=== PATIENT | male | born 1935 | race Caucasian/White ===

== ENCOUNTER → 2017-12-09 10:00 | Outpatient (CLI) | payer MEDICARE, OTHER, SELFPAY ==
[2017-12-09 12:32] LABS: Anion Gap 7 (5-15); BUN 21 mg/dL (7-18); BUN/Creat Ratio 17.6 RATIO (10-20); Calcium,Total 8.5 mg/dL (8.5-10.1); Chloride 108 mmol/L (98-107); Creatinine, Serum 1.19 mg/dL (0.70-1.30); EST Glomerular Filtration Rate 63 mL/min (>60); Est Glom Filt Rate - Afr Amer 76 mL/min (>60); Glucose 122 mg/dL (74-106); Sodium Level 142 mmol/L (136-145)
== END ==
PROVIDERS: Family Provider Family Medicine; PCP Family Medicine; Visit Provider Family Medicine
DX: I10 Essential (primary) hypertension (principal)
CPT/HCPCS: 36415; 80048

== ENCOUNTER → 2018-06-09 08:47 | Outpatient (CLI) | payer MEDICARE, OTHER, SELFPAY ==
[2018-06-09 10:32] LABS: AST(SGOT) 16 U/L (15-37); Alanine Aminotransfer ALT/SGPT 23 U/L (16-61); Albumin, Serum 3.4 g/dL (3.2-5.0); Alkaline Phosphatase 62 U/L (45-117); Anion Gap 10 (5-15); BUN 22 mg/dL (7-18); BUN/Creat Ratio 15.7 RATIO (10-20); Bilirubin, Direct 0.14 mg/dL (0.00-0.30); Calcium,Total 8.3 mg/dL (8.5-10.1); Chloride 107 mmol/L (98-107); Cholesterol 104 mg/dL (200); EST Glomerular Filtration Rate 52 mL/min (>60); Est Glom Filt Rate - Afr Amer 63 mL/min (>60); Globulin 3.9 g/dL (2.2-4.2); Glucose 130 mg/dL (74-106); High Density Lipoprotein 52 mg/dL; Protein, Total 7.3 g/dL (6.4-8.2); Sodium Level 144 mmol/L (136-145); Triglycerides 90 mg/dL; Very Low Density Lipoprotein 18 mg/dL (5-40)
[2018-06-09 10:59] LABS: Microalbumin:Creatinine Ratio 2095.5 mg/g CRE (<30 mg/g CRE)
--- OUTSIDE RECORDS SUMMARY | 2018-09-10 20:02 | XMS RPT_ITS ---
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 criteria. Please note revised GLUCOSE reference range effective 2017. LAB L501.1000 7-18 mg/dL High BUN 22 LAB L501.1100 0.70-1.30 mg/dL High CREAT,SERUM 1.40 Result Comment: The validity of the calculated GFR AND GFRAA in patients over 70 years has not been determined. Clinical correlation is essential. LAB L501.1110 >60 mL/min Low EST GFR 52 Result Comment: Non- GFR Calc LAB L501.1115 >60 mL/min Normal EST GFR - AA 63 Result Comment: GFR Calc LAB L501.1300 10-20 RATIO Normal BUN/CRE 15.7 LAB L501.2200 8.5-10.1 mg/dL Low CA 8.3 LAB L501.5300 136-145 mmol/L NA Normal 144 LAB L501.5600 3.5-5.1 mmol/L K Normal 4.0 LAB L501.5900 98-107 mmol/L CL Normal 107 LAB L501.6100 21.0-32.0 mmol/L Normal CO2 27.0 LAB L501.6200 5-15 Normal GAP 10 Performed By: #### L500.2500, L500.3400, L500.4100 #### [facility] [address] [place], [address] LIVER PROFILE Collected: 06/09/2018 Status: F Source: [place] 8:49 AM [facility] REPOSITORY TYPE CODE TESTS RESULT OUT OF RANGE REFERENCE UNITS LAB L501.1500 6.4-8.2 g/dL Normal T PROT 7.3 LAB L501.1800 3.2-5.0 g/dL Normal ALB 3.4 LAB L501.1950 2.2-4.2 g/dL Normal GLOB 3.9 LAB L501.4100 15-37 U/L Normal AST 16 LAB L501.4305 45-117 U/L Normal ALK P 62 LAB L501.4405 16-61 U/L Normal ALT 23 LAB L501.4600 0.20-1.00 mg/dL Normal T BILI 0.60 LAB L501.4700 0.00-0.30 mg/dL Normal D BILI 0.14 Performed By: #### L500.2500, L500.3400, L500.4100 #### [facility] [address] [place], [place], [id number] LIPID PROFILE Collected: 06/09/2018 Status: F Source: [place] 8:49 AM [facility] REPOSITORY TYPE CODE TESTS RESULT OUT OF RANGE REFERENCE UNITS LAB L501.4900 200 mg/dL Normal CHOL 104 Result Comment: <200 mg/dL Desirable 200-240 mg/dL Borderline >240 mg/dL High Risk LAB L501.5000 mg/dL Normal TRIG 90 Result Comment: The drugs N-Acetylcysteine and Metamizole may falsely depress this assay. Serum Triglycerides Reference Interval Normal <150 mg/dL Borderline high 150 - 199 mg/dL High 200 - 499 mg/dL Very High > or = 500 mg/dL LAB L501.6400 mg/dL Normal HDL 52 Result Comment: The drugs N-Acetylcysteine and Metamizole may falsely depress this assay. Reference Range HDL <40 mg/dL Low HDL Cholesterol HDL >or= 60 mg/dL High HDL Cholesterol LAB L501.6500 0-130 mg/dL Normal LDL 34 LAB L501.6600 5-40 mg/dL Normal VLDL 18 Performed By: #### L500.2500, L500.3400, L500.4100 #### [facility] [address] [place], [address] MICROALB:CREAT Collected: 06/09/2018 Status: F Source: [place] [facility] UR 8:49 AM [facility] REPOSITORY TYPE CODE TESTS RESULT OUT OF RANGE REFERENCE UNITS LAB L501.1200 NO RANGE EST. mg/dL Normal UR CREAT 17.80 LAB L502.0500 NO RANGE EST. mg/L Normal 373.0 MICROALBUMIN ,UR LAB L502.0600 <30 mg/g CRE mg/g CRE High 2095.5 MALB:CREAT Performed By: #### L502.0250 #### [facility] [address] [place], [address] BASIC METABOLIC Collected: 12/09/2017 Status: F Source: [place] PROFILE (BMP) 10:02 AM [facility] REPOSITORY TYPE CODE TESTS RESULT OUT OF RANGE REFERENCE UNITS LAB L501.0100 74-106 mg/dL High GLU 122 Result Comment: Fasting Glucose result from 100 to 125 mg/dL suggests IMPAIRED HOMEOSTASIS per A.D.A. criteria. Please note revised GLUCOSE reference range effective 2017. LAB L501.1000 7-18 mg/dL High BUN 21 LAB L501.1100 0.70-1.30 mg/dL Normal CREAT,SERUM 1.19 Result Comment: The validity of the calculated GFR AND GFRAA in patients over 70 years has not been determined. Clinical correlation is essential. LAB L501.1110 >60 mL/min Normal EST GFR 63 Result Comment: Non- GFR Calc LAB L501.1115 >60 mL/min Normal EST GFR - AA 76 Result Comment: GFR Calc LAB L501.1300 10-20 RATIO Normal BUN/CRE 17.6 LAB L501.2200 8.5-10.1 mg/dL CA Normal 8.5 LAB L501.5300 136-145 mmol/L NA Normal 142 LAB L501.5600 3.5-5.1 mmol/L K Normal 4.0 LAB L501.5900 98-107 mmol/L High CL 108 LAB L501.6100 21.0-32.0 mmol/L Normal CO2 27.0 LAB L501.6200 5-15 Normal GAP 7 Performed By: #### L500.2500 #### [facility] [address] [place], [address] ALLERGIES ALLERGIES No Allergies Records FoundENCOUNTERS ENCOUNTERS ADMIT/DISCHARGE ACCOUNT ADMITTING ENCOUNTER LOCATION SOURCE NUMBER CLASS 06/09/2018 [id number] [facility] 8 [facility] ing:MFPLAB Repository 12/09/[id number] ing:MFPLAB Repository PAYERS PAYERS ENCOUNTER GUARANTOR PAYER SUBSCRIBER SOURCE 06/09/2018 Kaya Singh Primary Kaya Nagel [id number] CR Insurance:MEDICARE NickleDOB: [address] [place] BPolicy Number: [id number] [address]Ktn: [id number] Repository Date:2018-06-09 () 06/09/2018 Secondary Kaya Nagel Insurance:HUMANA NickleDOB[id number] Hospital Number: Repository [id number] Date:[id number] [id number]: 06/09/2018 Tertiary NOT GIVENUNK Yolande Insurance:SELF PAY [facility] Hospital Number: Effective Repository Date:2018-06-09 12/09/2017 Kaya Singh Primary Kaya Nagel [id number] CR Insurance:MEDICARE NickleDOB: [address] [place], [place] BPolicy Number: [id number] [address]Zue: [id number] Repository Date:2017-12-09 (HP) 12/09/2017 Secondary Kaya Singh [place] Insurance:HUMANA NickleDOB: [facility] [id number] Hospital Number: Repository [id number] Date:[id number] [address] [place] [id number]: 12/09/2017 Tertiary NOT GIVENUNK Y[place]ande Insurance:SELF PAY [facility] Number: Effective Repository Date:2017-12-09
== END ==
PROVIDERS: Family Provider Family Medicine; PCP Family Medicine; Visit Provider Family Medicine
DX: E11.9 Type 2 diabetes mellitus without complications (principal)
CPT/HCPCS: 36415; 80048; 80061; 80076; 82043; 82570

== ENCOUNTER 2018-09-01 11:38 | Emergency (ER) | payer MEDICARE, OTHER, SELFPAY ==
[2018-09-01 11:39] VITALS: PULSE 67; RESP 19; TEMP 36.8; O2SAT 98; BMI 26.2
--- NOTE | 2018-09-01 11:58 | EKG12_ITS ---
Test Reason : CP Blood Pressure : / mmHG Vent. Rate : 067 BPM Atrial Rate : 067 BPM P-R Int : 186 ms QRS Dur : 100 ms QT Int : 422 ms P-R-T Axes : 095 033 080 degrees QTc Int : 445 ms Sinus rhythm with occasional and consecutive Premature ventricular complexes Nonspecific ST abnormality Abnormal ECG Confirmed by MARGARITA KUMAR, SARA ([id number]), web content editor SHEBA BATEMAN ([id number]) on 09/04/2018 10:46:26 AM Referred By: IBIS Confirmed By:SARA AVILA MD
--- NOTE | 2018-09-01 11:59 | CT_ITS ---
STUDY: CT FACIAL BONES WITHOUT CONTRAST REASON FOR EXAM: Male, 83 years old. Chronic congestion. RADIATION DOSAGE (If Supplied By Facility): CTDIvol = ( 33.45 ) mGy, DLP = ( 712.78 ) mGycm TECHNIQUE: The patient was scanned in a multi detector CT scanner. Sagittal and coronal images were reconstructed. Individualized dose optimization techniques were used for this CT. COMPARISON: None. FINDINGS: Normal soft tissue structures. Normal orbital olivarez and orbital contents. Normal nasal bones and anterior nasal spine. Normal facial bones. There is no demonstrated fracture. Dilatation of the nasal septum towards the right side of the midline. Mild degree mucosal thickening along the posterior aspect of the left ethmoid sinus. CT/Sinus/Facial Bone IMPRESSION: Nasal septal deviation towards the right side of the midline. Mild degree mucosal thickening along the posterolateral aspect of the left ethmoid sinus. Electronically Signed: Arnulfo Buckley, at 13:19 EDT , Service support ,
[2018-09-01 12:12] LABS: Absolute Lymphocyte Count 1.33 X10^3/ul (0.83-4.51); Absolute Neutrophil Count 4.8 X10^3/uL (2.0-7.7); Basophil# 0.02 X10^3/uL; Basophil% 0.3 % (0-1); Eosinophil# 0.04 X10^3/uL; Eosinophils% 0.6 % (0-5); Hematocrit 38.4 % (40-54); Hemoglobin 12.4 g/dl (13.0-16.5); Lymphocyte # 1.33 X10^3/ul (4.0); Lymphocyte % 18.8 % (19-41); Mean Corp Hgb Conc 32.3 g/gl (32-36); Mean Corpuscular Hgb 31.8 pg (27.0-32.0); Mean Corpuscular Volume 98.5 fL (80-94); Mean Platelet Vol. 10.9 fl (6.2-12.0); Monocyte# 0.88 X10^3/uL; Monocyte% 12.4 % (0-10); Neutrophil % 67.8 % (47-70); POSITIVE COUNT NO; POSITIVE DIFFERENTIAL NO; POSITIVE MORPHOLOGY NO; Platelet Count 249 K/mm3 (150-450); RBC Distribution Width CV 13.6 % (11.6-14.6); RBC Distribution Width SD 48.7 fl (35.1-43.9); White Blood Count 7.1 K/mm3 (4.4-11.0)
[2018-09-01 12:17] VITALS: BP 156/55; PULSE 64; RESP 26; O2SAT 95
[2018-09-01 12:23] LABS: Anion Gap 10 (5-15); BUN 24 mg/dL (7-18); BUN/Creat Ratio 17.3 RATIO (10-20); Calcium,Total 8.6 mg/dL (8.5-10.1); Chloride 107 mmol/L (98-107); Creatinine, Serum 1.39 mg/dL (0.70-1.30); EST Glomerular Filtration Rate 52 mL/min (>60); Est Glom Filt Rate - Afr Amer 63 mL/min (>60); Estimated Creatinine Clearance 41.68 ml/min; Glucose 124 mg/dL (74-106); Potassium 3.9 mmol/L (3.5-5.1); Sodium Level 143 mmol/L (136-145)
--- NOTE | 2018-09-01 12:46 | RAD_ITS ---
STUDY: X-RAY CHEST REASON FOR EXAM: Male, 83 years old. Chest pain. TECHNIQUE: PA and lateral views of the chest. COMPARISON: None. FINDINGS: EKG electrodes are seen. Hyperinflation. Evidence of fibrocalcific scarring in both lung apices. There is no demonstrated pleural abnormality. Normal size heart. A left-sided dual-chamber pacemaker is seen. Normal mediastinum and minerva. Normal visualized pulmonary arteries. There is atherosclerotic calcification of the aortic arch with tortuosity. There are diffuse degenerative changes of the visualized thoracic spine. Normal visualized ribs, clavicles, and shoulders. There is no demonstrated abnormality of the visualized soft tissue structures of the upper abdomen. RAD/Chest PA and Lateral IMPRESSION: Hyperinflation. No acute abnormality is seen. Electronically Signed: Arnulfo Buckley, at 13:21 EDT , Service support ,
[2018-09-01 14:03] VITALS: RESP 18
[2018-09-01 15:16] VITALS: BP 163/62; PULSE 60; RESP 16; O2SAT 94
--- NOTE | 2018-09-01 15:50 | ED.VISSUMM ---
- ER Visit Summary Date of Service: 09/01/18 Chief Complaint: Nasal congestion History of Present Illness: The patient is a 83 M who states for the past month he has had nasal congestion. It has become so that is affecting his sleep and last night he could not sleep at all. He states he was getting rather upset with this. He read that it could be related to his losartan so he spoke with his mechanical integrity engineer and a half his dose. This did not change his symptoms. He brought some Afrin but not take it due to the potential side effect of hypertension. He states that today he had 2 episodes lasting about 30 minutes each of chest tightness while he was frustrated. States he feels pretty good now. He notes a stress test 2 weeks ago that was negative. Denies any fevers. He is on Xarelto for underlying A. fib and is in a paced rhythm Physical Examination: Afebrile vital signs are stable Gen: Well-nourished well-developed Head: Normocephalic atraumatic Eyes: Perrl EOMI ENT: TMs clear turbinate edema moist mucous membranes Neck: Supple no lymphadenopathy no JVD nontender CVS: Regular rate rhythm no murmurs normal S1-S2 Respiratory: No distress clear to auscultation bilaterally chest nontender Abdomen: Soft nontender nondistended normal bowel sounds no masses Back: Nontender Extremity: Nontender no edema Skin: Normal color no rash Neuro: alert orientated ?3 CN II-XII intact normal strength sensation reflexes gait cerebellar Psych: Normal affect normal mood Test Results: EKG showed a sinus rhythm at a rate of 67. 2 sets of cardiac enzymes are negative. Chest x-ray showed no acute findings. CT of sinuses showed no evidence of sinusitis. Emergency Department Course and Treatment: Patient will be started on Flonase. He is to follow-up with ENT as well as his mechanical integrity engineer. Impression: 1. Nasal congestion 2. Chest pain This note was generated with [employer] dictation software. It may contain incorrect words, spelling, and punctuation that were not noted in review of the chart prior to signing ED Disposition - Plan for ED Patient: Disposition: Home or Assisted Living Prescriptions: Fluticasone 0.05% [Flonase Nasal [place]] 2 spray NASAL DAILY #1 bottle Referrals: Bert Nix MD [Primary Care Provider] - 1 Week if not improving Nahum Dooley MD [STAFF PHYSICIAN] - (call if you wish to follow up with ENT)
[2018-09-01 16:04] VITALS: BP 166/69; PULSE 60; RESP 14
== END 2018-09-01 16:05 | disposition home or self-care (01) ==
PROVIDERS: Emergency Provider Emergency Medicine; Family Provider Family Medicine; PCP Family Medicine
DX: R07.9 Chest pain, unspecified (principal); R09.81 Nasal congestion; I48.91 Unspecified atrial fibrillation; E11.9 Type 2 diabetes mellitus without complications; I10 Essential (primary) hypertension; Z79.01 Long term (current) use of anticoagulants; Z95.0 Presence of cardiac pacemaker; Z95.5 Presence of coronary angioplasty implant and graft
CPT/HCPCS: 70486; 71046; 80048; 84484; 85025; 93005; 99284; A4216

== ENCOUNTER → 2018-12-08 09:02 | Outpatient (CLI) | payer MEDICARE, OTHER, SELFPAY ==
[2018-12-08 10:53] LABS: Anion Gap 12 (5-15); BUN 21 mg/dL (7-18); BUN/Creat Ratio 17.6 RATIO (10-20); Chloride 107 mmol/L (98-107); Creatinine, Serum 1.19 mg/dL (0.70-1.30); EST Glomerular Filtration Rate 62 mL/min (>60); Est Glom Filt Rate - Afr Amer 75 mL/min (>60); Glucose 110 mg/dL (74-106); Potassium 4.3 mmol/L (3.5-5.1); Sodium Level 143 mmol/L (136-145)
== END ==
PROVIDERS: Family Provider Family Medicine; PCP Family Medicine; Referring Provider Family Medicine; Visit Provider Family Medicine
DX: E11.9 Type 2 diabetes mellitus without complications (principal)
CPT/HCPCS: 36415; 80048

== ENCOUNTER → 2018-12-24 09:31 | Outpatient (CLI) | payer MEDICARE, OTHER, SELFPAY ==
--- NOTE | 2018-12-24 09:35 | ART_ITS ---
Reason For Study: claudication Left Segmental Pressures Left brachial= 149mmHg. Left posterior tibial artery = 115mmHg. Left dorsalis pedis artery = 111mmHg. Left digit = 81 mmHg. The left dorsalis pedis waveforms are biphasic. The left posterior tibial artery waveforms are biphasic. Right Segmental Pressures Right brachial= 148mmHg. Right dorsalis pedis artery = 186mmHg. Right digit = 83 mmHg. UTILITY ARBORIST is noncompressible. The right dorsalis pedis waveforms are biphasic. The right posterior tibial artery waveforms are biphasic. Indices The right ankle brachial index by the dorsalis pedis is 1.25. The right digital-brachial index is .56. UTILITY ARBORIST is noncompressible. The right ankle brachial index by the dorsalis pedis post exercise is .6. The left ankle brachial index by the posterior tibial artery is .77. The left ankle brachial index by the dorsalis pedis is .74. The left digital-brachial index is .54. The left posterior tibial artery index post exercise is .72. Interpretation Summary Biphasic Doppler waveforms are noted at ankle level bilaterally. Pulse-volume recording waveform amplitudes appear satisfactory at ankle and digital levels bilaterally. The resting right ankle- brachial index is normal. The resting left ankle-brachial index is moderately diminished. Digital- brachial indices are mildly diminished bilaterally. Following a period of exercise, the right ankle pressure diminishes, as does the right ankle-brachial index, which is an abnormal physiological response. 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 There is evidence of mild/moderate arterial occlusive disease in the left lower extremity. Ordering Physician: Bert Nix Performed By: JAVI LUNA T
== END ==
PROVIDERS: Family Provider Family Medicine; PCP Family Medicine; Referring Provider Family Medicine; Visit Provider Family Medicine
DX: I73.9 Peripheral vascular disease, unspecified (principal)
CPT/HCPCS: 93922

== ENCOUNTER → 2019-03-27 09:28 | Outpatient (CLI) | payer MEDICARE, OTHER, SELFPAY ==
[2019-03-19 08:18] VITALS: BMI 26.2
--- NOTE | 2019-03-27 09:31 | CDU_ITS ---
Reason For Study: Carotid stenosis Rt. Velocities/BP Lt. Velocities/BP Prox CCA 82.6/8.2 cm/sec. Prox CCA 137.5/17 cm/sec. Mid CCA 152.1/13.3 cm/sec. Mid CCA 178.4/20.4 cm/sec. Dist CCA 135.7/13.3 cm/sec. Dist CCA 187.2/20.4 cm/sec. Prox ICA 156.2/29.3 cm/sec. Prox ICA 249.8/33.3 cm/sec. Mid ICA 189.9/34.5 cm/sec. Mid ICA 149.6/43 cm/sec. Dist ICA 114.7/21.5 cm/sec. Dist ICA 82.7/18.8 cm/sec. Rt. ICA/CCA = 1.4. Lt. ICA/CCA = 1.4. Prox ECA 358 cm/sec. Prox ECA 278.9 cm/sec. Rt. Vert. 49.5/12.6 cm/sec. Lt. Vert. 57/21.1 cm/sec. Right Extracranial There is heterogeneous, irregular atherosclerotic plaque noted in the right common carotid artery. There is heterogeneous, irregular atherosclerotic plaque noted in the right internal carotid artery. The atherosclerotic plaque causes acoustic shadowing. There is heterogeneous, irregular atherosclerotic plaque noted in the right external carotid artery. Antegrade flow is noted in the right vertebral artery. Left Extracranial There is heterogeneous, irregular atherosclerotic plaque noted in the left common carotid artery. There is heterogeneous, irregular atherosclerotic plaque noted in the left internal carotid artery. The atherosclerotic plaque causes acoustic shadowing. There is heterogeneous, irregular atherosclerotic plaque noted in the left external carotid artery. Antegrade flow is noted in the left vertebral artery. Procedure Carotid Duplex [id number]. Exam performed in department. Interpretation Summary Irregular calcific plague right common carotid, proximal internal carotid and proximal external carotid 50-69% stenosis right internal carotid >50% stenosis right external carotid Irregular calcific plague left common carotid, proximal internal and proximal external carotid >70% stenosis left internal carotid >50% stenosis left external carotid Patent and antegrade vertebrals bilaterally with <50% stenosis Progression of disease since 08/09/16 Ordering Physician: Raymond Amanda Referring Physician: Bert Nix Performed By: Yoanna Gonsalez RVT
== END ==
PROVIDERS: Family Provider Family Medicine; PCP Family Medicine; Referring Provider Surgery; Visit Provider Surgery
DX: I65.23 Occlusion and stenosis of bilateral carotid arteries (principal)
CPT/HCPCS: 93880

== ENCOUNTER → 2019-05-04 08:00 | Outpatient (CLI) | payer MEDICARE, OTHER, SELFPAY ==
[2019-03-19 08:18] VITALS: BMI 26.2
--- NOTE | 2019-05-04 08:34 | EKG12_ITS ---
Test Reason : PRE OP Blood Pressure : / mmHG Vent. Rate : 060 BPM Atrial Rate : 060 BPM P-R Int : 210 ms QRS Dur : 108 ms QT Int : 432 ms P-R-T Axes : 000 -04 083 degrees QTc Int : 432 ms Electronic atrial pacemaker ST abnormality, possible digitalis effect Abnormal ECG Confirmed by MARGARITA KUMAR, SARA ([id number]), image editor JESSI DUQUE ([id number]) on 05/05/2019 1:56:45 PM Referred By: Raymond Amanda Confirmed By:SARA AVILA MD
== END ==
PROVIDERS: Family Provider Family Medicine; PCP Family Medicine; Referring Provider Surgery; Visit Provider Surgery
DX: Z01.818 Encounter for other preprocedural examination (principal); Z95.0 Presence of cardiac pacemaker
CPT/HCPCS: 93005

== ENCOUNTER 2019-05-06 09:44 | Day surgery (SDC) | payer MEDICARE, OTHER, SELFPAY ==
[2019-03-19 08:18] VITALS: BMI 26.2
[2019-05-04 08:50] LABS: Hematocrit 37.4 % (40-54); Hemoglobin 11.9 g/dL (13.0-16.5); Mean Corp Hgb Conc 31.8 g/dL (32-36); Mean Corpuscular Hgb 30.8 pg (27.0-32.0); Mean Corpuscular Volume 96.9 fL (80-94); Mean Platelet Vol. 10.9 fl (6.2-12.0); Platelet Count 219 K/mm3 (150-450); RBC Distribution Width CV 12.9 % (11.6-14.6); RBC Distribution Width SD 45.7 fl (35.1-43.9); Red Blood Count 3.86 M/mm3 (4.6-6.2); White Blood Count 7.2 K/mm3 (4.4-11.0)
[2019-05-04 09:06] LABS: Anion Gap 6 (5-15); BUN 25 mg/dL (7-18); BUN/Creat Ratio 16.7 RATIO (10-20); Calcium,Total 8.3 mg/dL (8.5-10.1); Chloride 111 mmol/L (98-107); EST Glomerular Filtration Rate 48 mL/min (>60); Est Glom Filt Rate - Afr Amer 58 mL/min (>60); Glucose 117 mg/dL (74-106); Potassium 4.4 mmol/L (3.5-5.1); Sodium Level 142 mmol/L (136-145)
[2019-05-05 08:47] VITALS: BMI 27.2
--- NOTE | 2019-05-06 10:50 | PCM.HP.BLA ---
Problem List (1) Peripheral arterial occlusive disease Status: Acute History and Physical Date of Admission: 05/06/19 [facility] [address] [place] [address] OFFICE VISIT Date of Service: 05/06/2019 1033 MR#:[id number]:[id number] Name: KAYA HARRIS #:[id number] : 1935 Provider:Raymond Amanda MD Age/Sex: 83/M Location:[facility] Status:Signed Intake Vital Signs 05/06/19 Body Mass Index (BMI) 27.3 05/06/19 Height 5 ft 7 in 05/06/19 Weight: 174 lb 05/06/19 Body Mass Index (BMI) 27.2 05/06/19 Blood Pressure 120/53 L 05/06/19 Blood Pressure Location Rt brachial 05/06/19 Respiratory Rate 18 Intake Visit Reasons: PAD Director Ship Required: No Is patient in pain?: No Allergies ofloxacin [From Floxin] Allergy (Verified 05/06/19 1033) Nausea Medications Fluticasone 0.05% [Flonase Nasal [place]] 2 spray NASAL DAILY #1 bottle 09/01/18 [Rx] amlodipine 10 mg tablet 10 mg PO DAILY 03/19/19 [History Confirmed 03/19/19] atorvastatin 20 mg tablet 20 mg PO DAILY 03/19/19 [History Confirmed 03/19/19] clonidine HCl 0.3 mg tablet 0.3 mg PO BID 03/19/19 [History Confirmed 03/19/19] dofetilide 500 mcg capsule 500 mcg PO Q12H 03/19/19 [History Confirmed 03/19/19] hydralazine 50 mg tablet 50 mg PO TID 03/19/19 [History Confirmed 03/19/19] isosorbide mononitrate ER 60 mg tablet,extended release 24 hr 60 mg PO DAILY 03/19/19 [History Confirmed 03/19/19] losartan 50 mg tablet 50 mg PO DAILY 03/19/19 [History Confirmed 03/19/19] metformin 500 mg tablet 500 mg PO DAILY tab 03/19/19 [History Confirmed 03/19/19] multivitamin tablet 1 tab PO DAILY 03/19/19 [History Confirmed 03/19/19] nitroglycerin 0.4 mg sublingual tablet 0.4 mg SUBLINGUAL Q5-15M 03/19/19 [History Confirmed 03/19/19] rivaroxaban 20 mg tablet 20 mg PO DAILY 03/19/19 [History Confirmed 03/19/19] vit C 250 mg-E 200 unit-zinc 40 mg-copper 1 [id number] capsule 1 tab PO BID 03/19/19 [History Confirmed 03/19/19] [facility] Medical History A-fib (Acute) CAD (coronary artery disease) (Acute) Diabetes (Acute) PAD (peripheral artery disease) (Acute) HTN (hypertension) (Chronic) Surgical History S/P prostatectomy (Acute) Status cardiac pacemaker (Acute) Social History (Updated 03/19/19 @ 08:45 by Raymond Amanda MD) Smoking Status: Never smoker alcohol intake: current alcohol intake frequency: a few times a month HPI: Patient is an 83 y/o M I am following for an update history and physical for his procedure today. Patient denies recent hospitalizations or illnesses since his last office visit in February. He denies previous complications with anesthesia. He is on Xarelto. Patient has a pacemaker and previous stent placed. Patient has had a previous myocardial infarction. Patient is also on Metformin. Patient's previous history per Dr. Amanda: KAYA HARRIS, is a 83 M who presents to the office today for surgical consultation for bilateral lower extremity vascular claudication. The patient is kindly referred by Dr. Bert Nix and a written copy of my surgical consult and recommendations will return to him. For several years the patient has had increasing difficulties with walking. He states that bilateral cast will weaken and cramp. If he walks very slowly he can go a reasonable distance but if he tries to go any pace or up an incline of both calves will fatigue and cramp. He is a long-term type II diabetic. Is not on insulin. He does take metformin. He was a remote cigarette smoker but he quit in 1979. He has had a previous myocardial infarction approximately 2001 and he had a coronary stent placed. He also has had a pacemaker placed. He is on anticoagulation in the form of Xarelto. At the [facility] on December 24, 2018 he had PVRs with exercise. That demonstrated findings within the range of vascular claudication. The right LEIF went from resting 1.252 immediately after exercise it 0.6. Left LEIF went from resting 0.772 immediately after exercise at 0.72. Fortunately the patient does not note any symptoms that would suggest rest pain. He has not had any sores or ulcerations that were nonhealing. [facility] [address] [place] [address] Ankle Brachial Index 12/24/18 0939 MR#: [id number] Name:KAYA HARRIS CRep #:[id number] : 1935 83From:Mich Herrmann MD Attending Dr: Boyd KUMAR,Daphne: JESSICA CLI Ordering Dr: Bert Nix MDDate: 12/24/18 [facility]: Reason For Study: claudication Left Segmental Pressures Left brachial= 149mmHg. Left posterior tibial artery = 115mmHg. Left dorsalis pedis artery = 111mmHg. Left digit = 81 mmHg. The left dorsalis pedis waveforms are biphasic. The left posterior tibial artery waveforms are biphasic. Right Segmental Pressures Right brachial= 148mmHg. Right dorsalis pedis artery = 186mmHg. Right digit = 83 mmHg. SYSTEMS DEVELOPMENT CONSULTANT is noncompressible. The right dorsalis pedis waveforms are biphasic. The right posterior tibial artery waveforms are biphasic. Indices The right ankle brachial index by the dorsalis pedis is 1.25. The right digital-brachial index is .56. SYSTEMS DEVELOPMENT CONSULTANT is noncompressible. The right ankle brachial index by the dorsalis pedis post exercise is .6. The left ankle brachial index by the posterior tibial artery is .77. The left ankle brachial index by the dorsalis pedis is .74. The left digital-brachial index is .54. The left posterior tibial artery index post exercise is .72. Interpretation Summary Biphasic Doppler waveforms are noted at ankle level bilaterally. Pulse-volume recording waveform amplitudes appear satisfactory at ankle and digital levels bilaterally. The resting right ankle- brachial index is normal. The resting left ankle-brachial index is moderately diminished. Digital- brachial indices are mildly diminished bilaterally. Following a period of exercise, the right ankle pressure diminishes, as does the right ankle-brachial index, which is an abnormal physiological response. 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 There is evidence of mild/moderate arterial occlusive disease in the left lower extremity. Ordering Physician: Bert Nix Performed By: JAVI LUNA Bautista 12/25/18 1143 Date Mich Herrmann MD ROS General General: Yes weight change; no appetite, fatigue, colon cancer, breast cancer or weakness HEENT HEENT: Yes eye injury and eye surgery; no difficulty swallowing, swollen glands or hoarseness Endo Endocrine: Yes diabetes mellitus; no thyroid disease, thyroid cancer, Hair loss, heat intolerance or cold intolerance Skin Skin: No rash or changing moles Breast Breast: No left breast lump, right breast lump, nipple discharge, breast pain, abnormal mammogram, abnormal US or breast enlargement Musc Musculoskeletal: No back problems, arthritis, rheumatoid arthritis, gout or joint pain Cardio Cardiovascular: Yes murmur, pacemaker, atrial fibrillation, high blood pressure, heart attack and heart stent; no heart disease, palpitations, shortness of breat with exertion or chest pain Psych Psychiatric: No depression, anxiety or hearing voices Resp Respiratory: No shortness of breath, No sleep apnea, No cough, No COPD, No asthma, No emphysema, No wheezing Gastro Gastrointestinal: No abdominal pain, No nausea or vomiting, No diarrhea, No constipation, No blood in stool, No acid reflux, No hemorrhoids, No ulcers, No gallbladder problem, No black,tarry stools Moody Hematologic: Yes blood thinners, No blood disorders, No bleeding, No anemia, No blood clots Neuro Neurologic: No system reviewed and no additional complaints, except as docu, No as per HPI, No abnormal walking, No abnormal hearing, No abnormal movements, No abnormal speech, No behavioral changes, No burning sensations, No confusion, No seizure-like activity, No unsteadiness, No dizziness, No localized weakness, No frequent falls, No headache(s), No lack of coordination, No loss of vision, No memory loss, No numbness, No other visual disturbances, No radiating pain, No restless legs, No sensory deficit, No fainting, No tingling, No tremor(s), No weakness, No other Exam Const General: cooperative, healthy appearing, comfortable, no acute distress Nutritional Appearance: average body habitus Orientation: alert, awake HENTN Head: normal to inspection Chest Breast Palpation: No nipple discharge Resp Effort & Inspection: normal respiratory effort Auscultation: clear to auscultation bilaterally Cardio Rate: regular rate Heart Sounds: murmur Other: Pacemaker left anterior chest Bilateral carotids 3+. Bilateral femoral 3+. Right popliteal 3+. Left popliteal 2+. Right DP 0. Right PT 2+. Left DP 2+. Left PT 0 GI Palpation: soft, no hepatosplenomegaly Auscultation: normal bowel sounds Musc Cervical Spine: normal cervical lordosis Neuro Cognition: normal cognition Extrem Other: Loss of hair bilateral lower extremity venous filling is identified slightly diminished capillary refill bilateral feet. Mild elevation pallor. Skin is intact Psych Affect: normal affect Assessment & Plan Problems 1. Peripheral arterial occlusive disease I77.[address] Amanda will doan to perform an abdominal pelvic lower extremity arteriogram with left lower extremity intervention. Procedure details, risks and benefits have been reviewed. Patient has held his Xarelto for 24 hours. Patient is to hold his Metformin the day of the procedure and 2 days after the procedure. Patient and his have had the opportunity to ask and have questions answered. Patient verbally understands and agrees with the plan. Code Visit Inpatient E&M: 63185 [facility] L[facility] - No charge
--- NOTE | 2019-05-06 13:29 | OP.PCM_ITS ---
Problem List (1) Peripheral arterial occlusive disease Status: Acute Report of Operation Date of Procedure: 05/06/19 Pre-Operative Diagnosis: Bilateral lower extremity quality of life limiting calf claudication Post-Operative Diagnosis: Bilateral lower extremity quality of life limiting calf claudication. High-grade left popliteal at sclerotic stenosis, ectasia, and ulceration Surgery/Procedure Performed:: Abdominal pelvic left lower extremity arteriogram with left popliteal 3 x 40 mm Powerflex angioplasty and left popliteal 4 x 40 mm Powerflex angioplasty and left popliteal 6 x 50 mm Viabahn stent grafting and left popliteal 6 x 40 mm Powerflex angioplasty Description of Surgical Findings:: Timeout informed consent was obtained. 83-year-old gent was taken to special procedures lab placed on the table. Bilateral groins were sterilely prepped and draped. 50 mcg of fentanyl 1 mg Versed were given as intravenous sedation. Ultrasound was used to identify the right common femoral artery and distinguish it from the superficial femoral and profundofemoral. Under ultrasound guidance 2% lidocaine was instilled as a local anesthetic. Under ultrasound guidance a micropuncture needle was inserted into the right common femoral artery followed by Seldinger wire. Micropuncture sheath inserted. 035 J-wire was inserted. A 5 Maldivian short sheath guide was inserted. Using an 035 angled Glidewire 5 Maldivian universal flush catheter placed into the distal abdominal aorta. Using 15 cc of carbon dioxide a aortic pelvic arteriogram was obtained. I then used an angled Glidewire to advance a 5 Maldivian universal flush catheter into the proximal left superficial femoral artery. Static views of the left superficial femoral and popliteal were obtained with carbon dioxide at 10 cc/inj. This identified clinically significant as of the left popliteal. Diluted TPA contrast was utilized. Throughout the entire procedure only 25 cc was used. Image was obtained in the left popliteal but this demonstrated an area of high- grade stenosis with ulceration and suspected ectasia. After inspection I felt that this area had a very high propensity for complete thrombosis as there was already proximal collateralization. Further discussed options with the patient. Elected to treat this area. I exchanged out the 5 Maldivian sheath for 7 Maldivian destination sheath over a 035 Magic wire. Then utilizing an 035 quick cross catheter and a 035 angled Glidewire and smart masking I was able to get the Glidewire to go past the area of high-grade stenosis. I then placed a 3 x 40 mm Powerflex balloon and performed balloon angioplasty and upstage that to a 4 x 40 mm Powerflex balloon when I could not get the stent graft ago. Finally I was able to get the stent graft to advance to position. This was a 6 x 50 mm Viabahn stent graft. It is of note that as soon as the 7 Maldivian destination sheath was inserted the patient received 8000 units of heparin and then the based upon ACT measurements he received another 1000 units of heparin. I was able to position the Viabahn in the popliteal artery at the area of ectasia and stenosis just proximal to the joint. I deployed it and then seated in place with a 6 x 40-minute were Powerflex. Final imaging demonstrated good positioning. There was additional disease proximally and distally but I felt that the high-grade critical disease had been covered. He tolerated the procedure well. The sheath dilator was removed over the wire. A Perclose device was inserted in the right groin and secured. Hemostasis was intact with pressure. Blood loss minimal no apparent complication he was taken to the recovery area in satisfactory condition. Images demonstrate what appear to be a generally patent distal aorta, iliac and external iliacs. On carbon dioxide imaging there was no evidence of high-grade stenosis. There is diffuse irregular disease throughout the left superficial femoral artery. There was high-grade dumbbell-like stenosis of the left superior popliteal with findings suggesting of plaque ulceration and possible ectasia. There was additional irregular disease of the distal left popliteal. There is occlusion of the left posterior tibial. The left anterior tibial and peroneal did make it to the ankle. Subsequent to the angioplasty and stenting the area of high-grade stenosis appears resolved with good positioning of the stent graft. There remains calcific plaque more proximally in the remains irregular stenosis in the infrageniculate popliteal however I did not feel that this was flow-limiting. Impression Successfully treated high-grade area of stenosis and ulceration and ectasia of the left proximal popliteal. Residual irregular disease throughout the left superficial femoral and distal popliteal with occlusion of the left posterior tibial. Raymond Amanda M.D., F.A.C.S. Type of Anesthesia:: IV Sedation, Local
[2019-05-06 13:45] LABS: ACT Activated Clotting Time 202 sec (74-137)
[2019-05-06 13:45] LABS: ACT Activated Clotting Time 125 sec (74-137)
[2019-05-06 15:45] VITALS: BP 151/69; PULSE 72; RESP 16; TEMP 37; O2SAT 96
[2019-05-06 16:45] VITALS: BP 150/57; PULSE 62; RESP 16; O2SAT 94
[2019-05-06] MEDS: 0.9% Normal Saline 1,000 ML 100 ML IV (16:45)
[2019-05-06] MEDS: Aspirin 81 MG TAB.CHEW PO (16:47)
[2019-05-06 17:45] VITALS: BP 155/64; PULSE 62; RESP 16; TEMP 36.7; O2SAT 98
--- NOTE | 2019-05-06 17:54 | NURSING ---
Patient bedrest complete 1744. Ambulated in hallway without issue. Denies pain other than slight tenderness when pressure applied to puncture site. VSS. Dressing to R groin c/d/i.
== END 2019-05-06 18:00 | disposition home or self-care (01) ==
LOC: CLSP 09:46 → PCU 05-07 09:23
PROVIDERS: Family Provider Family Medicine; PCP Family Medicine; Referring Provider Surgery; Visit Provider Surgery
DX: I70.212 Atherosclerosis of native arteries of extremities with intermittent claudication, left leg (principal); E11.51 Type 2 diabetes mellitus with diabetic peripheral angiopathy without gangrene; I25.10 Atherosclerotic heart disease of native coronary artery without angina pectoris; I48.91 Unspecified atrial fibrillation; I10 Essential (primary) hypertension; Z79.84 Long term (current) use of oral hypoglycemic drugs; Z79.01 Long term (current) use of anticoagulants; Z79.899 Other long term (current) drug therapy; I25.2 Old myocardial infarction; Z88.1 Allergy status to other antibiotic agents; Z87.891 Personal history of nicotine dependence; Z95.0 Presence of cardiac pacemaker; Z95.5 Presence of coronary angioplasty implant and graft
CPT/HCPCS: 36200; 36245; 36415; 37226; 75625; 75710; 76937; 80048; 85027; 85347; 99152; 99153; J7030; Q9967; C1725; C1760; C1769; C1874; C1887; C1894

== ENCOUNTER → 2019-06-02 08:24 | Outpatient (CLI) | payer MEDICARE, OTHER, SELFPAY ==
[2019-05-07 09:06] VITALS: BMI 26.2
--- NOTE | 2019-06-02 08:26 | ART_ITS ---
Reason For Study: PAD Procedure A bilateral lower extremity continuous wave Doppler with analog waveform analysis,segmental pressures,and ankle brachial indexes with exercise. Left Segmental Pressures Left brachial= 115mmHg. Left posterior tibial artery = 121mmHg. Left dorsalis pedis artery = 101mmHg. Left digit = 67 mmHg. The left dorsalis pedis waveforms are biphasic. The left posterior tibial artery waveforms are biphasic. Right Segmental Pressures Right brachial= 120mmHg. Right calf = >254mmHg. Right posterior tibial artery = 99mmHg. Right dorsalis pedis artery = 94mmHg. Right digit = 59 mmHg. The right dorsalis pedis waveforms are biphasic. The right posterior tibial artery waveforms are biphasic. Indices The right ankle brachial index by the dorsalis pedis is 0.78. The right ankle brachial index by the posterior tibial artery is 0.83. The right digital-brachial index is 0.49. The right post exercise ankle brachial index is 0.14. The left ankle brachial index by the dorsalis pedis is 0.84. The left ankle brachial index by the posterior tibial artery is 1.01. The left digital-brachial index is 0.56. The left post exercise ankle brachial index is 0.83. Interpretation Summary Moderately severe occlusive disease right lower extremity with dramatic indice decline with exercise. Moderately severe occlusive disease left lower extremity with abnormal but less dramatic decline with exercise. Ordering Physician: Raymond Amanda Referring Physician: Bert Nix Performed By: Yoanna Gonsalez RVT
--- NOTE | 2019-06-02 08:26 | ADUL_ITS ---
Reason For Study: PAD Left Velocities Ext Iliac Artery, dist = 195.7 cm./sec. Common Femoral Artery, mid = 213.8 cm./sec. Supf. Femoral Artery, prox = 159.6 cm./sec. Supf. Femoral Artery, mid = 269 cm./sec. Mobile plaque noted at mid SFA. Supf. Femoral Artery, dist = 40.7 cm./sec. Profunda Femoral Artery = 218.5 cm./sec. Popliteal artery, proximal to stent, 105.1 cm/sec. Popliteal artery, proximal stent, 90.4 cm/sec. Popliteal artery, mid stent, 81.8 cm/sec. Popliteal artery, distal stent, 94.1 cm/sec. Popliteal artery, distal to stent, 92.8 cm/sec. Post. Tibial Artery, prox = 68.3 cm./sec. Post Tibial Artery, mid = 31.1 cm./sec. Post Tibial Artery, dist. = 25.8 cm./sec. Peroneal Artery, prox = 59.8 cm./sec. Peroneal Artery, mid = 112.5 cm./sec. Peroneal Artery,dist. = 62.2 cm./sec. Ant.Tibial Artery, prox = 65.5 cm./sec. Ant Tibial Artery, mid = 65.5 cm./sec. Ant. Tibial Artery, distal = 81.8 cm./sec. Procedure Exam performed in department. Interpretation Summary Irregular plaque with turbulence left distal external iliac artery Irregular plaque left left profundofemoral and superficial femoral arteries Extensive irregular plaque with mobile plaque left mid superficial femoral artery Although there is not a velocity flow doubling to suggest greater than 50% stenosis at this location there is significant velocity declined distal to this area suggesting that the stenosis represents a hemodynamically significant finding. Patent stent left popliteal artery Patent left posterior tibial and peroneal and anterior tibial arteries. There is near doubling of velocities from the proximal to mid left peroneal artery suggesting less than 50% stenosis but likely close to this range. Ordering Physician: Raymond Amanda Referring Physician: Bert Nix Performed By: Yoanna Gonsalez RVT
== END ==
PROVIDERS: Family Provider Family Medicine; PCP Family Medicine; Referring Provider Family Medicine; Visit Provider Surgery
DX: I73.9 Peripheral vascular disease, unspecified (principal); I77.9 Disorder of arteries and arterioles, unspecified
CPT/HCPCS: 93924; 93926

== ENCOUNTER → 2019-07-23 10:07 | Outpatient (CLI) | payer MEDICARE, OTHER, SELFPAY ==
[2019-05-07 09:06] VITALS: BMI 26.2
[2019-07-23 12:37] LABS: Cholesterol 113 mg/dL (200); High Density Lipoprotein 41 mg/dL; Triglycerides 139 mg/dL; Very Low Density Lipoprotein 28 mg/dL (5-40)
== END ==
PROVIDERS: PCP Family Medicine; Referring Provider Internal Medicine Cardiovascular Disease; Visit Provider Internal Medicine Cardiovascular Disease
DX: E78.00 Pure hypercholesterolemia, unspecified (principal)
CPT/HCPCS: 36415; 80061

== ENCOUNTER → 2019-09-10 12:36 | Outpatient (CLI) | payer MEDICARE, OTHER, SELFPAY ==
[2019-05-07 09:06] VITALS: BMI 26.2
--- NOTE | 2019-09-10 12:37 | ADUL_ITS ---
Reason For Study: PVD Left Velocities Ext Iliac Artery, dist = 237.2 cm./sec. Common Femoral Artery, mid = 249.4 cm./sec. Supf. Femoral Artery, prox = 202.3 cm./sec. Supf. Femoral Artery, mid = 316.0 cm./sec. Supf. Femoral Artery, dist = 130.8 cm./sec. Mobile plaque noted mid SFA. Profunda Femoral Artery = 233.7 cm./sec. Popliteal Artery, proximal, = 70.5 cm./sec. POP A prox stent 118.0 cm/s. POP A mid stent 108.7 cm/s. POP A dist stent 105.1 cm/s. Popliteal Artery, distal = 134.3 cm./sec. Post. Tibial Artery, prox = 29.8 cm./sec. Post Tibial Artery, mid = 30.8 cm./sec. Post Tibial Artery, dist. = 21.3 cm./sec. Peroneal Artery, prox = 78.0 cm./sec. Peroneal Artery, mid = 121.7 cm./sec. Peroneal Artery,dist. = 103.3 cm./sec. Ant.Tibial Artery, prox = 84.3 cm./sec. Ant Tibial Artery, mid = 80.6 cm./sec. Ant. Tibial Artery, distal = 95.3 cm./sec. Procedure The exam was diagnostic. Exam performed in department. Interpretation Summary Calcific irregular plague left external iliac and common femoral arteries with moderate disease on imaging 21-49% stenosis left mid superficial femoral artery--possibly higher degree of stenosis as the more proximal segment is also diseased. Small mobile plague left mid superficial femoral artery Irregular plague left mid popliteal artery with patent stent. Blunted flow left posterior tibial artery Patent with diffuse plague left peroneal and anterior tibial arteries Ordering Physician: Raymond Amanda Performed By: Sam Almeida RVT
--- NOTE | 2019-09-10 12:37 | ART_ITS ---
Reason For Study: claudication Procedure A bilateral lower extremity continuous wave Doppler with analog waveform analysis,segmental pressures,and ankle brachial indexes without exercise. Left Segmental Pressures Left brachial= 132mmHg. Left posterior tibial artery = 144mmHg. Left dorsalis pedis artery = 136mmHg. Left digit = 100 mmHg. The left dorsalis pedis waveforms are biphasic. The left posterior tibial artery waveforms are biphasic. Right Segmental Pressures Right brachial= 133mmHg. Right dorsalis pedis artery = 219mmHg. Right digit = 77 mmHg. The right dorsalis pedis waveforms are biphasic. The right posterior tibial artery waveforms are triphasic. FLUID PUMP OPERATOR is noncompressible. Indices The right ankle brachial index by the dorsalis pedis is 1.65. The right digital-brachial index is .58. FLUID PUMP OPERATOR is noncompressible. The left ankle brachial index by the dorsalis pedis is 1.02. The left ankle brachial index by the posterior tibial artery is 1.08. The left digital-brachial index is .75. Interpretation Summary Right DP LEIF 1.65 with noncompressible PT making non invasive interpretation inaccurate. Biphasic waveforms right lower extremity consistent with mild-moderate stenosis. Left DP LEIF 1.02 and PT LEIF 1.08 with biphasic waveforms consistent with mild to moderate stenosis. Abnormal right digital brachial index; normal on the left Ordering Physician: Raymond Amanda Performed By: JAVI LUNA Bautista
== END ==
PROVIDERS: PCP Family Medicine; Referring Provider Surgery; Visit Provider Surgery
DX: I73.9 Peripheral vascular disease, unspecified (principal); I77.9 Disorder of arteries and arterioles, unspecified
CPT/HCPCS: 93923; 93926

== ENCOUNTER → 2019-11-30 08:34 | Outpatient (CLI) | payer MEDICARE, OTHER, SELFPAY ==
[2019-05-07 09:06] VITALS: BMI 26.2
--- NOTE | 2019-11-30 08:39 | CDU_ITS ---
Reason For Study: STENOSIS Rt. Velocities/BP Lt. Velocities/BP Prox CCA 52/8 cm/sec. Prox CCA 141/20 cm/sec. Mid CCA 128/17 cm/sec. Mid CCA 150/15 cm/sec. Dist CCA 147/19 cm/sec. Dist CCA 196/27 cm/sec. Prox ICA 131/28 cm/sec. Prox ICA 293/21 cm/sec. Mid ICA 215/34 cm/sec. Mid ICA 148/36 cm/sec. Dist ICA 76/21 cm/sec. Dist ICA 106/27 cm/sec. Rt. ICA/CCA = 1.7. Lt. ICA/CCA = 2.0. Prox ECA 343/7 cm/sec. Prox ECA 271/13 cm/sec. Rt. Vert. 58/11 cm/sec. Lt. Vert. 46/16 cm/sec. Right Extracranial There is heterogeneous, irregular atherosclerotic plaque noted in the right common carotid artery. There is heterogeneous, irregular atherosclerotic plaque noted in the right internal carotid artery. There is heterogeneous, irregular atherosclerotic plaque noted in the right external carotid artery. Antegrade flow is noted in the right vertebral artery. There is heterogeneous, irregular atherosclerotic plaque noted in the right bulb. Left Extracranial There is heterogeneous, irregular atherosclerotic plaque noted in the left common carotid artery. There is heterogeneous, irregular atherosclerotic plaque noted in the left internal carotid artery. There is heterogeneous, irregular atherosclerotic plaque noted in the left external carotid artery. Antegrade flow is noted in the left vertebral artery. There is heterogeneous, irregular atherosclerotic plaque noted in the left bulb. Procedure Carotid Duplex [id number]. Exam performed in department. Interpretation Summary Irregular calcific plaque right common carotid and proximal internal and external carotid arteries 50-69% stenosis right internal carotid, closer to the upper limits of this range >50% stenosis right external carotid Irregular calcific plaque left common carotid and left proximal internal and external carotid arteries >70% stenosis left internal carotid >50% stenosis left external carotid Patent, antegrade vertebrals bilaterally Findings suggest possible slight progression left internal carotid stenosis from 03/27/19 Ordering Physician: Raymond Amanda Referring Physician: DAVI MCCANN Performed By: Mckayla Aranda, SERENA, RVT
== END ==
PROVIDERS: PCP Family Medicine; Referring Provider Surgery; Visit Provider Surgery
DX: I65.23 Occlusion and stenosis of bilateral carotid arteries (principal)
CPT/HCPCS: 93880

== ENCOUNTER → 2020-03-09 09:45 | Outpatient (CLI) | payer MEDICARE, OTHER, SELFPAY ==
[2019-12-07 14:45] VITALS: BMI 25.8
[2020-03-09 13:45] LABS: Anion Gap 7 (5-15); BUN 23 mg/dL (7-18); BUN/Creat Ratio 14.1 RATIO (10-20); Calcium,Total 8.8 mg/dL (8.5-10.1); Chloride 106 mmol/L (98-107); Creatinine, Serum 1.63 mg/dL (0.70-1.30); EST Glomerular Filtration Rate 43 mL/min (>60); Est Glom Filt Rate - Afr Amer 52 mL/min (>60); Glucose 145 mg/dL (74-106); High Density Lipoprotein 39 mg/dL; Sodium Level 138 mmol/L (136-145); Triglycerides 103 mg/dL; Very Low Density Lipoprotein 21 mg/dL (5-40)
== END ==
PROVIDERS: PCP Family Medicine; Referring Provider Family Medicine; Visit Provider Family Medicine
DX: E11.9 Type 2 diabetes mellitus without complications (principal)
CPT/HCPCS: 36415; 80048; 80061

== ENCOUNTER → 2020-09-07 11:05 | Outpatient (CLI) | payer MEDICARE, OTHER, SELFPAY ==
[2019-12-07 14:45] VITALS: BMI 25.8
[2020-09-07 15:52] LABS: Anion Gap 5 (5-15); BUN 28 mg/dL (7-18); BUN/Creat Ratio 20.3 RATIO (10-20); Calcium,Total 8.3 mg/dL (8.5-10.1); Chloride 111 mmol/L (98-107); Cholesterol 101 mg/dL (200); Creatinine, Serum 1.38 mg/dL (0.70-1.30); EST Glomerular Filtration Rate 52 mL/min (>60); Est Glom Filt Rate - Afr Amer 63 mL/min (>60); Glucose 144 mg/dL (74-106); High Density Lipoprotein 41 mg/dL; Potassium 4.4 mmol/L (3.5-5.1); Sodium Level 140 mmol/L (136-145); Triglycerides 60 mg/dL; Very Low Density Lipoprotein 12 mg/dL (5-40)
== END ==
PROVIDERS: PCP Family Medicine; Referring Provider Family Medicine; Visit Provider Family Medicine
DX: E11.9 Type 2 diabetes mellitus without complications (principal)
CPT/HCPCS: 36415; 80048; 80061

== ENCOUNTER → 2021-01-10 12:34 | Outpatient (CLI) | payer MEDICARE, OTHER, SELFPAY ==
[2019-12-07 14:45] VITALS: BMI 25.8
--- NOTE | 2021-01-10 12:37 | CDU_ITS ---
Reason For Study: Carotid stenosis Rt. Velocities/BP Lt. Velocities/BP Prox CCA 93/5.6 cm/sec. Prox CCA 113.8/9.7 cm/sec. Mid CCA 195/11.1 cm/sec. Mid CCA 202.5/16 cm/sec. Dist CCA 198.1/13.9 cm/sec. Dist CCA 180.6/16 cm/sec. Prox ICA 156.2/16.3 cm/sec. Prox ICA 307.1/24.7 cm/sec. Mid ICA 224/26.8 cm/sec. Mid ICA 151/26.7 cm/sec. Dist ICA 158.7/22.6 cm/sec. Dist ICA 143.2/21.5 cm/sec. Rt. ICA/CCA = 1.15. Lt. ICA/CCA = 1.70. Prox ECA 330.7 cm/sec. Prox ECA 295.4 cm/sec. Rt. Vert. 61.9/9.1 cm/sec. Lt. Vert. 43.7/10.7 cm/sec. Right Extracranial There is heterogeneous, irregular atherosclerotic plaque noted in the right common carotid artery. There is heterogeneous, irregular atherosclerotic plaque noted in the right internal carotid artery. The atherosclerotic plaque causes acoustic shadowing. There is heterogeneous, irregular atherosclerotic plaque noted in the right external carotid artery. Antegrade flow is noted in the right vertebral artery. Left Extracranial There is heterogeneous, irregular atherosclerotic plaque noted in the left common carotid artery. There is heterogeneous, irregular atherosclerotic plaque noted in the left internal carotid artery. The atherosclerotic plaque causes acoustic shadowing. There is heterogeneous, irregular atherosclerotic plaque noted in the left external carotid artery. Antegrade flow is noted in the left vertebral artery. Procedure Carotid Duplex 55511. This is a Carotid Duplex examination using B-mode, color flow and specral Doppler. Exam performed in department. VL/Carotid Duplex Ultrasound Interpretation Summary Irregular calcific plaque involving the right common carotid and proximal inter nal and external carotid arteries 50 to 69% stenosis right mid internal carotid artery likely closer to the upper limits of that range. Greater than 50% stenosis right external carotid artery Irregular calcific plaque involving the left common carotid and proximal network intern al and external carotid arteries Greater than 70% stenosis left internal carotid artery Greater than 50% stenosis left external carotid artery Patent and antegrade vertebral arteries bilaterally Findings appears similar to the previous examination of November 30, 2019 Ordering Physician: Raymond Amanda Referring Physician: Bert Nix Performed By: Yoanna Gonsalez RVT
--- NOTE | 2021-01-10 12:37 | ADUL_ITS ---
Reason For Study: PAOD Left Velocities Ext Iliac Artery, dist = 219 cm./sec. Common Femoral Artery, mid = 229.8 cm./sec. Supf. Femoral Artery, prox = 169.9 cm./sec. Supf. Femoral Artery, mid = 313 cm./sec. Supf. Femoral Artery, dist = 81.8 cm./sec. Small mobile plaque noted mid SFA. Profunda Femoral Artery = 331.7 cm./sec. Popliteal Artery, proximal, = 139.9 cm./sec. POP A prox stent 68.7 cm/s. POP A mid stent 72.3 cm/s. POP A dist stent 70.5 cm/s. Popliteal Artery, distal = 118 cm./sec. Post. Tibial Artery, prox = 47.8 cm./sec. Post Tibial Artery, mid = 38.1 cm./sec. Post Tibial Artery, dist. = 49.7 cm./sec. Peroneal Artery, prox = 78 cm./sec. Peroneal Artery, mid = 62.9 cm./sec. Peroneal Artery,dist. = 96.5 cm./sec. Ant.Tibial Artery, prox = 77.6 cm./sec. Ant Tibial Artery, mid = 112.5 cm./sec. Ant. Tibial Artery, distal = 97.9 cm./sec. /US Art Duplex Unilat Lower Ext Interpretation Summary Irregular calcific plaque left external iliac and common femoral arteries with 0 to 19% stenosis 20 to 49% stenosis left profundofemoral artery 20 to 49% stenosis left superficial femoral artery Persistent small mobile plaque noted in the left mid superficial femoral artery 20 to 49% stenosis left popliteal artery with patent stent 20 to 49% stenosis left posterior tibial artery 0 to 19% stenosis left peroneal and anterior tibial arteries Ordering Physician: Raymond Amanda Referring Physician: Bert Nix Performed By: Yoanna Gonsalez RVT and Student
--- NOTE | 2021-01-10 12:37 | ART_ITS ---
Reason For Study: PVD Procedure A bilateral lower extremity continuous wave Doppler with analog waveform analysis,segmental pressures,and ankle brachial indexes with exercise. Left Segmental Pressures Left brachial= 191mmHg. Left posterior tibial artery = 200mmHg. Left dorsalis pedis artery = 187mmHg. Left digit = 115 mmHg. The left dorsalis pedis waveforms are triphasic. The left posterior tibial artery waveforms are triphasic. Right Segmental Pressures Right brachial= 193mmHg. Right posterior tibial artery = >254mmHg. Right dorsalis pedis artery = >254mmHg. Right digit = 107 mmHg. The right dorsalis pedis waveforms are triphasic. The right posterior tibial artery waveforms are triphasic. Indices The right ankle brachial index by the dorsalis pedis is NC. The right ankle brachial index by the posterior tibial artery is NC. The right digital-brachial index is 107. The left ankle brachial index by the dorsalis pedis is 0.97. The left ankle brachial index by the posterior tibial artery is 1.04. The left digital-brachial index is 115. The left post exercise ankle brachial index is 0.93. VL/Lower Ext Art Exam w/ Exercise Interpretation Summary Right lower extremity ankle-brachial indices cannot be calculated due to artifi cially elevated systolic pressures. Right posterior tibial and dorsalis pedis Doppler waveforms are triphasic which would be normal. Right digital brachial indices of 0.55 is abnormal Left lower extremity ankle-brachial index of 1.04 and 0.97 respectively are nor mal. The left posterior tibial and dorsalis pedis Doppler waveforms are both triphas ic which is normal The left digital brachial index is abnormal at 0.6 The left ankle-brachial index at rest is 1.04 and immediately after exercise at 0.93 which is abnormal however there is recovery by 3 minutes. Ordering Physician: Raymond Amanda Referring Physician: Bert Nix Performed By: Yoanna Gonsalez RVT and Student
== END ==
PROVIDERS: PCP Family Medicine; Referring Provider Surgery; Visit Provider Surgery
DX: I65.23 Occlusion and stenosis of bilateral carotid arteries (principal); I73.9 Peripheral vascular disease, unspecified
CPT/HCPCS: 93880; 93924; 93926

== ENCOUNTER → 2021-01-17 12:09 | Outpatient (CLI) | payer MEDICARE, OTHER, SELFPAY ==
[2019-12-07 14:45] VITALS: BMI 25.8
--- NOTE | 2021-01-17 12:13 | RAD_ITS ---
HISTORY: CONSTIPATION EXAMINATION/TECHNIQUE: XR Abdomen W/ Decub and/or Erect Views: 4 image upright and supine abdominal radiograph COMPARISON: None FINDINGS: LINES AND TUBES: 2 lead cardiac pacer partially seen. Multiple pelvic surgical clips. BOWEL GAS PATTERN: No gross small bowel distention. Moderate descending and rectosigmoid colonic stool with prominent air-filled proximal colon. Small proximal colonic air-fluid levels are present. FREE AIR: None visualized. ORGANOMEGALY: Not seen. CALCIFICATIONS: No abnormal calcifications observed. LOWER CHEST: No acute pathology. BONES AND SOFT TISSUES: No acute pathology. Moderate lumbar spondylosis. RAD/Abd Inc Decub and/or Erect IMPRESSION: 1. Moderate distal colonic stool burden with prominent proximal colonic gas. at 0943 Reported and signed by: Paolo Reilly MD Electronically Signed: Paolo Reilly MD at 9:41 EDT Tel , Service support ,
== END ==
PROVIDERS: PCP Family Medicine; Referring Provider Family Medicine; Visit Provider Family Medicine
DX: K59.00 Constipation, unspecified (principal)
CPT/HCPCS: 74019

== ENCOUNTER → 2021-01-23 16:23 | Outpatient (CLI) | payer MEDICARE, OTHER, SELFPAY ==
[2019-12-07 14:45] VITALS: BMI 25.8
[2021-01-23 18:09] LABS: Anion Gap 6 (5-15); BUN 22 mg/dL (7-18); BUN/Creat Ratio 14.8 RATIO (10-20); Chloride 109 mmol/L (98-107); Creatinine, Serum 1.49 mg/dL (0.70-1.30); EST Glomerular Filtration Rate 48 mL/min (>60); Est Glom Filt Rate - Afr Amer 58 mL/min (>60); Glucose 100 mg/dL (74-106); Potassium 4.3 mmol/L (3.5-5.1); Sodium Level 139 mmol/L (136-145)
== END ==
PROVIDERS: PCP Family Medicine; Referring Provider Family Medicine; Visit Provider Family Medicine
DX: E11.9 Type 2 diabetes mellitus without complications (principal)
CPT/HCPCS: 36415; 80048

== ENCOUNTER 2021-04-13 06:48 | Emergency (ER) | payer MEDICARE, OTHER, SELFPAY ==
[2021-04-13 06:48] VITALS: BP 169/49; PULSE 76; RESP 16; TEMP 36.4; O2SAT 96; BMI 25.7
--- NOTE | 2021-04-13 07:43 | RAD_ITS ---
STUDY: X-RAY - ABDOMEN/PELVIS REASON FOR EXAM: Male, 85 years old. constipation TECHNIQUE: Single AP view of the abdomen / pelvis. COMPARISON: None. FINDINGS: Normal visualized lung bases. There is an unremarkable bowel gas pattern. The visualized liver, spleen and kidneys are grossly normal in size and morphology. Normal soft tissue structures. Normal visualized osseous structures. RAD/Abdomen Single View IMPRESSION: Normal x-ray examination of the abdomen and pelvis. Electronically Signed: Javed Hobbs MD at 8:24 EDT Tel , Service support ,
--- NOTE | 2021-04-13 07:44 | EDS_ITS ---
HPI History of Present Illness Chief Complaint: Constipation Informant: patient Narrative Narrative: 85-year-old male presenting to the emergency room with recurrent constipation. Patient states his last bowel movement was 3 days ago. He states he is having little flatus but that he is hearing noises from his abdomen. No vomiting and he has been able to eat and drink. He states that he had a colonoscopy in 2018 that showed a large polyp but did not have repeat colonoscopy. He reports he has tried various medications in the past including magnesium citrate MiraLAX etc. In the past 3 days he has taken Dulcolax. He states that he does not take a daily medication for stool softener. [facility] Medical History A-fib CAD (coronary artery disease) Carotid stenosis, bilateral Diabetes HTN (hypertension) PAD (peripheral artery disease) Peripheral arterial occlusive disease Home Medications fluticasone propionate 2 spray NASAL DAILY #1 bottle 09/01/18 [Rx Last Taken Unknown] amlodipine 10 mg tablet 10 mg PO DAILY 03/19/19 [History Last Taken 05/06/19] atorvastatin 20 mg tablet 20 mg PO DAILY 03/19/19 [History Last Taken Unknown] clonidine HCl 0.3 mg tablet 0.2 mg PO BID 03/19/19 [History Last Taken 05/06/19] dofetilide 500 mcg capsule 500 mcg PO Q12H 03/19/19 [History Last Taken Unknown] hydralazine 50 mg tablet 50 mg PO TID 03/19/19 [History Last Taken 05/06/19] isosorbide mononitrate 60 mg tablet,extended release 24 hr 90 mg PO DAILY 03/19/19 [History Last Taken Unknown] losartan 50 mg tablet 100 mg PO DAILY 03/19/19 [History Last Taken 05/06/19] metformin 500 mg tablet 500 mg PO DAILY tab 03/19/19 [History Last Taken 05/05/19] multivitamin 1 tab PO DAILY 03/19/19 [History Last Taken Unknown] nitroglycerin 0.4 mg sublingual tablet 0.4 mg SUBLINGUAL Q5-15M 03/19/19 [History Last Taken Unknown] rivaroxaban 20 mg tablet 15 mg PO DAILY 03/19/19 [History Last Taken 05/05/19] vit C 250 mg-vit E 90 mg-zinc 40 mg-copper 1 [id number] capsule 1 tab PO BID 03/19/19 [History Last Taken Unknown] Allergy/AdvReac Type Severity Reaction Status Date / Time ofloxacin [From Floxin] AdvReac Nausea Verified 04/13/21 06:50 Surgical History History of coronary artery stent placement S/P prostatectomy Status cardiac pacemaker Social History Smoking Status: Never smoker alcohol intake: current alcohol intake frequency: a few times a month ROS ROS ED Constitutional Constitutional ED: Denies chills or weight loss Eyes Eyes: Denies change in vision or diplopia ENT ENT ED: Denies ear pain, rhinorrhea or sore throat Cardiovascular Cardiovascular: Denies chest pain, orthopnea, palpitations or racing heartbeat Respiratory/Chest Respiratory/Chest: Denies cough, dyspnea or orthopnea Gastrointestinal Gastrointestinal: Reports constipation; Denies abdominal pain, diarrhea, nausea or vomiting Genitourinary Genitourinary ED: Denies dysuria, hematuria or urinary frequency Musculoskeletal Musculoskeletal: Denies arthralgias or myalgias Integumentary Denies abscess or rash Neurologic Neurologic: Denies headache(s) or weakness Psychiatric Psychiatric: Denies anxiety, depression, suicidal ideation or suicidal thoughts Endocrine Endocrinology: Denies polydipsia, polyphagia or polyuria Allergic/Immunologic Allergic/Immunologic ED: Denies mouth swelling, tongue swelling or urticaria EXAM Physical Exam Const Vital Signs: 04/13/21 06:48 Temperature 97.6 F L Temperature Source Temporal Pulse Rate 76 Respiratory Rate 16 Blood Pressure 169/49 H Blood Pressure Mean 89 Pulse Ox 96 Oxygen Delivery Method Room Air Positive well nourished and well developed General Appearance ED: well developed HEENT Reports normocephalic, head/scalp atraumatic, TM's clear and moist mucous membranes Negative for trauma Tympanic Membrane ED: Yes TM's clear Eyes PERRL and EOMs intact bilaterally Neck no lymphadenopathy, supple and no JVD Resp normal respiratory effort and clear to auscultation bilaterally Cardio regular rate, regular rhythm and no murmurs GI normal to inspection, nondistended, normoactive bowel sounds and non-tender Palpation: soft Back/Spine no CVA tenderness and normal ROM Extremity normal to inspection General Extremety ED: Negative for edema General Extremity: Negative for edema Neuro oriented x3 and CN's II-XII intact bilaterally Sensorium / Orientation: alert Motor Exam: strength 5/5 throughout Psych mental status grossly normal Mood & Affect: Negative for depressed or tearful Skin no rashes or lesions noted and no wounds MDM MDM MDM Narrative Medical decision making narrative: My interpretation of the plain films of the abdomen is no acute process. Patient does not appear to have a significant stool burden. Patient will use some magnesium citrate and daily Colace. He has a follow-up appointment next week with gastroenterology. Radiography Diagnostic Testing: Clinical Impression(s) from Imaging Studies KUB X-Ray 04/13/21 07:43 IMPRESSION: Normal x-ray examination of the abdomen and pelvis. Electronically Signed: Javed Hobbs MD at 8:24 EDT Tel , Service support , Discharge Plan Triage Chief Complaint: Constipation ED Provider: Cedric Lewis Dx/Rx/DC Orders Clinical Impression: Constipation Instructions: ED Constipation (Adult) Prescriptions: No Action metformin 500 mg tablet 500 mg PO DAILY RF: 0 clonidine HCl 0.3 mg tablet 0.2 mg PO BID RF: 0 losartan [Cozaar] 50 mg tablet 100 mg PO DAILY RF: 0 PreserVision AREDS-2 [id number] xd-[id number]-tx-mg capsule 1 tab PO BID RF: 0 dofetilide 500 mcg capsule 500 mcg PO Q12H RF: 0 atorvastatin [Lipitor] 20 mg tablet 20 mg PO DAILY RF: 0 amlodipine 10 mg tablet 10 mg PO DAILY RF: 0 isosorbide mononitrate 60 mg tablet extended release 24 hr 90 mg PO DAILY RF: 0 Xarelto 20 mg tablet 15 mg PO DAILY RF: 0 multivitamin Tablet 1 tab PO DAILY RF: 0 hydralazine 50 mg tablet 50 mg PO TID RF: 0 nitroglycerin [Nitrostat] 0.4 mg tablet, sublingual 0.4 mg SUBLINGUAL Q5-15M RF: 0 fluticasone propionate 1 SPRAY spray,suspension 2 spray NASAL DAILY Qty: 1 RF: 0 Primary Care Provider: Bert Nix Referrals: Bert Nix MD [Primary Care Provider] -
[2021-04-13 09:22] VITALS: BP 150/57; PULSE 60; RESP 18; O2SAT 95
== END 2021-04-13 09:22 | disposition home or self-care (01) ==
PROVIDERS: Emergency Provider Emergency Medicine; PCP Family Medicine
DX: K59.00 Constipation, unspecified (principal); I25.10 Atherosclerotic heart disease of native coronary artery without angina pectoris; I48.91 Unspecified atrial fibrillation; I65.23 Occlusion and stenosis of bilateral carotid arteries; I10 Essential (primary) hypertension; E11.51 Type 2 diabetes mellitus with diabetic peripheral angiopathy without gangrene; Z79.01 Long term (current) use of anticoagulants; Z79.84 Long term (current) use of oral hypoglycemic drugs; Z79.899 Other long term (current) drug therapy
CPT/HCPCS: 74018; 99282

== ENCOUNTER → 2021-04-18 09:29 | Outpatient (CLI) | payer MEDICARE, OTHER, SELFPAY ==
[2021-04-18 12:39] LABS: BUN 26 mg/dL (7-18); Creatinine, Serum 1.45 mg/dL (0.70-1.30); EST Glomerular Filtration Rate 49 mL/min (>60); Est Glom Filt Rate - Afr Amer 60 mL/min (>60)
== END ==
PROVIDERS: PCP Family Medicine
DX: I70.213 Atherosclerosis of native arteries of extremities with intermittent claudication, bilateral legs (principal); I10 Essential (primary) hypertension; E78.00 Pure hypercholesterolemia, unspecified; Z87.891 Personal history of nicotine dependence
CPT/HCPCS: 36415; 82565; 84520

== ENCOUNTER 2021-08-10 15:31 | Outpatient (CLI) | payer MEDICARE, OTHER, SELFPAY ==
[2021-08-10 18:41] LABS: ALB/GLOB Ratio 0.8 RATIO (0.9-2.4); AST(SGOT) 20 U/L (15-37); Alanine Aminotransfer ALT/SGPT 29 U/L (16-61); Albumin, Serum 3.3 g/dL (3.2-5.0); Alkaline Phosphatase 82 U/L (45-117); Anion Gap 6 (5-15); BUN 25 mg/dL (7-18); BUN/Creat Ratio 19.8 RATIO (10-20); Chloride 113 mmol/L (98-107); Cholesterol 111 mg/dL (200); Creatinine, Serum 1.26 mg/dL (0.70-1.30); EST Glomerular Filtration Rate 58 mL/min (>60); Est Glom Filt Rate - Afr Amer 70 mL/min (>60); Globulin 4.3 g/dL (2.2-4.2); Glucose 109 mg/dL (74-106); High Density Lipoprotein 53 mg/dL; Potassium 4.4 mmol/L (3.5-5.1); Protein, Total 7.6 g/dL (6.4-8.2); Sodium Level 139 mmol/L (136-145); Triglycerides 142 mg/dL; Very Low Density Lipoprotein 28 mg/dL (5-40)
== END 2021-08-10 23:59 | disposition home or self-care (01) ==
LOC: MFPLAB 15:34
PROVIDERS: PCP Family Medicine; Referring Provider Family Medicine; Visit Provider Family Medicine
DX: E11.9 Type 2 diabetes mellitus without complications (principal)
CPT/HCPCS: 36415; 80053; 80061

== ENCOUNTER → 2021-11-22 | Outpatient (CLI) | payer MEDICARE, OTHER, SELFPAY ==
--- NOTE | 2021-11-22 12:51 | ECHOD_ITS ---
Reason For Study: SOB Procedure This was a 2D Doppler, Color Flow transthoracic echocardiogram. Exam performed in department. Left Ventricle Normal LV size. Left ventricular systolic function is normal. The estimated ejection fraction is 65 %. Stage 2 diastolic dysfunction. No regional wall motion abnormalities noted. Right Ventricle Normal RV size. ICD or pacer leads identified within the right ventricle. Normal systolic function. Atria The left atrium is moderately enlarged. ICD or pacer leads identified within the right atrium. Normal right atrium. Mitral Valve There is moderate mitral annular calcification. Trivial eccentric mitral valve insufficiency. Tricuspid Valve Normal tricuspid valve. Mild to moderate (1-2+) tricuspid valve insufficiency. Pulmonary artery systolic pressure is 48 mmHg. Aortic Valve Trisinus/trileaflet aortic valve. Mild focal aortic valve thickening. Mild (1+) eccentric aortic valve insufficiency. Pulmonic Valve Normal pulmonic valve. Great Vessels Normal aortic root. The pulmonary artery is normal size. Normal inferior vena cava. Pericardium/Pleural No pericardial effusion. MMode/2D Measurements & Calculations LVIDd: 5.3 cm IVSd: 1.4 cm Ao root diam: 2.5 cm LVIDs: 2.4 cm LVPWd: 1.1 cm FS: 55.9 % LAV(MOD-sp4): 97.2 ml LVAd ap4: 31.8 cm2 SV(MOD-sp4): 64.0 ml LVLd ap4: 9.2 cm EDV(MOD-sp4): 93.5 ml EDV(sp4-el): 93.4 ml LVAs ap4: 14.7 cm2 LVLs ap4: 7.4 cm ESV(MOD-sp4): 29.5 ml ESV(sp4-el): 24.5 ml EF(MOD-sp4): 68.4 % EF(sp4-el): 73.7 % SV(sp4-el): 68.9 ml LA A4 area: 28.8 cm2 RA A4 area: 21.5 cm2 Doppler Measurements & Calculations MV E max simon: 129.1 cm/sec Lat Peak E' Simon: 9.2 cm/sec Med Peak E' Simon: 7.4 cm/sec MV A max simon: 69.9 cm/sec E/E' lat: 14.0 E/E' med: 17.4 MV E/A: 1.8 Ao V2 max: 134.6 cm/sec AI max simon: 359.5 cm/sec LV V1 max: 133.7 cm/sec Ao max P.2 mmHg AI max P.1 mmHg LV V1 max P.2 mmHg AI dec slope: 231.3 cm/sec2 AI P1/2t: 455.3 msec PA V2 max: 124.6 cm/sec TR max simon: 334.4 cm/sec TR max P.7 mmHg ECHO/Echo Complete Interpretation Summary Normal LV size. Left ventricular systolic function is normal. The estimated ejection fraction is 65 %. The left atrium is moderately enlarged. Stage 2 diastolic dysfunction. Mild (1+) eccentric aortic valve insufficiency. Pulmonary artery systolic pressure is 48 mmHg. Ordering Physician: Sally Escobedo Referring Physician: Bert Nix Performed By: Gertrude Navarro RCS
== END | disposition home or self-care (01) ==
LOC: CVS 12:49
PROVIDERS: PCP Family Medicine; Visit Provider Nurse Practitioner Family
DX: R06.02 Shortness of breath (principal)
CPT/HCPCS: 93306

== ENCOUNTER → 2022-09-05 | Outpatient (CLI) | payer MEDICARE, OTHER, SELFPAY ==
--- NOTE | 2022-09-05 15:29 | RAD_ITS ---
STUDY: X-RAY - RIGHT KNEE REASON FOR EXAM: Male, 87 years old. Right knee pain. TECHNIQUE: 4 view(s) of the knee. COMPARISON: None. FINDINGS: Osteopenia. Moderate to marked medial compartmental arthrosis with osteophyte formation. Mild arthrosis of the lateral compartment. Mild arthrosis of the patellofemoral compartment. Joint effusion. Vascular calcification. RAD/Knee 4 or More Views IMPRESSION: Osteopenia with tricompartmental arthrosis, most marked medially. No acute abnormality, evidence of erosive changes/fusion. Electronically Signed: Luc Jacobson, at 11:15 EDT ,
[2022-09-05 18:59] LABS: Microalbumin,Random Urine 49.1 mg/L (NO RANGE EST.); Microalbumin:Creatinine Ratio 39.3 mg/g CRE (<30 mg/g CRE)
[2022-09-05 19:51] LABS: ALB/GLOB Ratio 0.8 RATIO (0.9-2.4); AST(SGOT) 21 U/L (15-37); Alanine Aminotransfer ALT/SGPT 30 U/L (16-61); Albumin, Serum 3.5 g/dL (3.2-5.0); Alkaline Phosphatase 79 U/L (45-117); Anion Gap 8 (5-15); BUN 35 mg/dL (7-18); BUN/Creat Ratio 23.5 RATIO (10-20); Calcium,Total 8.3 mg/dL (8.5-10.1); Chloride 110 mmol/L (98-107); Cholesterol 115 mg/dL (200); Creatinine, Serum 1.49 mg/dL (0.70-1.30); EST Glomerular Filtration Rate 48 mL/min (>60); Est Glom Filt Rate - Afr Amer 58 mL/min (>60); Globulin 4.3 g/dL (2.2-4.2); Glucose 112 mg/dL (74-106); High Density Lipoprotein 53 mg/dL; Potassium 3.9 mmol/L (3.5-5.1); Protein, Total 7.8 g/dL (6.4-8.2); Sodium Level 139 mmol/L (136-145); Triglycerides 65 mg/dL; Very Low Density Lipoprotein 13 mg/dL (5-40)
== END | disposition home or self-care (01) ==
LOC: MTLAB 15:27
PROVIDERS: PCP Family Medicine; Referring Provider Family Medicine; Visit Provider Family Medicine
DX: M25.561 Pain in right knee (principal); E11.9 Type 2 diabetes mellitus without complications
CPT/HCPCS: 36415; 73564; 80053; 80061; 82043; 82570

== ENCOUNTER → 2023-03-08 | Outpatient (CLI) | payer MEDICARE, OTHER, SELFPAY ==
[2023-03-08 16:36] LABS: Anion Gap 7 (5-15); BUN 29 mg/dL (7-18); BUN/Creat Ratio 20.7 RATIO (10-20); Chloride 109 mmol/L (98-107); Cholesterol 129 mg/dL (200); EST Glomerular Filtration Rate 51 mL/min (>60); Est Glom Filt Rate - Afr Amer 62 mL/min (>60); Glucose 126 mg/dL (74-106); High Density Lipoprotein 62 mg/dL; Potassium 3.6 mmol/L (3.5-5.1); Sodium Level 140 mmol/L (136-145); Triglycerides 122 mg/dL; Very Low Density Lipoprotein 24 mg/dL (5-40)
== END | disposition home or self-care (01) ==
LOC: MTLAB 13:53
PROVIDERS: PCP Family Medicine; Referring Provider Family Medicine; Visit Provider Family Medicine
DX: E11.9 Type 2 diabetes mellitus without complications (principal)
CPT/HCPCS: 36415; 80048; 80061

== ENCOUNTER → 2023-09-05 | Outpatient (CLI) | payer MEDICARE, OTHER, SELFPAY ==
[2023-09-05 14:31] LABS: Microalbumin:Creatinine Ratio 111.3 mg/g CRE (<30 mg/g CRE)
[2023-09-05 15:04] LABS: Anion Gap 7 (5-15); BUN 21 mg/dL (7-18); BUN/Creat Ratio 15.7 RATIO (10-20); Calcium,Total 8.4 mg/dL (8.5-10.1); Chloride 109 mmol/L (98-107); Cholesterol 124 mg/dL (200); Creatinine, Serum 1.34 mg/dL (0.70-1.30); EST Glomerular Filtration Rate 54 mL/min (>60); Est Glom Filt Rate - Afr Amer 65 mL/min (>60); Glucose 158 mg/dL (74-106); High Density Lipoprotein 57 mg/dL; Potassium 3.6 mmol/L (3.5-5.1); Sodium Level 140 mmol/L (136-145); Triglycerides 133 mg/dL; Very Low Density Lipoprotein 27 mg/dL (5-40)
--- OUTSIDE RECORDS SUMMARY | 2023-09-05 18:27 | XMS RPT_ITS | CCD ---
Author Name Unknown Address [address] [place] [address] Organization [facility] Care Team Providers Care Metal Lather Name Role Phone Bert Mccann MD Primary Care Provider MARIOLA CUADRA Referring Unavailable MCCANN, BERT Patterson Primary Care Unavailable GRACIELA ESCOBEDO Referring Unavailable MCCANN, BERT Patterson Primary Care Unavailable GRACIELA ESCOBEDO Attending Unavailable GRACILEA ESCOBEDO Referring Unavailable MCCANN, BERT Patterson Primary Care Unavailable Bert Mccann MD Primary Care Provider Ramy KUMAR, Bert Patterson Primary Care Provider RAMY, BERT Patterson Primary Care Unavailable SURMITOMER GALLAGHER Attending Unavail able MCCANN, BERT Patterson Primary Care Unavailable MCCANN, BERT Patterson Primary Care Unavailable GRACIELA ESCOBEDO Attending Unavailable RAMY, BERT Patterson Primary Care Unavailable DARCIMITOMER GALLAGHER Attending Unavail able MCCANN, BERT Patterson Primary Care Unavailable MCCANN, BERT Patterson Primary Care Unavailable GRACIELA ESCOBEDO Referring Unavailable MCCANN, BERT Patterson Primary Care Unavailable GRACIELA ESCOBEDO Attending Unavailable GRACIELA ESCOBEDO Referring Unavailable MCCANN, BERT Patterson Primary Care Unavailable GRACIELA ESCOBEDO Referring Unavailable MCCANN, BERT Patterson Primary Care Unavailable Allergies Allergy Classification Reported Allergen(s) Allergy Type Date of Onset Reaction(s) Facility (5 sources) Cephalosporins (Antibiotic); Translations: [CEPHALOSPORINS] Propensity to adverse reactions to drug 01-14-20 18 Unknown [facility] Work Phone: (20 sources) Ofloxacin; Translations: [OFLOXACIN] Drug Allergy 12-12-19 05 Rash, GI Upset [facility] Work Phone: (20 sources) SMZ/TMP DS [Other] Propensity to adverse reactions 12-12-19 05 Rash [facility] Work Phone: (20 sources) Cephalosporins (Antibiotic) Propensity to adverse reactions to drug 01-14-20 18 Unknown [facility] Work Phone: (2 sources) OTHER; Translations: [OTHER] Propensity to adverse reactions (disorder) 12-12-19 05 [facility] Repository Medications Current Medications Medication Drug Class(es) Dates Sig (Normalized) Sig (Original) perflutren lipid microspheres 1.3 mL in NaCl (PF) 0.9% 10 mL injection (DEFINITY) (18 sources) Start: 10-23-2021 End: 01-22-2023 perflutren lipid microspheres 1.3 mL in NaCl (PF) 0.9% 10 mL injection (DEFINITY) rivaroxaban 15 mg oral tablet (20 sources) Factor Xa Inhibitor Start: 02-21-2023 End: 05-22-2023 take 1 tablet by mouth once daily at dinner rivaroxaban (XARELTO) 15 mg tablet Take 1 tablet by mouth daily with dinner. 30 tablet 3 02/21/2023 05/22/2023 Active Completed/Discontinued Medications Medication Drug Class(es) Dates Sig (Normalized) Sig (Original) amLODIPine 10 mg oral tablet (20 sources) Dihydropyridine Calcium Channel Socrates Start: 05-30-2022 End: 05-24-2023 take 1 tablet by mouth once daily amLODIPine (NORVASC) 10 mg tablet Take 1 tablet by mouth once daily. 90 tablet 3 05/24/2023 Active Problems Active Problems Problem Classification Problem Date Documented Date Episodic/Chronic Acute myocardial infarction (20 sources) Acute myocardial infarction of anterior wall; Translations: [ST elevation (STEMI) myocardial infarction involving other coronary artery of anterior wall] Onset: 05-22-2010 10-05-2019 Chronic Aortic; peripheral; and visceral artery aneurysms (20 sources) Aneurysm of thoracic aorta; Translations: [Thoracic aortic aneurysm, without rupture] Onset: 01-13-2018 01-12-2022 Chronic Cancer of prostate (20 sources) Malignant tumor of prostate; Translations: [Malignant neoplasm of prostate] Onset: 12-24-2003 12-24-2003 Chronic Cancer of prostate (20 sources) History of malignant neoplasm of prostate; Translations: [Personal history of malignant neoplasm of prostate] 10-05-2019 Episodic Cardiac dysrhythmias (20 sources) Paroxysmal atrial flutter; Translations: [Unspecified atrial flutter] Onset: 01-16-2018 10-05-2019 Chronic Conduction disorders (20 sources) Atrioventricular conduction disorder; Translations: [Other specified conduction disorders] Onset: 04-16-2016 10-05-2019 Chronic Coronary atherosclerosis and other heart disease (20 sources) Coronary arteriosclerosis; Translations: [Atherosclerotic heart disease of tejon coronary artery without angina pectoris] Onset: 01-13-2018 10-06-2019 Chronic Diabetes mellitus with complications (20 sources) Disorder due to type 2 diabetes mellitus; Translations: [Type 2 diabetes mellitus with unspecified complications] Onset: 01-13-2018 01-12-2022 Chronic Diabetes mellitus without complication (20 sources) Type 2 diabetes mellitus; Translations: [Type 2 diabetes mellitus without complications] 10-05-2019 Chronic Disorders of lipid metabolism (20 sources) Mixed hyperlipidemia; Translations: [Mixed hyperlipidemia] Onset: 01-13-2018 10-05-2019 Chronic Diverticulosis and diverticulitis (20 sources) Diverticulosis of colon; Translations: [Diverticulosis of large intestine without perforation or abscess without bleeding] Onset: 11-28-2005 11-28-2005 Chronic Essential hypertension (20 sources) Benign hypertension; Translations: [Essential (primary) hypertension] Onset: 10-05-2019 10-05-2019 Chronic Heart valve disorders (20 sources) Aortic valve regurgitation; Translations: [Nonrheumatic aortic (valve) insufficiency] Onset: 01-13-2018 01-12-2022 Chronic Hypertension with complications and secondary hypertension (7 sources) Benign hypertensive heart disease without congestive heart failure; Translations: [Hypertensive heart disease without heart failure] Onset: 01-13-2018 01-12-2022 Chronic Other aftercare (20 sources) Long-term current use of anticoagulant; Translations: [termite helper (current) use of anticoagulants] 10-05-2019 Episodic Other and ill-defined heart disease (20 sources) Left ventricular hypertrophy; Translations: [Cardiomegaly] 10-05-2019 Chronic Other circulatory disease (11 sources) Peripheral arterial occlusive disease; Translations: [Disorder of arteries and arterioles, unspecified] Chronic Other circulatory disease (1 source) Disorder of arteries and arterioles, unspecified; Translations: [Peripheral arterial occlusive disease (HCC)] Onset: 08-01-2022 Chronic Peripheral and visceral atherosclerosis (17 sources) Peripheral vascular disease, unspecified; Translations: [Peripheral vascular disease, unspecified] Onset: 04-14-2023 10-05-2019 Chronic Screening and history of mental health and substance abuse codes (20 sources) Tobacco use and exposure - finding; Translations: [Personal history of nicotine dependence] 10-05-2019 Episodic Unclassified (1 source) Thoracic aortic aneurysm without rupture, unspecified part (HCC); Translations: [Thoracic aortic aneurysm without rupture, unspecified part (HCC)] Onset: 01-12-2022 Past or Other Problems Problem Classification Problem Date Documented Da te Episodic/Chronic Coronary atherosclerosis and other heart disease (1 source) Presence of coronary angioplasty implant and graft; Translations: [H/O heart artery stent] Onset: 04-24-2022 Episodic Other aftercare (2 sources) termite helper (current) use of anticoagulants; Translations: [Current use of termite technician anticoagulation] Onset: 10-05-2019 Episodic Other and unspecified benign neoplasm (20 sources) Benign neoplasm of colon; Translations: [Benign neoplasm of colon, unspecified] Onset: 11-28-2005 11-28-2005 Episodic Other and unspecified benign neoplasm (20 sources) History of polyp of colon; Translations: [Personal history of colonic polyps] Onset: 11-28-2005 11-28-2005 Episodic Other circulatory disease (19 sources) Carotid bruit; Translations: [Other specified symptoms and signs involving the circulatory and respiratory systems] Onset: 07-17-2018 01-12-2022 Episodic Residual codes; unclassified (20 sources) Past history of procedure; Translations: [Personal history of other medical treatment] Onset: 10-22-2021 11-23-2021 Episodic Results Test Name Value Interpretation Reference Range Facil ity Vital Signs Date Time Vital Sign Value Performing Clinician Christos alvarez 02-21-2023 09:56-0400 Body height 175.3 cm Omer Durham MD Work Phone: [facility] 02-21-2023 09:56-0400 Body weight 82.37 kg Omer Durham MD Work Phone: [facility] 02-21-2023 09:56-0400 Diastolic blood pressure 56 mm[Hg] Omer Durham MD Work Phone: [facility] 02-21-2023 09:56-0400 Heart rate 60 /min Omer Durham MD Work Phone: [facility] 02-21-2023 09:56-0400 SaO2% (BldA) [Mass fraction] 96 % Omer Durham MD Work Phone: [facility] 02-21-2023 09:56-0400 Systolic blood pressure 133 mm[Hg] Omer Durham MD Work Phone: [facility] 08-01-2022 13:09-0500 Body height 175.3 cm Omer Durham MD Work Phone: [facility] 08-01-2022 13:09-0500 Body weight 82.37 kg Omer Durham MD Work Phone: [facility] 08-01-2022 13:09-0500 Diastolic blood pressure 55 mm[Hg] Omer Durham MD Work Phone: [facility] 08-01-2022 13:09-0500 Heart rate 60 /min Omer Durham MD Work Phone: [facility] 08-01-2022 13:09-0500 SaO2% (BldA) [Mass fraction] 97 % Omer Durham MD Work Phone: [facility] 08-01-2022 13:09-0500 Systolic blood pressure 154 mm[Hg] Omer Durham MD Work Phone: [facility] 05-03-2022 10:51-0500 Body height 175.3 cm Graciela Escobedo ART CRITIC.ASSOCIATE DIRECTOR OF DEVELOPMENT Work Phone: [facility] 05-03-2022 10:51-0500 Body weight 78.47 kg Graciela Escobedo ART CRITIC.ASSOCIATE DIRECTOR OF DEVELOPMENT Work Phone: [facility] 05-03-2022 10:51-0500 Diastolic blood pressure 62 mm[Hg] Graciela Escobedo ART CRITIC.ASSOCIATE DIRECTOR OF DEVELOPMENT Work Phone: [facility] 05-03-2022 10:51-0500 Heart rate 60 /min Graciela Escobedo ART CRITIC.ASSOCIATE DIRECTOR OF DEVELOPMENT Work Phone: [facility] 05-03-2022 10:51-0500 Systolic blood pressure 130 mm[Hg] Graciela Escobedo APRN.CNP Work Phone: [facility] 01-17-2022 13:09-0400 Body height 175.3 cm Omer Durham MD Work Phone: [facility] 01-17-2022 13:09-0400 Body weight 76.84 kg Omer Durham MD Work Phone: [facility] 01-17-2022 13:09-0400 Diastolic blood pressure 83 mm[Hg] Omer Durham MD Work Phone: [facility] 01-17-2022 13:09-0400 Heart rate 103 /min Omer Durham MD Work Phone: [facility] 01-17-2022 13:09-0400 SaO2% (BldA) [Mass fraction] 96 % Omer Durham MD Work Phone: [facility] 01-17-2022 13:09-0400 Systolic blood pressure 152 mm[Hg] Omer Durham MD Work Phone: [facility] 07-12-2021 10:21-0500 Body height 180.3 cm Omer Durham MD Work Phone: [facility] 07-12-2021 10:21-0500 Body weight 78.47 kg Omer Durham MD Work Phone: [facility] 07-12-2021 10:21-0500 Diastolic blood pressure 48 mm[Hg] Omer Durham MD Work Phone: [facility] 07-12-2021 10:21-0500 Heart rate 60 /min Omer Durham MD Work Phone: [facility] 07-12-2021 10:21-0500 SaO2% (BldA) [Mass fraction] 97 % Omer Durham MD Work Phone: [facility] 07-12-2021 10:21-0500 Systolic blood pressure 113 mm[Hg] Omer Durham MD Work Phone: [facility] Encounters Encounter Date Encounter Type Care Provider Facility Start: 05-29-2023 End: 05-29-2023 ambulatory GRACIELA Radha ESCOBEDO Facility:[id number] Start: 05-29-2023 End: 05-29-2023 Patient encounter procedure Device [facility] Procedures Date Procedure Procedure Detail Performing Clinician Start: 05-22-2010 History of placement of stent for coronary artery disease H/O heart artery stent Graciela Escobedo ART CRITIC.ASSOCIATE DIRECTOR OF DEVELOPMENT Work Phone: History of placement of stent for coronary artery disease Status post coronary artery stent placement Omer Durham MD Work Phone: History of placement of stent for coronary artery disease H/O heart artery stent Omer Durham MD Work Phone: Plan of Treatment Date Care Activity Detail Author Start: 06-10-2027 Urine microalbumin profile DTaP,Tdap,Td Vaccine (2 - Td or Tdap) [facility] Start: 02-22-2023 Covid-19 Vaccine ( season) Covid-19 Vaccine ( season) [facility] Start: 02-22-2023 Influenza vaccination C [facility] Start: 02-07-2023 Pneumococcal Vaccine : 65+ (2 - PCV) Pneumococcal Vaccine: 65+ (2 - PCV) [facility] Start: 06-24-2022 ADVANCE DIRECTIVE DISCUSSION ADVANCE DIRECTIVE DISCUSSION [facility] Start: 06-24-2022 DEPRESSION ASSESSMENT DEPRESSION ASS ESSMENT [facility] Start: 02-22-2022 Influenza vaccination INFLUENZA (#1) [facility] Start: 06-24-2021 ADVANCE DIRECTIVE DISCUSSION ADVANCE DIRECTIVE DISCUSSION [facility] Start: 06-24-2021 DEPRESSION ASSESSMENT DEPRESSION ASS ESSMENT [facility] Start: 2002 PNEUMOVAX AGE 65 AND OVER WITH 5YR LOOKBACK (#1) PNEUMOVAX AGE 65 AND OVER WITH 5YR LOOKBACK (#1) [facility] Start: 1997 Hepatitis B Vaccine (1 of 3 - Risk 3-dose series) Hepatitis B Vaccine (1 of 3 - Risk 3-dose series) [facility] Start: 1997 RSV Vaccine (1 - 1-d ose 60+ series) RSV Vaccine (1 - 1-dose 60+ series) [facility] Start: 08-28-1987 SHINGRIX VACCINE (1 of 2) SHINGRIX V ACCINE (1 of 2) [facility] Start: 1956 Urine microalbumin profile DTAP,TDAP,TD (1 - Tdap) [facility] Start: 08-28-1955 Hepatitis B surface antibody level LDL CHOLESTEROL [facility] Start: 08-28-1947 3 comp foot exam completed DIABETIC FOOT EXAM [facility] Start: 08-28-1947 Hepatitis B screening URINE AL BUMIN:CREATININE RATIO [facility] Start: 08-28-1947 Hepatitis C antibody , confirmatory test DILATED RETINAL EXAM [facility] Start: 08-28-1943 PNEUMOCOCCAL: 65+ (1 - PCV) PNEUMOCOCCAL: 65+ (1 - PCV) [facility] Start: 1942 Hemoglobin A1c/Hemoglobin.total in Blood HBA1C [facility] Immunizations Immunization Date Immunization Notes Care Provider Fa cility 03-14-2022 influenza virus vacc ine, unspecified formulation Omer Durham MD Work Phone: [facility] Payers Date Payer Category Payer Medicare [id number] 2015 Private Health Insurance HUMANA HUMANA MEDICARE SUPPLEMENT [id number] 2015-Present [phone] [address] [address] [place] [address] Indemnity [id number] 2015 Private Health Insurance HUMANA HUMANA MEDICARE SUPPLEMENT [id number] 2015-Present [phone] [address] [address] [place] [address] Indemnity [id number] 2002 Medicare MEDICARE MEDICAR E A AND B [id number] 2002-Present [phone] [place] [address] Medicare [id number] 2002 Medicare MEDICARE MEDICAR E A AND B [id number] 2002-Present [phone] [place] [address] Medicare [id number] 2002 Medicare [id number] Social History Date Type Detail Facility Start: 10-06-2019 End: 11-12-2022 Tobacco smoking status NHIS Ex-smoker [facility] End: 06-24-1997 History of tobacco use Current smoker [facility] End: 06-24-1997 History of tobacco use Cigarette Smoker [facility] Start: 10-23-2021 End: 05-29-2023 Alcohol intake Current drinker of alcohol (finding) [facility] Start: 1935 Sex Assigned At Not on file [facility] Start: 10-13-2021 End: 05-03-2022 Exposure to SARS-CoV-2 (event) Not sure [facility] Start: 10-06-2019 End: 11-12-2022 Tobacco use and exposure Smokeless tobacco non-user [facility] Start: 01-19-2022 End: 01-29-2022 Exposure to SARS-CoV-2 (event) Unable to assess [facility] Start: 05-31-2020 End: 11-12-2022 History of Social function [facility] Start: 05-31-2020 End: 11-12-2022 Tobacco use panel [facility] National Score (1-10 0), lower number is lower risk Not on file [facility] Medical Equipment Procedure Code Equipment Code Equipment Origin al Text Equipment Identifier Dates Ra Lead Biotronik-04/16/2016 [id number] Start: 04-16-2016 Rv Lead Biotronik-04/16/2016 [id number] Start: 04-16-2016 Dual Pacer Biotronik-04/16/2016 [id number] Start: 04-16-2016 Clinical Notes 01-13-2018 to 05-29-2023 Mariola Cuadra MD - 05/29/2023 9:57 AM ESTPatient InstructionsSuOmer delarosa MD - 02/21/2023 10:10 AM EDMariola Ma MD - 02/15/2023 2:59 PM EDTPatient Instructions Note Date & Type Note Facility 05-29-2023 Note HNO ID: [id number] Author: Graciela Escobedo APRN.ASSOCIATE DIRECTOR OF DEVELOPMENT Service: ? Author Type: Nurse Practitioner Type: Progress Notes Filed: 05/29/2023 10:27 AM Note Text: [facility] Bert Mccann MD SUBJECTIVE: Edmundo Herrera is a 87 year old male who is here today for a follow up visit. The patient is doing reasonly well from the cardiovascular standpoint. He is chronically short of breath with exertion. This is no different or worse than in the past. He denies pain, palpitations, PND, orthopnea, syncope, near-syncope, or edema. PAST MEDICAL HISTORY Diagnosis Date Acute anterior wall UT (HCC) 05/22/2010 AV node dysfunction Benign hypertension Benign neoplasm of colon CAD (coronary artery disease) Current use of termite technician anticoagulation Xarelto 20 mg daily Diverticulosis DM II (diabetes mellitus, type II) ([facility]) H/O heart artery stent 05/22/2010 PCI/SHANTE to distal LAD History of prostate cancer History of tobacco abuse Hx of echocardiogram 11/22/2021 EF 65%, trivial MR, 1-2+ TR, PA pressure 48 mmHg, 1+ AR, diastolic dysfunction, stage II LVH (left ventricular hypertrophy) Malignant neoplasm of prostate (HCC) Mixed hyperlipidemia Pacemaker 04/16/2016 Dual chamber permanent pacemaker implant by Dr. Cuadra at [facility], Biotronik PAD (peripheral artery disease) ([facility]) with claudication, managed by Dr Lyle Paroxysmal atrial flutter ([facility]) Sinus node dysfunction (HCC) PAST SURGICAL HISTORY Procedure Laterality Date COLONOSCOPY FLX DX W/COLLJ SPEC WHEN PFRMD 10/09/2004 Colonoscopy COLSC FLX W/RMVL OF TUMOR POLYP LESION SNARE TQ 11/28/05 EYE SURGERY HX Left Laser eye surgery for scar tissue removal PACEMAKER Left 04/16/2016 PROSTATECTOMY PERINEAL RADICAL 2000 Prostatectomy, radical PRQ CARDIAC STENT W/ANGIO 1 VSL 05/22/2010 FAMILY HISTORY Problem Relation Age of Onset Breast Cancer Mother Cancer Father Cancer Brother esophageal, SOCIAL HISTORY: Social History Tobacco Use Smoking status: Former Types: Cigarettes Quit date: 06/24/1997 Years since quittin.9 Smokeless tobacco: Never Vaping Use Vaping Use: Never used Substance Use Topics Alcohol use: Yes Comment: occassionally Drug use: No ALLERGIES: Cephalosporins, Ofloxacin, and Smz/Tmp Ds [Other] CURRENT MEDICATIONS: Current Outpatient Medications Medication Sig rivaroxaban (XARELTO) 15 mg tablet Take 15 mg by mouth daily with dinner. atorvastatin (LIPITOR) 20 mg tablet Take 1 tablet by mouth once daily. amLODIPine (NORVASC) 10 mg tablet Take 1 tablet by mouth once daily. fluticasone (FLONASE) 50 mcg/actuation nasal spray Use in the nose. isosorbide mononitrate ER (IMDUR) 60 mg 24 hr tablet Take 1 tablet by mouth once daily. dofetilide (TIKOSYN) 500 mcg capsule Take 1 capsule by mouth twice daily. losartan (COZAAR) 100 mg tablet Take 1 tablet by mouth once daily. cloNIDine HCl (CATAPRES) 0.3 mg tablet Take 1 tablet by mouth twice daily. hydrALAZINE (APRESOLINE) 50 mg tablet 1 1/2 tablets 3 times daily Vit A,C,W-Qhry-Ntbhwp (PRESERVISION AREDS) [id number] nrwa-xn-yoyx cap Take 1 capsule by mouth twice daily. MULTIVITAMIN ORAL TAB Take one(1) tablet daily. No current facility-administered medications for this visit. Review of Systems Constitutional: Negative for activity change and fever. Respiratory: Positive for shortness of breath. Negative for apnea, cough, chest tightness, wheezing and stridor. Cardiovascular: Negative for chest pain, palpitations and leg swelling. Gastrointestinal: Negative for abdominal distention, diarrhea and vomiting. Musculoskeletal: Negative for joint swelling, neck pain and neck stiffness. Skin: Negative for color change, pallor and rash. Neurological: Negative for dizziness, syncope, weakness, light-headedness and numbness. Hematological: Does not bruise/bleed easily. Psychiatric/Behavioral: Negative for agitation, behavioral problems and confusion. The patient is not nervous/anxious. All other systems reviewed and are negative. PHYSICAL EXAMINATION: 05/29/23 1016 BP: 122/60 BP Position: Sitting Pulse: 60 Weight: 81.2 kg (179 lb) Height: 175.3 cm (5' 9 ) Last 3 Encounter BP Readings: Date: BP: 02/21/2023 133/56 11/12/2022 130/70 08/01/2022 154/55 Last 3 Encounter Pulse Readings: Date: Pulse: 02/21/2023 60 11/12/2022 60 08/01/2022 60 Last 3 Encounter Wt Readings: Date: Wt: 02/21/2023 82.4 kg (181 lb 9.6 oz) 11/12/2022 82.1 kg (181 lb) 08/01/2022 82.4 kg (181 lb 9.6 oz) Physical Exam Vitals and nursing note reviewed. Constitutional: General: He is not in acute distress. Appearance: Normal appearance. He is not toxic-appearing. HENT: Head: Normocephalic and atraumatic. Nose: Nose normal. Mouth/Throat: Mouth: Mucous membranes are moist. Neck: Vascular: No carotid bruit. Cardiovascular: Rate and Rhythm: Normal rate and regular rhythm. Pulses: Normal (more content not included)... [facility] 05-29-2023 Note HNO ID: [id number] Author: Mariola Cuadra MD Service: ? Author Type: Physician Type: Progress Notes Filed: 05/29/2023 10:06 PM Note Text: Dual Pacer Report In Office Check Date: May 29, 2023 Time: 9:58 AM Devices: Implants Lead Ra Lead Biotronik-04/16/2016 - Implanted Heart Model/Cat number: YONI Rico [id number] Serial number: [id number] Cnp: [employer] Lot number: LEFT CEPHALIC VEIN Size: Right Atrial Pacing Lead As of 05/01/2020 Status: Implanted Rv Lead Biotronik-04/16/2016 - Implanted Heart Model/Cat number: YONI Rico [id number] Serial number: [id number] Cnp: [employer] Lot number: LEFT CEPHALIC VEIN Size: Right Ventricular Pacing Lead As of 07/24/2020 Status: Implanted Pacemaker Dual Pacer Biotronik-04/16/2016 - Implanted (Left) Chest Wall Model/Cat number: LINA [id number] [id number] Serial number: [id number] Cnp: [employer] Lot number: INITIAL DUAL PACER IMPLANT Size: Persistent Atrial Flutter; AV Dilia dysfunction; Sinus adriane, LVEF 59% Stress test March,; As of 01/29/2022 Status: Implanted Symptoms: None Underlying Rhythm: Sinus Last Interrogation Date: 11-12-2022 Estimated Remaining Longevity: 7 yrs 6 months until JUNIOR Dependency: No Interrogation Performed by: Charisse Cheng LPN Programming Parameters Mode: DDD Lower Rate: 60 Upper Track: 130 Upper Sensor: 120 Paced AV Delay: 180 Sensed AV Delay: 140 Atrial Refractory: ind Mode Switch: 160 Additional Device Information -VS percent: 6% -ANCHOR OPERATOR percent: 54% AP-VS percent: 21% AP-ANCHOR OPERATOR percent: 18% Atrial: Threshold: 1.4 V @ 0.2 msec Programmed amp/PW: 1.6 V @ 0.4 msec P wave: 4.3 mV Sensitivity: 0.5 mV Impedance: 292 ohms Pacing percent: 37% Right Ventricle: Threshold: 0.6 V @ 0.2 msec Programmed amp/PW: 1.0 V @ 0.75 msec R wave: 8.1 mV Sensitivity: 2.5 mV Impedance: 429 ohms RV pacin% Episodes: Atrial Fib count: 64 Atrial burden: 3% Mode Switch episodes: 0 Ventricular Fibrillation count: 0 Fast Ventricular Tachycardia count: 0 Slow Ventricular Tachycardia: 0 NSVT: 0 High Ventricular Rates: 2 Summary: Sees Dr. Durham as well. Normal device function. Normal pacing and sensing threshold. Battery: 7 yrs 6 months until JUNIOR. Histogram: ok. Atrial episodes: 6 AFIB events, 3% of the time. Longest was 2 day and it was back in February. Ventricular episodes: 2 high ventricular rates, longest was 16 seconds. . Changes: none. Follow up: Q 3 month remotes, 12 months device check and provider appointment. [facility] [ID [id number]] [facility] 05-29-2023 History of Present illness Narrative Dual Pacer Report In Office Check Date: May 29, 2023 Time: 9:58 AM Devices: Implants Lead Ra Lead Biotronik-04/16/2016 - Implanted Heart Model/Cat number: YONI Rico [id number] Serial number: [id number] Cnp: [employer] Lot number: LEFT CEPHALIC VEIN Size: Right Atrial Pacing Lead As of 05/01/2020 Status: Implanted Rv Lead Orion medicalroniBusinessElite-04/16/2016 - Implanted Heart Model/Cat number: YONI Rico 60 [id number] Serial number: [id number] Cnp: [employer] Lot number: LEFT CEPHALIC VEIN Size: Right Ventricular Pacing Lead As of 07/24/2020 Status: Implanted Pacemaker Dual Pacer Information Gateway-04/16/2016 - Implanted (Left) Chest Wall Model/Cat number: LINA Laird LETTY JORGENSEN [id number] Serial number: [id number] Cnp: [employer] Lot number: INITIAL DUAL PACER IMPLANT Size: Persistent Atrial Flutter; AV Dilia dysfunction; Sinus adriane, LVEF 59% Stress test March,; As of 01/29/2022 Status: Implanted Symptoms: None Underlying Rhythm: Sinus Last Interrogation Date: 11-12-2022 Estimated Remaining Longevity: 7 yrs 6 months until JUNIOR Dependency: No Interrogation Performed by: Charisse Cheng LPN Programming Parameters Mode: DDD Lower Rate: 60 Upper Track: 130 Upper Sensor: 120 Paced AV Delay: 180 Sensed AV Delay: 140 Atrial Refractory: ind Mode Switch: 160 Additional Device Information -VS percent: 6% -ANCHOR OPERATOR percent: 54% AP-VS percent: 21% AP-ANCHOR OPERATOR percent: 18% Atrial: Threshold: 1.4 V @ 0.2 msec Programmed amp/PW: 1.6 V @ 0.4 msec P wave: 4.3 mV Sensitivity: 0.5 mV Impedance: 292 ohms Pacing percent: 37% Right Ventricle: Threshold: 0.6 V @ 0.2 msec Programmed amp/PW: 1.0 V @ 0.75 msec R wave: 8.1 mV Sensitivity: 2.5 mV Impedance: 429 ohms RV pacin% Episodes: Atrial Fib count: 64 Atrial burden: 3% Mode Switch episodes: 0 Ventricular Fibrillation count: 0 Fast Ventricular Tachycardia count: 0 Slow Ventricular Tachycardia: 0 NSVT: 0 High Ventricular Rates: 2 Summary: Sees Dr. Durham as well. Normal device function. Normal pacing and sensing threshold. Battery: 7 yrs 6 months until JUNIOR. Histogram: ok. Atrial episodes: 6 AFIB events, 3% of the time. Longest was 2 day and it was back in February. Ventricular episodes: 2 high ventricular rates, longest was 16 seconds. . Changes: none. Follow up: Q 3 month remotes, 12 months device check and provider appointment. View External Cardiology - [employer] Strips [ID [id number]] documented in this encounter [facility] 02-21-2023 Note HNO ID: [id number] Author: Omer Durham MD Service: ? Author Type: Physician Type: Progress Notes Filed: 02/21/2023 10:24 AM Note Text: [facility] Cardiovascular [place] OUTPATIENT VISIT DATE February 21, 2023 OUTPATIENT VISIT TYPE FU PRIMARY CARE PHYSICIAN: Bert Mccann [address] [place] [address] [address] [place] [address] HISTORY OF PRESENT ILLNESS: Edmundo Herrera is a 87 year old male here for Follow Up (6 month FU). CARDIAC HISTORY: 87 M, sees Dr. Fields. CAD, SHANTE LAD 2009, old AWMI, Mild AI (SBE prophylaxis), AOE, PAF Rx'd by Dr. Cuadra 2015 (failed cardioversion), had pacer placed, HHD, chol, AODM, peripheral stent for claudication (Dr. Amanda, 2019). 01/17/22 - OA problem. He is doing well, no CV complaints. 08/01/22 - No CV complaints. 02/21/23 - Mild CASTILLO, but no other CV complaints. Overall, not doing too bad, stable, slowing down a little. Social History Tobacco Use Smoking status: Former Types: Cigarettes Quit date: 06/24/1997 Years since quittin.6 Smokeless tobacco: Never Vaping Use Vaping Use: Never used Substance Use Topics Alcohol use: Yes Comment: occassionally Drug use: No ALLERGIES Allergen Reactions Cephalosporins Unknown Ofloxacin Rash, GI Upset Smz/Tmp Ds [Other] Rash MEDICATIONS: fluticasone (FLONASE) 50 mcg/actuation nasal spray Use in the nose. dofetilide (TIKOSYN) 500 mcg capsule Take 1 capsule by mouth twice daily. losartan (COZAAR) 100 mg tablet Take 1 tablet by mouth once daily. hydrALAZINE (APRESOLINE) 50 mg tablet 1 1/2 tablets 3 times daily amLODIPine (NORVASC) 10 mg tablet Take 1 tablet by mouth once daily rivaroxaban (XARELTO) 15 mg tablet Take 15 mg by mouth daily with dinner. atorvastatin (LIPITOR) 20 mg tablet Take 1 tablet by mouth once daily. Vit A,C,P-Txkn-Dkfhrm (PRESERVISION AREDS) 14,320-226-200 hkcu-lq-pwkw cap Take 1 capsule by mouth twice daily. MULTIVITAMIN ORAL TAB Take one(1) tablet daily. cloNIDine HCl (CATAPRES) 0.3 mg tablet Take 1 tablet by mouth twice daily. isosorbide mononitrate ER (IMDUR) 60 mg 24 hr tablet Take 1 tablet by mouth once daily. REVIEW OF SYSTEMS: Review of Systems Constitutional: Negative for activity change, appetite change, chills, diaphoresis, fatigue, fever and unexpected weight change. Respiratory: Positive for shortness of breath. Negative for apnea, cough, choking, chest tightness, wheezing and stridor. Cardiovascular: Negative for chest pain, palpitations and leg swelling. Gastrointestinal: Negative for abdominal pain. Musculoskeletal: Positive for arthralgias. Negative for myalgias. Neurological: Negative for dizziness, syncope and light-headedness. Psychiatric/Behavioral: The patient is not nervous/anxious. PHYSICAL EXAMINATION: BP 133/56 Pulse 60 Ht 5' 9 (1.75m) Wt 181 lb 9.6 oz (82.4kg) SpO2 96% BMI 26.81 kg/(m2). Physical Exam Constitutional: Appearance: Normal appearance. Cardiovascular: Rate and Rhythm: Normal rate and regular rhythm. Heart sounds: No murmur heard. No friction rub. No gallop. Pulmonary: Effort: Pulmonary effort is normal. No respiratory distress. Breath sounds: Normal breath sounds. No wheezing, rhonchi or rales. Chest: Chest wall: No tenderness. Musculoskeletal: Right lower leg: No edema. Left lower leg: No edema. Neurological: Mental Status: He is alert. IMPRESSION AND RECOMMENDATIONS: 1. Coronary artery disease involving tejon coronary artery of tejon heart without angina pectoris LAD SHANTE. 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 No future stress tests. 01/17/22 - Stable. 08/01/22 - Stable. 02/21/23 - Stable, some CASTILLO. 2. Old anterior myocardial infarction 2010. EF?. 3. H/O heart artery stent LAD SHANTE. 4. Nonrheumatic aortic valve insufficiency 1+AI, AO measured 3.6cm. No further ECHO. 5. Thoracic aortic aneurysm without rupture, unspecified part (HCC) 3.6 cm. No further testing. 6. Pacemaker Dr. Cuadar. Sees Graciela. 7. Paroxysmal atrial flutter (HCC) Dr. Cuadra, [place], Failed DCC. Reg d/t paced rhythm. 02/21/23 - Reg, likely paced. 8. Essential (primary) hypertension 152/83. 01/17/22 - Has not taken meds yet today - will watch. 08/01/22 - Increase hydralazine to 75 mg TID. 02/21/23 - OK. 9. Peripheral arterial occlusive disease (HCC) Leg stent for claudication. Bilat carotid disease 65% followed by Dr. Lyle. Omer Durham MD [facility] 02-21-2023 Instructions Omer Durham MD - 02/21/2023 10:22 AM EDT Same meds documented in this encounter [facility] 02-21-2023 History of Present illness Narrative Images from the original note were not included. [facility] [place] OUTPATIENT VISIT DATE February 21, 2023 OUTPATIENT VISIT TYPE FU PRIMARY CARE PHYSICIAN: Bert Mccann [address] [place] [address] [address] [place] [address] HISTORY OF PRESENT ILLNESS: Edmundo Herrera is a 87 year old male here for Follow Up (6 month FU). CARDIAC HISTORY: 87 M, sees Dr. Fields. CAD, SHANTE LAD 2009, old AWMI, Mild AI (SBE prophylaxis), AOE, PAF Rx'd by Dr. Cuadra 2015 (failed cardioversion), had pacer placed, HHD, chol, AODM, peripheral stent for claudication (Dr. Amanda, 2019). 01/17/22 - OA problem. He is doing well, no CV complaints. 08/01/22 - No CV complaints. 8/31/23 - Mild CASTILLO, but no other CV complaints. Overall, not doing too bad, stable, slowing down a little. Social History Tobacco Use Smoking status: Former Types: Cigarettes Quit date: 06/24/1997 Years since quittin.6 Smokeless tobacco: Never Vaping Use Vaping Use: Never used Substance Use Topics Alcohol use: Yes Comment: occassionally Drug use: No ALLERGIES Allergen Reactions Cephalosporins Unknown Ofloxacin Rash, GI Upset Smz/Tmp Ds [Other] Rash MEDICATIONS: fluticasone (FLONASE) 50 mcg/actuation nasal spray Use in the nose. dofetilide (TIKOSYN) 500 mcg capsule Take 1 capsule by mouth twice daily. losartan (COZAAR) 100 mg tablet Take 1 tablet by mouth once daily. hydrALAZINE (APRESOLINE) 50 mg tablet 1 1/2 tablets 3 times daily amLODIPine (NORVASC) 10 mg tablet Take 1 tablet by mouth once daily rivaroxaban (XARELTO) 15 mg tablet Take 15 mg by mouth daily with dinner. atorvastatin (LIPITOR) 20 mg tablet Take 1 tablet by mouth once daily. Vit A,C,V-Dsqa-Stxsoj (PRESERVISION AREDS) 14,320-226-200 sagx-bf-bftn cap Take 1 capsule by mouth twice daily. MULTIVITAMIN ORAL TAB Take one(1) tablet daily. cloNIDine HCl (CATAPRES) 0.3 mg tablet Take 1 tablet by mouth twice daily. isosorbide mononitrate ER (IMDUR) 60 mg 24 hr tablet Take 1 tablet by mouth once daily. REVIEW OF SYSTEMS: Review of Systems Constitutional: Negative for activity change, appetite change, chills, diaphoresis, fatigue, fever and unexpected weight change. Respiratory: Positive for shortness of breath. Negative for apnea, cough, choking, chest tightness, wheezing and stridor. Cardiovascular: Negative for chest pain, palpitations and leg swelling. Gastrointestinal: Negative for abdominal pain. Musculoskeletal: Positive for arthralgias. Negative for myalgias. Neurological: Negative for dizziness, syncope and light-headedness. Psychiatric/Behavioral: The patient is not nervous/anxious. PHYSICAL EXAMINATION: BP 133/56 Pulse 60 Ht 5' 9 (1.75m) Wt 181 lb 9.6 oz (82.4kg) SpO2 96% BMI 26.81 kg/(m^2). Physical Exam Constitutional: Appearance: Normal appearance. Cardiovascular: Rate and Rhythm: Normal rate and regular rhythm. Heart sounds: No murmur heard. No friction rub. No gallop. Pulmonary: Effort: Pulmonary effort is normal. No respiratory distress. Breath sounds: Normal breath sounds. No wheezing, rhonchi or rales. Chest: Chest wall: No tenderness. Musculoskeletal: Right lower leg: No edema. Left lower leg: No edema. Neurological: Mental Status: He is alert. IMPRESSION & RECOMMENDATIONS: 1. Coronary artery disease involving tejon coronary artery of tejon heart without angina pectoris LAD SHANTE. 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 No future stress tests. 01/17/22 - Stable. 08/01/22 - Stable. 02/21/23 - Stable, some CASTILLO. 2. Old anterior myocardial infarction 2009. EF?. 3. H/O heart artery stent LAD SHANTE. 4. Nonrheumatic aortic valve insufficiency 1+AI, AO measured 3.6cm. No further ECHO. 5. Thoracic aortic aneurysm without rupture, unspecified part (HCC) 3.6 cm. No further testing. 6. Pacemaker Dr. Cuadra. Sees Graciela. 7. Paroxysmal atrial flutter (HCC) Dr. Cuadra, [place], Failed DCC. Reg d/t paced rhythm. 02/21/23 - Reg, likely paced. 8. Essential (primary) hypertension 152/83. 01/17/22 - Has not taken meds yet today - will watch. 08/01/22 - Increase hydralazine to 75 mg TID. 02/21/23 - OK. 9. Peripheral arterial occlusive disease (HCC) Leg stent for claudication. Bilat carotid disease 65% followed by Dr. Lyle. Omer Durham MD documented in this encounter [facility] 02-15-2023 Note HNO ID: [id number] Author: Mariola Cuadra MD Service: ? Author Type: Physician Type: Progress Notes Filed: 02/18/2023 8:48 PM Note Text: Dual Pacer Remote Check Date: February 15, 2023 Time: 2:59 PM Devices: Implants Lead Ra Lead Biotronik-04/16/2016 - Implanted Heart Model/Cat number: YONI Rico 53 [id number] Serial number: [id number] Cnp: [employer] Lot number: LEFT CEPHALIC VEIN Size: Right Atrial Pacing Lead As of 05/01/2020 Status: Implanted Rv Lead Biotronik-04/16/2016 - Implanted Heart Model/Cat number: YONI Rico 60 [id number] Serial number: [id number] Cnp: [employer] Lot number: LEFT CEPHALIC VEIN Size: Right Ventricular Pacing Lead As of 07/24/2020 Status: Implanted Pacemaker Dual Pacer Orion [employer]Elite-04/16/2016 - Implanted (Left) Chest Wall Model/Cat number: LINA 8 DR-T JOSLYN [id number] Serial number: [id number] Cnp: [employer] Lot number: INITIAL DUAL PACER IMPLANT Size: Persistent Atrial Flutter; AV Dilia dysfunction; Sinus adriane, LVEF 59% Stress test March,; As of 01/29/2022 Status: Implanted Last Interrogation Date: 11-12-2021 Estimated Remaining Longevity: 60% of the battery left until JUNIOR Interrogation Performed by: Charisse Cheng LPN Programming Parameters Mode: DDD Lower Rate: 60 Upper Track: 130 Upper Sensor: 120 Paced AV Delay: 180 Sensed AV Delay: 140 Atrial Refractory: ind Mode Switch: 160 Additional Device Information -VS percent: 7% -ANCHOR OPERATOR percent: 54% AP-VS percent: 22% AP-ANCHOR OPERATOR percent: 16% Atrial: Threshold: N/a Programmed amp/PW: 1.6 V @ 0.4 msec P wave: 4.2 mV Sensitivity: 0.5 mV Impedance: 293 ohms Pacing percent: 38% Right Ventricle: Threshold: N/a Programmed amp/PW: 1.0 V @ 0.75 msec R wave: 7.2 mV Sensitivity: 2.5 mV Impedance: 449 ohms RV pacin% Episodes: Atrial Fib count: 0 Atrial burden: 0 Mode Switch episodes: 0 Ventricular Fibrillation count: 0 Fast Ventricular Tachycardia count: 0 Slow Ventricular Tachycardia: 0 NSVT: 0 Summary: Normal device function. Normal pacing and sensing threshold. Battery: 60% of the battery left until JUNIOR. Histogram: ok. Atrial episodes: none. Ventricular episodes: none. Follow up: 3 month device check and provider appointment. View External Cardiology - [employer] Strips [ID [id number]] [facility] 02-15-2023 History of Present illness Narrative Dual Pacer Remote Check Date: February 15, 2023 Time: 2:59 PM Devices: Implants Lead Ra Lead Orion medicalroni[employer]Elite-04/16/2016 - Implanted Heart Model/Cat number: YONI Rico [id number] Serial number: [id number] Cnp: [employer] Lot number: LEFT CEPHALIC VEIN Size: Right Atrial Pacing Lead As of 05/01/2020 Status: Implanted Rv Lead Orion medicalronik-04/16/2016 - Implanted Heart Model/Cat number: YONI Rico 60 [id number] Serial number: [id number] Cnp: [employer] Lot number: LEFT CEPHALIC VEIN Size: Right Ventricular Pacing Lead As of 07/24/2020 Status: Implanted Pacemaker Dual Pacer Orion medicalroniBusinessElite-04/16/2016 - Implanted (Left) Chest Wall Model/Cat number: LINA 8 DR-T PROMRI [id number] Serial number: [id number] Cnp: [employer] Lot number: INITIAL DUAL PACER IMPLANT Size: Persistent Atrial Flutter; AV Dilia dysfunction; Sinus adriane, LVEF 59% Stress test March,; As of 01/29/2022 Status: Implanted Last Interrogation Date: 11-12-2021 Estimated Remaining Longevity: 60% of the battery left until JUNIOR Interrogation Performed by: Charisse Cheng LPN Programming Parameters Mode: DDD Lower Rate: 60 Upper Track: 130 Upper Sensor: 120 Paced AV Delay: 180 Sensed AV Delay: 140 Atrial Refractory: ind Mode Switch: 160 Additional Device Information -VS percent: 7% -ANCHOR OPERATOR percent: 54% AP-VS percent: 22% AP-ANCHOR OPERATOR percent: 16% Atrial: Threshold: N/a Programmed amp/PW: 1.6 V @ 0.4 msec P wave: 4.2 mV Sensitivity: 0.5 mV Impedance: 293 ohms Pacing percent: 38% Right Ventricle: Threshold: N/a Programmed amp/PW: 1.0 V @ 0.75 msec R wave: 7.2 mV Sensitivity: 2.5 mV Impedance: 449 ohms RV pacin% Episodes: Atrial Fib count: 0 Atrial burden: 0 Mode Switch episodes: 0 Ventricular Fibrillation count: 0 Fast Ventricular Tachycardia count: 0 Slow Ventricular Tachycardia: 0 NSVT: 0 Summary: Normal device function. Normal pacing and sensing threshold. Battery: 60% of the battery left until JUNIOR. Histogram: ok. Atrial episodes: none. Ventricular episodes: none. Follow up: 3 month device check and provider appointment. View External Cardiology - [employer] Strips [ID [id number]] documented in this encounter [facility] 11-12-2022 Note HNO ID: [id number] Author: Graciela Escobedo APRN.ASSOCIATE DIRECTOR OF DEVELOPMENT Service: ? Author Type: Nurse Practitioner Type: Progress Notes Filed: 11/12/2022 11:48 AM Note Text: [facility] Bert Mccann MD SUBJECTIVE: Edmundo Herrera is a 87 year old male who is here today for a follow-up visit. The patient is doing reasonly well from a cardiovascular standpoint. He has noted his shortness of breath is worsened over the years. The patient was able to work out on a treadmill last year but now he has had problems so he is not doing a lot of physical activity. He associates most of his worsening shortness of breath to inactivity and deconditioning. He has not had chest pain, palpitations, PND, orthopnea, syncope, near-syncope, or edema. PAST MEDICAL HISTORY Diagnosis Date Acute anterior wall UT (HCC) 05/22/2010 AV node dysfunction Benign hypertension Benign neoplasm of colon CAD (coronary artery disease) Current use of correction anticoagulation Xarelto 20 mg daily Diverticulosis DM II (diabetes mellitus, type II) ([facility]) H/O heart artery stent 05/22/2010 PCI/SHANTE to distal LAD History of prostate cancer History of tobacco abuse Hx of echocardiogram 11/22/2021 EF 65%, trivial MR, 1-2+ TR, PA pressure 48 mmHg, 1+ AR, diastolic dysfunction, stage II LVH (left ventricular hypertrophy) Malignant neoplasm of prostate (HCC) Mixed hyperlipidemia Pacemaker 04/16/2016 Dual chamber permanent pacemaker implant by Dr. Cuadra at [facility], Biotronik PAD (peripheral artery disease) ([facility]) with claudication, managed by Dr Lyle Paroxysmal atrial flutter ([facility]) Sinus node dysfunction (HCC) PAST SURGICAL HISTORY Procedure Laterality Date COLONOSCOPY FLX DX W/COLLJ SPEC WHEN PFRMD 10/09/2004 Colonoscopy COLSC FLX W/RMVL OF TUMOR POLYP LESION SNARE TQ 11/28/05 EYE SURGERY HX Left Laser eye surgery for scar tissue removal PACEMAKER Left 04/16/2016 PROSTATECTOMY PERINEAL RADICAL 2000 Prostatectomy, radical PRQ CARDIAC STENT W/ANGIO 1 VSL 05/22/2010 FAMILY HISTORY Problem Relation Age of Onset Breast Cancer Mother Cancer Father Cancer Brother esophageal, SOCIAL HISTORY: Social History Tobacco Use Smoking status: Former Types: Cigarettes Quit date: 06/24/1997 Years since quittin.4 Smokeless tobacco: Never Vaping Use Vaping Use: Never used Substance Use Topics Alcohol use: Yes Comment: occassionally Drug use: No ALLERGIES: Cephalosporins, Ofloxacin, and Smz/Tmp Ds [Other] CURRENT MEDICATIONS: Current Outpatient Medications Medication Sig dofetilide (TIKOSYN) 500 mcg capsule Take 1 capsule by mouth twice daily. losartan (COZAAR) 100 mg tablet Take 1 tablet by mouth once daily. cloNIDine HCl (CATAPRES) 0.3 mg tablet Take 1 tablet by mouth twice daily. hydrALAZINE (APRESOLINE) 50 mg tablet 1 1/2 tablets 3 times daily amLODIPine (NORVASC) 10 mg tablet Take 1 tablet by mouth once daily rivaroxaban (XARELTO) 15 mg tablet Take 15 mg by mouth daily with dinner. atorvastatin (LIPITOR) 20 mg tablet Take 1 tablet by mouth once daily. isosorbide mononitrate ER (IMDUR) 60 mg 24 hr tablet Take 1 tablet by mouth once daily. Vit A,C,V-Ziiv-Atakbm (PRESERVISION AREDS) 14,320-226-200 nezz-ya-xeka cap Take 1 capsule by mouth twice daily. MULTIVITAMIN ORAL TAB Take one(1) tablet daily. Current Facility-Administered Medications Medication Dose Route Frequency perflutren lipid microspheres 1.3 mL in NaCl (PF) 0.9% 10 mL injection (DEFINITY) INTRAVENOUS DIRECTED PRN sodium chloride 0.9 % (flush) 10 mL (BD POSIFLUSH) 10 mL INTRAVENOUS DIRECTED PRN Review of Systems Constitutional: Negative for activity change and fever. Respiratory: Positive for shortness of breath. Negative for apnea, cough, chest tightness, wheezing and stridor. Cardiovascular: Negative for chest pain, palpitations and leg swelling. Gastrointestinal: Negative for abdominal distention, diarrhea and vomiting. Musculoskeletal: Negative for joint swelling, neck pain and neck stiffness. Skin: Negative for color change, pallor and rash. Neurological: Negative for dizziness, syncope, weakness, light-headedness and numbness. Hematological: Does not bruise/bleed easily. Psychiatric/Behavioral: Negative for agitation, behavioral problems and confusion. The patient is not nervous/anxious. All other systems reviewed and are negative. PHYSICAL EXAMINATION: 11/12/22 1126 BP: 130/70 BP Position: Sitting Pulse: 60 Weight: 82.1 kg (181 lb) Height: 175.3 cm (5' 9 ) Last 3 Encounter BP Readings: Date: BP: 08/01/2022 154/55 05/03/2022 130/62 01/17/2022 152/83 Last 3 Encounter Pulse Readings: Date: Pulse: 08/01/2022 60 05/03/2022 60 01/17/2022 103 Last 3 Encounter Wt Readings: Date: Wt: 08/01/2022 82.4 kg (181 lb 9.6 oz) 05/03/2022 78.5 kg (173 lb) 01/17/2022 76.8 kg (169 lb 6.4 oz) Physical Exam Vitals and nursing note reviewed. Consti (more content not included)... [facility] 11-12-2022 Note HNO ID: [id number] Author: Mariola Cuadra MD Service: ? Author Type: Physician Type: Progress Notes Filed: 11/18/2022 10:12 AM Note Text: Dual Pacer Report In Office Check Date: November 12, 2022 Time: 8:41 AM Devices: Implants Lead Ra Lead Biotronik-04/16/2016 - Implanted Heart Model/Cat number: YONI Rico 53 [id number] Serial number: [id number] Cnp: [employer] Lot number: LEFT CEPHALIC VEIN Size: Right Atrial Pacing Lead As of 05/01/2020 Status: Implanted Rv Lead Biotronik-04/16/2016 - Implanted Heart Model/Cat number: YONI Rico 60 [id number] Serial number: [id number] Cnp: [employer] Lot number: LEFT CEPHALIC VEIN Size: Right Ventricular Pacing Lead As of 07/24/2020 Status: Implanted Pacemaker Dual Pacer Biotronik-04/16/2016 - Implanted (Left) Chest Wall Model/Cat number: ELUNA 8 -Bautista JORGENSEN [id number] Serial number: [id number] Cnp: [employer]URN[employer] Lot number: INITIAL DUAL PACER IMPLANT Size: Persistent Atrial Flutter; AV Dilia dysfunction; Sinus adriane, LVEF 59% Stress test March,; As of 01/29/2022 Status: Implanted Symptoms: Gets winded easier recently Underlying Rhythm: Sinus Rhythm Last Interrogation Date: 05-03-2022 Estimated Remaining Longevity: 8 yrs 1 month until JUNIOR Dependency: No Interrogation Performed by: Charisse Cheng LPN Programming Parameters Mode: DDD Lower Rate: 60 Upper Track: 130 Upper Sensor: 120 Paced AV Delay: 180 Sensed AV Delay: 140 Atrial Refractory: ind Mode Switch: 160 Additional Device Information -VS percent: 6% -ANCHOR OPERATOR percent: 49% AP-VS percent: 24% AP-ANCHOR OPERATOR percent: 21% Atrial: Threshold: 0.8 V @ 0.2 msec Programmed amp/PW: 1.3 V @ 0.4 msec P wave: 4.6 mV Sensitivity: 0.5 mV Impedance: 292 ohms Pacing percent: 44% Right Ventricle: Threshold: 0.8 V @ 0.2 msec Programmed amp/PW: 1.0 V @ 0.75 msec R wave: 7.8 mV Sensitivity: 2.5 mV Impedance: 448 ohms RV pacin% Episodes: Atrial Fib count: 41 Atrial burden: 1% Mode Switch episodes: 0 Ventricular Fibrillation count: 0 Fast Ventricular Tachycardia count: 0 Slow Ventricular Tachycardia: 0 NSVT: 0 Summary: Has increased SOB. Normal device function. Normal pacing and sensing threshold. Battery: 8 yrs 1 month until JUNIOR. Histogram: ok. Atrial episodes: 41 AFIB events, 1% of the time. Ventricular episodes: none. Changes: none. Follow up: 3 month remote, 6 months device check and provider appointment. View External Cardiology - [employer] Strips [ID [id number]] [facility] 11-12-2022 History of Present illness Narrative Dual Pacer Report In Office Check Date: November 12, 2022 Time: 8:41 AM Devices: Implants Lead Ra Lead [employer] Gateway-04/16/2016 - Implanted Heart Model/Cat number: YONI Rico 53 [id number] Serial number: [id number] Cnp: [employer] Lot number: LEFT CEPHALIC VEIN Size: Right Atrial Pacing Lead As of 05/01/2020 Status: Implanted Rv Lead Orion medicalronik-04/16/2016 - Implanted Heart Model/Cat number: YONI Rico 60 [id number] Serial number: [id number] Cnp: [employer] Lot number: LEFT CEPHALIC VEIN Size: Right Ventricular Pacing Lead As of 07/24/2020 Status: Implanted Pacemaker Dual Pacer Orion [employer]Elite-04/16/2016 - Implanted (Left) Chest Wall Model/Cat number: LINA 8 LETTY JORGENSEN [id number] Serial number: [id number] Cnp: [employer] Lot number: INITIAL DUAL PACER IMPLANT Size: Persistent Atrial Flutter; AV Dilia dysfunction; Sinus adriane, LVEF 59% Stress test March,; As of 01/29/2022 Status: Implanted Symptoms: Gets winded easier recently Underlying Rhythm: Sinus Rhythm Last Interrogation Date: 05-03-2022 Estimated Remaining Longevity: 8 yrs 1 month until JUNIOR Dependency: No Interrogation Performed by: Charisse Cheng LPN Programming Parameters Mode: DDD Lower Rate: 60 Upper Track: 130 Upper Sensor: 120 Paced AV Delay: 180 Sensed AV Delay: 140 Atrial Refractory: ind Mode Switch: 160 Additional Device Information -VS percent: 6% -ANCHOR OPERATOR percent: 49% AP-VS percent: 24% AP-ANCHOR OPERATOR percent: 21% Atrial: Threshold: 0.8 V @ 0.2 msec Programmed amp/PW: 1.3 V @ 0.4 msec P wave: 4.6 mV Sensitivity: 0.5 mV Impedance: 292 ohms Pacing percent: 44% Right Ventricle: Threshold: 0.8 V @ 0.2 msec Programmed amp/PW: 1.0 V @ 0.75 msec R wave: 7.8 mV Sensitivity: 2.5 mV Impedance: 448 ohms RV pacin% Episodes: Atrial Fib count: 41 Atrial burden: 1% Mode Switch episodes: 0 Ventricular Fibrillation count: 0 Fast Ventricular Tachycardia count: 0 Slow Ventricular Tachycardia: 0 NSVT: 0 Summary: Has increased SOB. Normal device function. Normal pacing and sensing threshold. Battery: 8 yrs 1 month until JUNIOR. Histogram: ok. Atrial episodes: 41 AFIB events, 1% of the time. Ventricular episodes: none. Changes: none. Follow up: 3 month remote, 6 months device check and provider appointment. View External Cardiology - Market President Strips [ID [id number]] documented in this encounter [facility] 10-03-2022 Miscellaneous Notes Patient calls requesting refill: Requested Prescriptions Pending Prescriptions Disp Refills dofetilide (TIKOSYN) 500 mcg capsule 180 capsule 3 Sig: Take 1 capsule by mouth twice daily. Date of last visit:08/01/2022 Phone #: [phone] (home) The patients preferred pharmacy has been captured for this encounter? yes Pt called stating he needs a refill on his dofetilide 500 mg daily 90 day. Called into [facility]. Can you please do this for him documented in this encounter [facility] 08-17-2022 Note HNO ID: [id number] Author: Mariola Cuadra MD Service: ? Author Type: Physician Type: Progress Notes Filed: 08/18/2022 1:59 PM Note Text: Dual Pacer Remote Check Date: August 17, 2022 Time: 3:11 PM Devices: Implants Lead Ra Lead [employer]-04/16/2016 - Implanted Heart Model/Cat number: YONI Rico 53 [id number] Serial number: [id number] Cnp: [employer] Lot number: LEFT CEPHALIC VEIN Size: Right Atrial Pacing Lead As of 05/01/2020 Status: Implanted Rv Lead [employer]-04/16/2016 - Implanted Heart Model/Cat number: YONI Rico 60 [id number] Serial number: [id number] Cnp: [employer] Lot number: LEFT CEPHALIC VEIN Size: Right Ventricular Pacing Lead As of 07/24/2020 Status: Implanted Pacemaker Dual Pacer [employer]-04/16/2016 - Implanted (Left) Chest Wall Model/Cat number: ELUNA 8 -Bautista JORGENSEN [id number] Serial number: [id number] Cnp: [employer] Lot number: INITIAL DUAL PACER IMPLANT Size: Persistent Atrial Flutter; AV Dilia dysfunction; Sinus adriane, LVEF 59% Stress test March,; As of 01/29/2022 Status: Implanted Last Interrogation Date: 05-03-2022 Estimated Remaining Longevity: 60% of the battery left until JUNIOR Interrogation Performed by: Charisse Cheng LPN Programming Parameters Mode: DDD Lower Rate: 60 Upper Track: 130 Upper Sensor: 120 Paced AV Delay: 180 Sensed AV Delay: 140 Atrial Refractory: ind Mode Switch: 160 Additional Device Information -VS percent: 6% -ANCHOR OPERATOR percent: 46% AP-VS percent: 24% AP-ANCHOR OPERATOR percent: 24% Atrial: Threshold: N/a Programmed amp/PW: 1.6 V @ 0.4 msec P wave: 4.5 mV Sensitivity: 0.5 mV Impedance: 273 ohms Pacing percent: 47% Right Ventricle: Threshold: N/a Programmed amp/PW: 1.0 V @ 0.75 msec R wave: 8.0 mV Sensitivity: 2.5 mV Impedance: 449 ohms RV pacin% Episodes: Atrial Fib count: ? (Total # not listed) Atrial burden: 1% Mode Switch episodes: 7 per/day Atrial ATP episode: 0 Ventricular ATP episodes: 0 Ventricular Fibrillation count: 0 Fast Ventricular Tachycardia count: 0 Slow Ventricular Tachycardia: 0 NSVT: 0 Summary: Normal device function. Normal pacing and sensing threshold. Battery: 60% of the battery left until JUNIOR. Histogram: ok. Atrial episodes: Unsure of the total # of AFIB events. 1% burden and longest was 1 day, 4 hours, 31 minutes. Ventricular episodes: none. Follow up: 3 month device check and provider appointment. View External Cardiology - Market President Strips [ID [id number]] [facility] 08-17-2022 History of Present illness Narrative Dual Pacer Remote Check Date: August 17, 2022 Time: 3:11 PM Devices: Implants Lead Ra Lead Orion medicalronik-04/16/2016 - Implanted Heart Model/Cat number: YONI Rico 53 [id number] Serial number: [id number] Cnp: CalendlyRONITURN8 Lot number: LEFT CEPHALIC VEIN Size: Right Atrial Pacing Lead As of 05/01/2020 Status: Implanted Rv Lead [employer]ik-04/16/2016 - Implanted Heart Model/Cat number: YONI Rico 60 [id number] Serial number: [id number] Cnp: [employer] Lot number: LEFT CEPHALIC VEIN Size: Right Ventricular Pacing Lead As of 07/24/2020 Status: Implanted Pacemaker Dual Pacer [employer]ion [employer]-04/16/2016 - Implanted (Left) Chest Wall Model/Cat number: LINA JORGENSEN [id number] Serial number: [id number] Cnp: [employer] Lot number: INITIAL DUAL PACER IMPLANT Size: Persistent Atrial Flutter; AV Dilia dysfunction; Sinus adriane, LVEF 59% Stress test March,; As of 01/29/2022 Status: Implanted Last Interrogation Date: 05-03-2022 Estimated Remaining Longevity: 60% of the battery left until JUNIOR Interrogation Performed by: Charisse Cheng LPN Programming Parameters Mode: DDD Lower Rate: 60 Upper Track: 130 Upper Sensor: 120 Paced AV Delay: 180 Sensed AV Delay: 140 Atrial Refractory: ind Mode Switch: 160 Additional Device Information -VS percent: 6% -ANCHOR OPERATOR percent: 46% AP-VS percent: 24% AP-ANCHOR OPERATOR percent: 24% Atrial: Threshold: N/a Programmed amp/PW: 1.6 V @ 0.4 msec P wave: 4.5 mV Sensitivity: 0.5 mV Impedance: 273 ohms Pacing percent: 47% Right Ventricle: Threshold: N/a Programmed amp/PW: 1.0 V @ 0.75 msec R wave: 8.0 mV Sensitivity: 2.5 mV Impedance: 449 ohms RV pacin% Episodes: Atrial Fib count: ? (Total # not listed) Atrial burden: 1% Mode Switch episodes: 7 per/day Atrial ATP episode: 0 Ventricular ATP episodes: 0 Ventricular Fibrillation count: 0 Fast Ventricular Tachycardia count: 0 Slow Ventricular Tachycardia: 0 NSVT: 0 Summary: Normal device function. Normal pacing and sensing threshold. Battery: 60% of the battery left until JUNIOR. Histogram: ok. Atrial episodes: Unsure of the total # of AFIB events. 1% burden and longest was 1 day, 4 hours, 31 minutes. Ventricular episodes: none. Follow up: 3 month device check and provider appointment. View External Cardiology - Market President Strips [ID [id number]] documented in this encounter [facility] 08-01-2022 Note HNO ID: [id number] Author: Omer Durham MD Service: ? Author Type: Physician Type: Progress Notes Filed: 08/01/2022 1:41 PM Note Text: [facility] [place] OUTPATIENT VISIT DATE August 01, 2022 OUTPATIENT VISIT TYPE FU PRIMARY CARE PHYSICIAN: Bert Mccann [address] [place] [address] HISTORY OF PRESENT ILLNESS: Edmundo Herrera is a 86 year old male here for Follow Up (6 month FU). CARDIAC HISTORY: 86 M, sees Dr. Fields. CAD, SHANTE LAD 2009, old UT, Mild AI (SBE prophylaxis), AOE, PAF Rx'd by Dr. Cuadra 2015 (failed cardioversion), had pacer placed, HHD, chol, AODM, peripheral stent for claudication (Dr. Amanda, 2019). 01/17/22 - OA problem. He is doing well, no CV complaints. 08/01/22 - No CV complaints. Social History Tobacco Use Smoking status: Former Types: Cigarettes Quit date: 06/24/1997 Years since quittin.1 Smokeless tobacco: Never Vaping Use Vaping Use: Never used Substance Use Topics Alcohol use: Yes Comment: occassionally Drug use: No ALLERGIES Allergen Reactions Cephalosporins Unknown Ofloxacin Rash, GI Upset Smz/Tmp Ds [Other] Rash MEDICATIONS: hydrALAZINE (APRESOLINE) 50 mg tabletTake 1 tablet by mouth three times daily.Disp: 270 tabletRfl: 3 amLODIPine (NORVASC) 10 mg tabletTake 1 tablet by mouth once dailyDisp: 90 tabletRfl: 3 rivaroxaban (XARELTO) 15 mg tabletTake 15 mg by mouth daily with dinner.Disp: Rfl: atorvastatin (LIPITOR) 20 mg tabletTake 1 tablet by mouth once daily.Disp: 90 tabletRfl: 3 isosorbide mononitrate ER (IMDUR) 60 mg 24 hr tabletTake 1 tablet by mouth once daily.Disp: 90 tabletRfl: 3 cloNIDine HCl (CATAPRES) 0.3 mg tabletTake 1 tablet by mouth twice daily.Disp: Rfl: metFORMIN (GLUCOPHAGE) 500 mg tabletTake 1 tablet by mouth once daily.Disp: Rfl: losartan (COZAAR) 100 mg tabletTake 1 tablet by mouth once daily.Disp: Rfl: dofetilide (TIKOSYN) 500 mcg capsuleTake 1 capsule by mouth twice daily.Disp: 180 capsuleRfl: 3 Vit A,C,B-Vzlo-Mqrvsz (PRESERVISION AREDS) 14,320-406-200 ysoz-cn-rikl capTake 1 capsule by mouth twice daily.Disp: Rfl: MULTIVITAMIN ORAL TABTake one(1) tablet daily.Disp: Rfl: 0 REVIEW OF SYSTEMS: Review of Systems Constitutional: Negative for activity change, appetite change, chills, diaphoresis, fatigue, fever and unexpected weight change. Respiratory: Negative for apnea, cough, choking, chest tightness, shortness of breath, wheezing and stridor. Cardiovascular: Negative for chest pain, palpitations and leg swelling. Gastrointestinal: Negative for abdominal pain. Musculoskeletal: Negative for myalgias. Neurological: Negative for dizziness, syncope and light-headedness. Psychiatric/Behavioral: The patient is not nervous/anxious. PHYSICAL EXAMINATION: BP 154/55 Pulse 60 Ht 5' 9 (1.75m) Wt 181 lb 9.6 oz (82.4kg) SpO2 97% BMI 26.81 kg/(m2). Physical Exam Constitutional: Appearance: Normal appearance. Cardiovascular: Rate and Rhythm: Normal rate and regular rhythm. Heart sounds: No murmur heard. No friction rub. No gallop. Pulmonary: Effort: Pulmonary effort is normal. No respiratory distress. Breath sounds: Normal breath sounds. No wheezing, rhonchi or rales. Chest: Chest wall: No tenderness. Musculoskeletal: Right lower leg: No edema. Left lower leg: No edema. Neurological: Mental Status: He is alert. IMPRESSION AND RECOMMENDATIONS: 1. Coronary artery disease involving tejon coronary artery of tejon heart without angina pectoris LAD SHANTE. 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 No future stress tests. 01/17/22 - Stable. 08/01/22 - Stable. 2. Old anterior myocardial infarction 2009. 3. Nonrheumatic aortic valve insufficiency 1+AI, AO measured 3.6cm 4. Benign hypertension 152/83. 01/17/22 - Has not taken meds yet today - will watch. 08/01/22 - Increase hydralazine to 75 mg TID. 5. Mixed hyperlipidemia Primary MD. 6. Peripheral arterial occlusive disease (HCC) Leg stent for claudication. Bilat carotid disease 65% followed by Dr. Lyle. 7. Paroxysmal atrial flutter (HCC) Dr. Cuadra, Xarelto, Reg d/t paced rhythm. Omer Durham MD [facility] 08-01-2022 Instructions Omer Durham MD - 08/01/2022 1:41 PM EST Same meds Increase hyfralazine to 1.5 tablets 3 times each day documented in this encounter [facility] 08-01-2022 History of Present illness Narrative Images from the original note were not included. [facility] OUTPATIENT VISIT DATE August 01, 2022 OUTPATIENT VISIT TYPE FU PRIMARY CARE PHYSICIAN: Bert Mccann [address] [place] [address] [address] [place] [address] HISTORY OF PRESENT ILLNESS: Edmundo Herrera is a 86 year old male here for Follow Up (6 month FU). CARDIAC HISTORY: 86 M, sees Dr. Fields. CAD, SHANTE LAD 2009, old [place], Mild AI (SBE prophylaxis), AOE, PAF Rx'd by Dr. Cuadra 2015 (failed cardioversion), had pacer placed, HHD, chol, AODM, peripheral stent for claudication (Dr. Amanda, 2019). 01/17/22 - OA problem. He is doing well, no CV complaints. 08/01/22 - No CV complaints. Social History Tobacco Use Smoking status: Former Types: Cigarettes Quit date: 06/24/1997 Years since quittin.1 Smokeless tobacco: Never Vaping Use Vaping Use: Never used Substance Use Topics Alcohol use: Yes Comment: occassionally Drug use: No ALLERGIES Allergen Reactions Cephalosporins Unknown Ofloxacin Rash, GI Upset Smz/Tmp Ds [Other] Rash MEDICATIONS: hydrALAZINE (APRESOLINE) 50 mg tablet^Take 1 tablet by mouth three times daily.^Disp: 270 tablet^Rfl: 3 amLODIPine (NORVASC) 10 mg tablet^Take 1 tablet by mouth once daily^Disp: 90 tablet^Rfl: 3 rivaroxaban (XARELTO) 15 mg tablet^Take 15 mg by mouth daily with dinner.^Disp: ^Rfl: atorvastatin (LIPITOR) 20 mg tablet^Take 1 tablet by mouth once daily.^Disp: 90 tablet^Rfl: 3 isosorbide mononitrate ER (IMDUR) 60 mg 24 hr tablet^Take 1 tablet by mouth once daily.^Disp: 90 tablet^Rfl: 3 cloNIDine HCl (CATAPRES) 0.3 mg tablet^Take 1 tablet by mouth twice daily.^Disp: ^Rfl: metFORMIN (GLUCOPHAGE) 500 mg tablet^Take 1 tablet by mouth once daily.^Disp: ^Rfl: losartan (COZAAR) 100 mg tablet^Take 1 tablet by mouth once daily.^Disp: ^Rfl: dofetilide (TIKOSYN) 500 mcg capsule^Take 1 capsule by mouth twice daily.^Disp: 180 capsule^Rfl: 3 Vit A,C,V-Ecmb-Tmsnys (PRESERVISION AREDS) 14,320-226-200 jtmv-ae-ranb cap^Take 1 capsule by mouth twice daily.^Disp: ^Rfl: MULTIVITAMIN ORAL TAB^Take one(1) tablet daily.^Disp: ^Rfl: 0 REVIEW OF SYSTEMS: Review of Systems Constitutional: Negative for activity change, appetite change, chills, diaphoresis, fatigue, fever and unexpected weight change. Respiratory: Negative for apnea, cough, choking, chest tightness, shortness of breath, wheezing and stridor. Cardiovascular: Negative for chest pain, palpitations and leg swelling. Gastrointestinal: Negative for abdominal pain. Musculoskeletal: Negative for myalgias. Neurological: Negative for dizziness, syncope and light-headedness. Psychiatric/Behavioral: The patient is not nervous/anxious. PHYSICAL EXAMINATION: BP 154/55 Pulse 60 Ht 5' 9 (1.75m) Wt 181 lb 9.6 oz (82.4kg) SpO2 97% BMI 26.81 kg/(m^2). Physical Exam Constitutional: Appearance: Normal appearance. Cardiovascular: Rate and Rhythm: Normal rate and regular rhythm. Heart sounds: No murmur heard. No friction rub. No gallop. Pulmonary: Effort: Pulmonary effort is normal. No respiratory distress. Breath sounds: Normal breath sounds. No wheezing, rhonchi or rales. Chest: Chest wall: No tenderness. Musculoskeletal: Right lower leg: No edema. Left lower leg: No edema. Neurological: Mental Status: He is alert. IMPRESSION & RECOMMENDATIONS: 1. Coronary artery disease involving tejon coronary artery of tejon heart without angina pectoris LAD SHANTE. 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 No future stress tests. 01/17/22 - Stable. 08/01/22 - Stable. 2. Old anterior myocardial infarction 2009. 3. Nonrheumatic aortic valve insufficiency 1+AI, AO measured 3.6cm 4. Benign hypertension 152/83. 01/17/22 - Has not taken meds yet today - will watch. 08/01/22 - Increase hydralazine to 75 mg TID. 5. Mixed hyperlipidemia Primary MD. 6. Peripheral arterial occlusive disease (HCC) Leg stent for claudication. Bilat carotid disease 65% followed by Dr. Lyle. 7. Paroxysmal atrial flutter ([facility]) Lanny Matta, Reg d/t paced rhythm. Omer Durham MD documented in this encounter [facility] 06-26-2022 Miscellaneous Notes Patient calls requesting refill: Requested Prescriptions Pending Prescriptions Disp Refills hydrALAZINE (APRESOLINE) 50 mg tablet 270 tablet 3 Sig: Take 1 tablet by mouth three times daily. Date of last visit:05/03/2022 Phone #: [phone] (home) The patients preferred pharmacy has been captured for this encounter? yes documented in this encounter [facility] 05-03-2022 Note HNO ID: [id number] Author: Graciela Escobedo APRN.ASSOCIATE DIRECTOR OF DEVELOPMENT Service: ? Author Type: Nurse Practitioner Type: Progress Notes Filed: 05/03/2022 10:59 AM Note Text: [facility] Bert Mccann MD, MD SUBJECTIVE: Edmundo Herrera is a 86 year old male who is here today for a follow-up visit. The patient is doing reasonly well from the electrophysiology standpoint. He denies chest pain, palpitations, PND, orthopnea, syncope, near-syncope, or edema. The only complaint he has is shortness of breath with exertion. Feels like this is likely age-related. PAST MEDICAL HISTORY Diagnosis Date Acute anterior wall UT (HCC) 05/22/2010 AV node dysfunction Benign hypertension Benign neoplasm of colon CAD (coronary artery disease) Current use of termite technician anticoagulation Xarelto 20 mg daily Diverticulosis DM II (diabetes mellitus, type II) (HCC) H/O heart artery stent 05/22/2010 PCI/SHANTE to distal LAD History of prostate cancer History of tobacco abuse Hx of echocardiogram 11/22/2021 EF 65%, trivial MR, 1-2+ TR, PA pressure 48 mmHg, 1+ AR, diastolic dysfunction, stage II LVH (left ventricular hypertrophy) Malignant neoplasm of prostate (HCC) Mixed hyperlipidemia Pacemaker 04/16/2016 Dual chamber permanent pacemaker implant by Dr. Cuadra at [facility], [employer] PAD (peripheral artery disease) (HCC) with claudication, managed by Dr Lyle Paroxysmal atrial flutter (HCC) Sinus node dysfunction (HCC) PAST SURGICAL HISTORY Procedure Laterality Date COLONOSCOPY FLX DX W/COLLJ SPEC WHEN PFRMD 10/09/2004 Colonoscopy COLSC FLX W/RMVL OF TUMOR POLYP LESION SNARE TQ 11/28/05 EYE SURGERY HX Left Laser eye surgery for scar tissue removal PACEMAKER Left 04/16/2016 PROSTATECTOMY PERINEAL RADICAL 2000 Prostatectomy, radical PRQ CARDIAC STENT W/ANGIO 1 VSL 05/22/2010 FAMILY HISTORY Problem Relation Age of Onset Breast Cancer Mother Cancer Father Cancer Brother esophageal, SOCIAL HISTORY: Social History Tobacco Use Smoking status: Former Types: Cigarettes Quit date: 06/24/1997 Years since quittin.8 Smokeless tobacco: Never Vaping Use Vaping Use: Never used Substance Use Topics Alcohol use: Yes Comment: occassionally Drug use: No ALLERGIES: Cephalosporins, Ofloxacin, and Smz/Tmp Ds [Other] CURRENT MEDICATIONS: Current Outpatient Medications Medication Sig rivaroxaban (XARELTO) 15 mg tablet Take 15 mg by mouth daily with dinner. atorvastatin (LIPITOR) 20 mg tablet Take 1 tablet by mouth once daily. isosorbide mononitrate ER (IMDUR) 60 mg 24 hr tablet Take 1 tablet by mouth once daily. cloNIDine HCl (CATAPRES) 0.3 mg tablet Take 1 tablet by mouth twice daily. losartan (COZAAR) 100 mg tablet Take 1 tablet by mouth once daily. organ preservation soln-Belzer (VIASPAN, BELZER UW, COLD SS PERFUSION) VIASPAN SOLUTION dofetilide (TIKOSYN) 500 mcg capsule Take 1 capsule by mouth twice daily. Vit A,C,I-Qtmn-Survyl (PRESERVISION AREDS) 14,320226-200 ivyg-hu-kioh cap Take 1 capsule by mouth twice daily. amLODIPine (NORVASC) 10 mg tablet Take 1 tablet by mouth once daily. MULTIVITAMIN ORAL TAB Take one(1) tablet daily. hydrALAZINE (APRESOLINE) 50 mg tablet Take 1 tablet by mouth three times daily. metFORMIN (GLUCOPHAGE) 500 mg tablet Take 1 tablet by mouth once daily. Current Facility-Administered Medications Medication Dose Route Frequency perflutren lipid microspheres 1.3 mL in NaCl (PF) 0.9% 10 mL injection (DEFINITY) INTRAVENOUS DIRECTED PRN sodium chloride 0.9 % (flush) 10 mL (BD POSIFLUSH) 10 mL INTRAVENOUS DIRECTED PRN Review of Systems Constitutional: Negative for activity change and fever. Respiratory: Positive for shortness of breath. Negative for apnea, cough, chest tightness, wheezing and stridor. Cardiovascular: Negative for chest pain, palpitations and leg swelling. Gastrointestinal: Negative for abdominal distention, diarrhea and vomiting. Musculoskeletal: Negative for joint swelling, neck pain and neck stiffness. Skin: Negative for color change, pallor and rash. Neurological: Negative for dizziness, syncope, weakness, light-headedness and numbness. Hematological: Does not bruise/bleed easily. Psychiatric/Behavioral: Negative for agitation, behavioral problems and confusion. The patient is not nervous/anxious. All other systems reviewed and are negative. PHYSICAL EXAMINATION: 05/03/22 1051 BP: 130/62 BP Position: Sitting Pulse: 60 Weight: 78.5 kg (173 lb) Height: 175.3 cm (5' 9 ) Last 3 Encounter BP Readings: Date: BP: 01/17/2022 152/83 01/12/2022 113/48 10/23/2021 130/68 Last 3 Encounter Pulse Readings: Date: Pulse: 01/17/2022 103 01/12/2022 60 10/23/2021 99 Last 3 Encounter Wt Readings: Date: Wt: 01/17/2022 76.8 kg (169 lb 6.4 oz) 01/12/2022 78.5 kg (173 lb) 10/23/2021 78.9 kg (174 lb) Physical Exam Vitals and nursing note reviewed. Constitutional: G (more content not included)... [facility] 05-03-2022 Note HNO ID: [id number] Author: Mariola Cuadra MD Service: ? Author Type: Physician Type: Progress Notes Filed: 05/20/2022 12:17 AM Note Text: Dual Pacer Report In Office Check Date: May 03, 2022 Time: 10:40 AM Devices: Implants Lead Ra Lead Information Gateway-04/16/2016 - Implanted Heart Model/Cat number: YONI Rico 53 [id number] Serial number: [id number] Cnp: [employer] Lot number: LEFT CEPHALIC VEIN Size: Right Atrial Pacing Lead As of 05/01/2020 Status: Implanted Rv Lead Information Gateway-04/16/2016 - Implanted Heart Model/Cat number: YONI Rico 60 [id number] Serial number: [id number] Cnp: [employer]URN[employer] Lot number: LEFT CEPHALIC VEIN Size: Right Ventricular Pacing Lead As of 07/24/2020 Status: Implanted Pacemaker Dual Pacer Information Gateway-04/16/2016 - Implanted (Left) Chest Wall Model/Cat number: ELUNA 8 DR-T JOSLYN [id number] Serial number: [id number] Cnp: [employer]URN[employer] Lot number: INITIAL DUAL PACER IMPLANT Size: Persistent Atrial Flutter; AV Dilia dysfunction; Sinus adriane, LVEF 59% Stress test March,; As of 01/29/2022 Status: Implanted Symptoms: None Underlying Rhythm: Sinus Rhythm Last Interrogation Date: 10-23-2021 Estimated Remaining Longevity: 8 yrs 7 months until JUNIOR Dependency: No Interrogation Performed by: Charisse Cheng LPN Programming Parameters Mode: DDD Lower Rate: 60 Upper Track: 130 Upper Sensor: 120 Paced AV Delay: 180 Sensed AV Delay: 140 Atrial Refractory: ond Mode Switch: 160 Additional Device Information -VS percent: 5% -ANCHOR OPERATOR percent: 52% AP-VS percent: 20% AP-ANCHOR OPERATOR percent: 17% Atrial: Threshold: 0.8 V @ 0.2 msec Programmed amp/PW: 1.5 V @ 0.4 msec P wave: 5.2 mV Sensitivity: 0.5 mV Impedance: 292 ohms Pacing percent: 37% Right Ventricle: Threshold: 0.6 V @ 0.2 msec Programmed amp/PW: 1.0 V @ 0.75 msec R wave: 10.0 mV Sensitivity: 2.5 mV Impedance: 448 ohms RV pacin% Episodes: Atrial Fib count: 72 Atrial burden: 0% Mode Switch episodes: 0 Atrial ATP episode: 0 Ventricular ATP episodes: 0 Ventricular Fibrillation count: 0 Fast Ventricular Tachycardia count: 0 Slow Ventricular Tachycardia: 0 NSVT: 0 Summary: Pt forgot to take his h.s meds last night so he took them at 3 a.m. He has not taken his regular a.m. meds yet. Normal device function. Normal pacing and sensing threshold. Battery: 8 yrs 7 months until JUNIOR. Histogram: ok. Atrial episodes: 72 AFIB events, 0% of the time. Ventricular episodes: none. Changes: none. Follow up: 3 month remote, 6 months device check and provider appointment. View External Cardiology - Market President Strips [ID [id number]] [facility] 05-03-2022 History of Present illness Narrative [facility] CARDIOLOG[facility] Bert Mccann MD, MD SUBJECTIVE: Edmundo Herrera is a 86 year old male who is here today for a follow-up visit. The patient is doing reasonly well from the electrophysiology standpoint. He denies chest pain, palpitations, PND, orthopnea, syncope, near-syncope, or edema. The only complaint he has is shortness of breath with exertion. Feels like this is likely age-related. PAST MEDICAL HISTORY Diagnosis Date Acute anterior wall UT ([facility]) 05/22/2010 AV node dysfunction Benign hypertension Benign neoplasm of colon CAD (coronary artery disease) Current use of correction anticoagulation Xarelto 20 mg daily Diverticulosis DM II (diabetes mellitus, type II) ([facility]) H/O heart artery stent 05/22/2010 PCI/SHANTE to distal LAD History of prostate cancer History of tobacco abuse Hx of echocardiogram 11/22/2021 EF 65%, trivial MR, 1-2+ TR, PA pressure 48 mmHg, 1+ AR, diastolic dysfunction, stage II LVH (left ventricular hypertrophy) Malignant neoplasm of prostate ([facility]) Mixed hyperlipidemia Pacemaker 04/16/2016 Dual chamber permanent pacemaker implant by Dr. Cuadra at [facility], Biotronik PAD (peripheral artery disease) ([facility]) with claudication, managed by Dr Lyle Paroxysmal atrial flutter (HCC) Sinus node dysfunction (HCC) PAST SURGICAL HISTORY Procedure Laterality Date COLONOSCOPY FLX DX W/COLLJ SPEC WHEN PFRMD 10/09/2004 Colonoscopy COLSC FLX W/RMVL OF TUMOR POLYP LESION SNARE TQ 11/28/05 EYE SURGERY HX Left Laser eye surgery for scar tissue removal PACEMAKER Left 04/16/2016 PROSTATECTOMY PERINEAL RADICAL 2000 Prostatectomy, radical PRQ CARDIAC STENT W/ANGIO 1 VSL 05/22/2010 FAMILY HISTORY Problem Relation Age of Onset Breast Cancer Mother Cancer Father Cancer Brother esophageal, SOCIAL HISTORY: Social History Tobacco Use Smoking status: Former Types: Cigarettes Quit date: 06/24/1997 Years since quittin.8 Smokeless tobacco: Never Vaping Use Vaping Use: Never used Substance Use Topics Alcohol use: Yes Comment: occassionally Drug use: No ALLERGIES: Cephalosporins, Ofloxacin, and Smz/Tmp Ds [Other] CURRENT MEDICATIONS: Current Outpatient Medications Medication Sig rivaroxaban (XARELTO) 15 mg tablet Take 15 mg by mouth daily with dinner. atorvastatin (LIPITOR) 20 mg tablet Take 1 tablet by mouth once daily. isosorbide mononitrate ER (IMDUR) 60 mg 24 hr tablet Take 1 tablet by mouth once daily. cloNIDine HCl (CATAPRES) 0.3 mg tablet Take 1 tablet by mouth twice daily. losartan (COZAAR) 100 mg tablet Take 1 tablet by mouth once daily. organ preservation soln-Belzer (VIASPAN, BELZER UW, COLD SS PERFUSION) VIASPAN SOLUTION dofetilide (TIKOSYN) 500 mcg capsule Take 1 capsule by mouth twice daily. Vit A,C,K-Lykh-Ugnuyq (PRESERVISION AREDS) 14,320-226-200 bhzq-dd-jwpl cap Take 1 capsule by mouth twice daily. amLODIPine (NORVASC) 10 mg tablet Take 1 tablet by mouth once daily. MULTIVITAMIN ORAL TAB Take one(1) tablet daily. hydrALAZINE (APRESOLINE) 50 mg tablet Take 1 tablet by mouth three times daily. metFORMIN (GLUCOPHAGE) 500 mg tablet Take 1 tablet by mouth once daily. Current Facility-Administered Medications Medication Dose Route Frequency perflutren lipid microspheres 1.3 mL in NaCl (PF) 0.9% 10 mL injection (DEFINITY) INTRAVENOUS DIRECTED PRN sodium chloride 0.9 % (flush) 10 mL (BD POSIFLUSH) 10 mL INTRAVENOUS DIRECTED PRN Review of Systems Constitutional: Negative for activity change and fever. Respiratory: Positive for shortness of breath. Negative for apnea, cough, chest tightness, wheezing and stridor. Cardiovascular: Negative for chest pain, palpitations and leg swelling. Gastrointestinal: Negative for abdominal distention, diarrhea and vomiting. Musculoskeletal: Negative for joint swelling, neck pain and neck stiffness. Skin: Negative for color change, pallor and rash. Neurological: Negative for dizziness, syncope, weakness, light-headedness and numbness. Hematological: Does not bruise/bleed easily. Psychiatric/Behavioral: Negative for agitation, behavioral problems and confusion. The patient is not nervous/anxious. All other systems reviewed and are negative. PHYSICAL EXAMINATION: 05/03/22 1051 BP: 130/62 BP Position: Sitting Pulse: 60 Weight: 78.5 kg (173 lb) Height: 175.3 cm (5' 9 ) Last 3 Encounter BP Readings: Date: BP: 01/17/2022 152/83 01/12/2022 113/48 10/23/2021 130/68 Last 3 Encounter Pulse Readings: Date: Pulse: 01/17/2022 103 01/12/2022 60 10/23/2021 99 Last 3 Encounter Wt Readings: Date: Wt: 01/17/2022 76.8 kg (169 lb 6.4 oz) 01/12/2022 78.5 kg (173 lb) 10/23/2021 78.9 kg (174 lb) Physical Exam Vitals and nursing note reviewed. Constitutional: General: He is not in acute distress. Appearance: Normal appearance. He is not toxic-appearing. HENT: Head: Normocephalic and atraumatic. Nose: Nose normal. Mouth/Throat: Mouth: Mucous membranes are moist. Neck: Vascular: No carotid bruit. Cardiovascular: Rate and Rhythm: Normal rate and regular rhythm. Pulses: Normal pulses. Heart sounds: Normal heart sounds. No murmur heard. No friction rub. No gallop. Pulmonary: Effort: Pulmonary effort is normal. No respiratory distress. Breath sounds: Normal breath sounds. No stridor. No wheezing, rhonchi or rales. Chest: Chest wall: No tenderness. Abdominal: General: Abdomen is flat. There is no distension. Palpations: Abdomen is soft. There is no mass. Tenderness: There is no abdominal tenderness. Musculoskeletal: General: No swelling. Cervical back: Normal range of motion. No muscular tenderness. Right lower leg: No edema. Left lower leg: No edema. Skin: Capillary Refill: Capillary refill takes less than 2 seconds. Coloration: Skin is not jaundiced or pale. Findings: No bruising or rash. Neurological: General: No focal deficit present. Mental Status: He is alert and oriented to person, place, and time. Mental status is at baseline. Motor: No weakness. Gait: Gait normal. Psychiatric: Mood and Affect: Mood normal. Behavior: Behavior normal. Thought Content: Thought content normal. Judgment: Judgment normal. Diagnostic results: Pacemaker check: Normal device function. Normal pacing and sensing threshold. Battery: 8 yrs 7 months until JUNIOR. Histogram: ok. Atrial episodes: 72 AFIB events, 0% of the time. Ventricular episodes: none. Changes: none. ASSESSMENT/PLAN: 1. Benign hypertension - ICD9: 401.1, ICD10: I10 Target BP 130/80 or less. The pt is on chronic medications. Blood pressure controlled on current medications. 2. Mixed hyperlipidemia - ICD9: 272.2, ICD10: E78.2 Patient is on Lipitor 20 mg daily. Managed by primary care physician. 3. Coronary artery disease involving tejon coronary artery of tejon heart without angina pectoris - ICD9: 414.01, ICD10: I25.10 Drug-eluting stent-distal LAD in 2009. Patient is on chronic medication. He is not complaining of chest pain 4. Paroxysmal atrial flutter (HCC) - ICD9: 427.32, ICD10: I48.92 Patient present on Tikosyn 500 mcg p.o. every 12 hours. He is maintaining sinus rhythm by pacemaker interrogation. We will plan to continue same medications and monitor for recurrent A. fib. 5. Current use of termite technician anticoagulation - ICD9: V58.61, ICD10: Z79.01 Patient is on Xarelto 20 mg daily. The pt is not complaining of any signs and symptoms of bleeding. The patient was instructed to call with any problems. 6. Pacemaker - ICD9: V45.01, ICD10: Z95.0 The patient has a dual-chamber pacemaker. Normal function by today's interrogation. We will plan to monitor the device by every 3-month checks and as needed. 7. AV node dysfunction - ICD9: 426.89, ICD10: I45.89 Chronic, the patient has a dual-chamber pacemaker. Stable. 8. Sinus node dysfunction (HCC) - ICD9: 427.81, ICD10: I49.5 Chronic, the patient has a dual-chamber pacemaker. Stable. 9. Shortness of breath R016.02 Patient complains of shortness of breath with exertion. He thinks this is age-related. He had an echocardiogram this year. It looks like there was no major issues. We discussed possibly doing a stress test. The patient declined. He will call if he changes his mind. Graciela Escobedo APRN.ASSOCIATE DIRECTOR OF DEVELOPMENT documented in this encounter [facility] 05-03-2022 History of Present illness Narrative Dual Pacer Report In Office Check Date: May 03, 2022 Time: 10:40 AM Devices: Implants Lead Ra Lead Orion [employer]-04/16/2016 - Implanted Heart Model/Cat number: YONI Rico [id number] Serial number: [id number] Cnp: [employer] Lot number: LEFT CEPHALIC VEIN Size: Right Atrial Pacing Lead As of 05/01/2020 Status: Implanted Rv Lead Biotronik-04/16/2016 - Implanted Heart Model/Cat number: YONI Rico 60 [id number] Serial number: [id number] Cnp: [employer] Lot number: LEFT CEPHALIC VEIN Size: Right Ventricular Pacing Lead As of 07/24/2020 Status: Implanted Pacemaker Dual Pacer Biotronik-04/16/2016 - Implanted (Left) Chest Wall Model/Cat number: ELUNA 8 -T [id number] [id number] Serial number: [id number] Cnp: [employer] Lot number: INITIAL DUAL PACER IMPLANT Size: Persistent Atrial Flutter; AV Dilia dysfunction; Sinus adriane, LVEF 59% Stress test March,; As of 01/29/2022 Status: Implanted Symptoms: None Underlying Rhythm: Sinus Rhythm Last Interrogation Date: 10-23-2021 Estimated Remaining Longevity: 8 yrs 7 months until JUNIOR Dependency: No Interrogation Performed by: Charisse Cheng LPN Programming Parameters Mode: DDD Lower Rate: 60 Upper Track: 130 Upper Sensor: 120 Paced AV Delay: 180 Sensed AV Delay: 140 Atrial Refractory: ond Mode Switch: 160 Additional Device Information -VS percent: 5% -ANCHOR OPERATOR percent: 52% AP-VS percent: 20% AP-ANCHOR OPERATOR percent: 17% Atrial: Threshold: 0.8 V @ 0.2 msec Programmed amp/PW: 1.5 V @ 0.4 msec P wave: 5.2 mV Sensitivity: 0.5 mV Impedance: 292 ohms Pacing percent: 37% Right Ventricle: Threshold: 0.6 V @ 0.2 msec Programmed amp/PW: 1.0 V @ 0.75 msec R wave: 10.0 mV Sensitivity: 2.5 mV Impedance: 448 ohms RV pacin% Episodes: Atrial Fib count: 72 Atrial burden: 0% Mode Switch episodes: 0 Atrial ATP episode: 0 Ventricular ATP episodes: 0 Ventricular Fibrillation count: 0 Fast Ventricular Tachycardia count: 0 Slow Ventricular Tachycardia: 0 NSVT: 0 Summary: Pt forgot to take his h.s meds last night so he took them at 3 a.m. He has not taken his regular a.m. meds yet. Normal device function. Normal pacing and sensing threshold. Battery: 8 yrs 7 months until JUNIOR. Histogram: ok. Atrial episodes: 72 AFIB events, 0% of the time. Ventricular episodes: none. Changes: none. Follow up: 3 month remote, 6 months device check and provider appointment. View External Cardiology - Market President Strips [ID [id number]] documented in this encounter [facility] 03-30-2022 Miscellaneous Notes Patient calls requesting refill: Requested Prescriptions Pending Prescriptions Disp Refills hydrALAZINE (APRESOLINE) 50 mg tablet 270 tablet 1 Sig: Take 1 tablet by mouth three times daily. Date of last visit:10/23/2021 Phone #: [phone] (home) The patients preferred pharmacy has been captured for this encounter? yes documented in this encounter [facility] 01-29-2022 Note HNO ID: [id number] Author: Mariola Cuadra MD Service: ? Author Type: Physician Type: Progress Notes Filed: 01/29/2022 9:17 PM Note Text: Dual Pacer Remote Check Date: January 29, 2022 Time: 2:09 PM Devices: Implants Lead Ra Lead [employer]ion medicalronik-04/16/2016 - Implanted Heart Model/Cat number: YONI Rico 53 [id number] Serial number: [id number] Cnp: [employer] Lot number: LEFT CEPHALIC VEIN Size: Right Atrial Pacing Lead As of 05/01/2020 Status: Implanted Rv Lead Biotronik-04/16/2016 - Implanted Heart Model/Cat number: YONI Rico 60 [id number] Serial number: [id number] Cnp: [employer] Lot number: LEFT CEPHALIC VEIN Size: Right Ventricular Pacing Lead As of 07/24/2020 Status: Implanted Pacemaker Dual Pacer [employer] medicalronik-04/16/2016 - Implanted (Left) Chest Wall Model/Cat number: LINA 8 DR-T PROMRI [id number] Serial number: [id number] Cnp: [employer]end[employer]RONITURN8 Lot number: INITIAL DUAL PACER IMPLANT Size: Persistent Atrial Flutter; AV Dilia dysfunction; Sinus adriane, LVEF 59% Stress test March,; As of 01/29/2022 Status: Implanted Last Interrogation Date: 10/23/21 Estimated Remaining Longevity: Ok, 65% until JUNIOR Interrogation Performed by: Yoanna Gonsales RN Programming Parameters Mode: DDD Lower Rate: 60 Upper Track: 130 Upper Sensor: 120 Paced AV Delay: 180 Sensed AV Delay: 135 Atrial Refractory: 275 Mode Switch: 160 Additional Device Information -VS percent: 5% -ANCHOR OPERATOR percent: 50% AP-VS percent: 22% AP-ANCHOR OPERATOR percent: 17% Atrial: Threshold: 0.1 V @ 0.4 msec Programmed amp/PW: *1.1 V @ 0.4 msec P wave: 5.2 mV Sensitivity: 0.5 mV Impedance: 293 ohms Pacing percent: 39% Right Ventricle: Threshold: off Programmed amp/PW: 1.0 V @ 0.75 msec R wave: 11.2 mV Sensitivity: 2.5 mV Impedance: 468 ohms RV pacin% Episodes: Atrial Fib count: 1/day Atrial burden: 1% Mode Switch episodes: 3/day Atrial ATP episode: 0 Ventricular ATP episodes: 0 Ventricular Fibrillation count: 0 Fast Ventricular Tachycardia count: 0 Slow Ventricular Tachycardia: 0 NSVT: 0 Summary: Normal device function. Normal pacing and sensing threshold. Battery: Ok, 65% until JUNIOR. Histogram: N/A. Atrial episodes: 1 atrial arrhythmia/day and 3 mode switches/day for 1% of time. EGMs saved. Ventricular episodes: None. Follow up: 3 month device check and provider appointment. Scan on 01/29/2022 2:14 PM by External Provider: Market President strips [facility] 01-29-2022 History of Present illness Narrative Dual Pacer Remote Check Date: January 29, 2022 Time: 2:09 PM Devices: Implants Lead Ra Lead [employer]-04/16/2016 - Implanted Heart Model/Cat number: YONI Rico 53 [id number] Serial number: [id number] Cnp: [employer] Lot number: LEFT CEPHALIC VEIN Size: Right Atrial Pacing Lead As of 05/01/2020 Status: Implanted Rv Lead [employer]-04/16/2016 - Implanted Heart Model/Cat number: YONI Rico 60 [id number] Serial number: [id number] Cnp: [employer] Lot number: LEFT CEPHALIC VEIN Size: Right Ventricular Pacing Lead As of 07/24/2020 Status: Implanted Pacemaker Dual Pacer [employer]-04/16/2016 - Implanted (Left) Chest Wall Model/Cat number: LINA 8 -Bautista JORGENSEN [id number] Serial number: [id number] Cnp: Calend[employer]RONITURN8 Lot number: INITIAL DUAL PACER IMPLANT Size: Persistent Atrial Flutter; AV Dilia dysfunction; Sinus adriane, LVEF 59% Stress test March,; As of 01/29/2022 Status: Implanted Last Interrogation Date: 10/23/21 Estimated Remaining Longevity: Ok, 65% until JUNIOR Interrogation Performed by: Yoanna Gonsales RN Programming Parameters Mode: DDD Lower Rate: 60 Upper Track: 130 Upper Sensor: 120 Paced AV Delay: 180 Sensed AV Delay: 135 Atrial Refractory: 275 Mode Switch: 160 Additional Device Information -VS percent: 5% -ANCHOR OPERATOR percent: 50% AP-VS percent: 22% AP-ANCHOR OPERATOR percent: 17% Atrial: Threshold: 0.1 V @ 0.4 msec Programmed amp/PW: *1.1 V @ 0.4 msec P wave: 5.2 mV Sensitivity: 0.5 mV Impedance: 293 ohms Pacing percent: 39% Right Ventricle: Threshold: off Programmed amp/PW: 1.0 V @ 0.75 msec R wave: 11.2 mV Sensitivity: 2.5 mV Impedance: 468 ohms RV pacin% Episodes: Atrial Fib count: 1/day Atrial burden: 1% Mode Switch episodes: 3/day Atrial ATP episode: 0 Ventricular ATP episodes: 0 Ventricular Fibrillation count: 0 Fast Ventricular Tachycardia count: 0 Slow Ventricular Tachycardia: 0 NSVT: 0 Summary: Normal device function. Normal pacing and sensing threshold. Battery: Ok, 65% until JUNIOR. Histogram: N/A. Atrial episodes: 1 atrial arrhythmia/day and 3 mode switches/day for 1% of time. EGMs saved. Ventricular episodes: None. Follow up: 3 month device check and provider appointment. Scan on 01/29/2022 2:14 PM by External Provider: Market President strips documented in this encounter [facility] 01-17-2022 Instructions Omer Durham MD - 01/17/2022 1:33 PM EDT Same meds documented in this encounter [facility] 01-17-2022 History of Present illness Narrative Images from the original note were not included. [facility] OUTPATIENT VISIT DATE January 17, 2022 OUTPATIENT VISIT TYPE PRIMARY CARE PHYSICIAN: Bert Mccann MD [address] [place], [place] [id number] HISTORY OF PRESENT ILLNESS: Edmundo Herrera is a 86 year old male here for Follow Up (6 month follow up). CARDIAC HISTORY: 86 M, sees Dr. Fields. CAD, SHANTE LAD 2009, old UT, Mild AI (SBE prophylaxis), AOE, PAF Rx'd by Dr. Cuadra 2015 (failed cardioversion), had pacer placed, HHD, chol, AODM, peripheral stent for claudication (Dr. Amanda, 2019). 01/17/22 - OA problem. He is doing well, no CV complaints. Social History Tobacco Use Smoking status: Former Smoker Types: Cigarettes Quit date: 06/24/1997 Years since quittin.5 Smokeless tobacco: Never Used Vaping Use Vaping Use: Never used Substance Use Topics Alcohol use: Yes Comment: occassionally Drug use: No ALLERGIES Allergen Reactions Cephalosporins Unknown Ofloxacin Rash, GI Upset Smz/Tmp Ds [Other] Rash MEDICATIONS: cloNIDine HCl (CATAPRES) 0.3 mg tablet Take 1 tablet by mouth twice daily. metFORMIN (GLUCOPHAGE) 500 mg tablet Take 1 tablet by mouth once daily. losartan (COZAAR) 100 mg tablet Take 1 tablet by mouth once daily. organ preservation soln-Belzer (VIASPAN, BELZER UW, COLD SS PERFUSION) VIASPAN SOLUTION hydrALAZINE (APRESOLINE) 50 mg tablet Take 1 tablet by mouth three times daily. dofetilide (TIKOSYN) 500 mcg capsule Take 1 capsule by mouth twice daily. rivaroxaban (XARELTO) 15 mg tablet Take 1 tablet by mouth daily with dinner. Vit A,C,O-Hucs-Zhpozg (PRESERVISION AREDS) 14,320-226-200 ztdn-dr-wxkk cap Take 1 capsule by mouth twice daily. amLODIPine (NORVASC) 10 mg tablet Take 1 tablet by mouth once daily. isosorbide mononitrate ER (IMDUR) 60 mg 24 hr tablet Take 1.5 tablets by mouth once daily. atorvastatin (LIPITOR) 20 mg tablet Take 1 tablet by mouth once daily. MULTIVITAMIN ORAL TAB Take one(1) tablet daily. REVIEW OF SYSTEMS: Review of Systems Constitutional: Negative for activity change, appetite change, chills, diaphoresis, fatigue, fever and unexpected weight change. Respiratory: Negative for apnea, cough, choking, chest tightness, shortness of breath, wheezing and stridor. Cardiovascular: Negative for chest pain, palpitations and leg swelling. Gastrointestinal: Negative for abdominal pain. Musculoskeletal: Negative for myalgias. Neurological: Negative for dizziness, syncope and light-headedness. Psychiatric/Behavioral: The patient is not nervous/anxious. PHYSICAL EXAMINATION: BP 152/83 Pulse 103 Ht 5' 9 (1.75m) Wt 169 lb 6.4 oz (76.8kg) SpO2 96% BMI 25.00 kg/(m^2). Physical Exam Constitutional: Appearance: Normal appearance. Cardiovascular: Rate and Rhythm: Normal rate and regular rhythm. Heart sounds: No murmur heard. No friction rub. No gallop. Pulmonary: Effort: Pulmonary effort is normal. No respiratory distress. Breath sounds: Normal breath sounds. No wheezing, rhonchi or rales. Chest: Chest wall: No tenderness. Musculoskeletal: Right lower leg: No edema. Left lower leg: No edema. Neurological: Mental Status: He is alert. IMPRESSION & RECOMMENDATIONS: 1. Single vessel coronary artery disease LAD SHANTE. No future stress tests. 01/17/22 - Stable. 2. 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 3. Status post coronary artery stent placement Old AWMI 2009. 4. Nonrheumatic aortic valve insufficiency 1+AI. 01/17/22 - SBE prophylaxis. Stable. Graciela did echo mid-2021 - will ask for result. Next in 2023. 5. Thoracic aortic aneurysm without rupture (HCC) Echo 2020 - AO 3.6 cm. 6. Chronic atrial fibrillation (HCC) Dr. Cuadra. On Xarelto. Reg d/t pacing. 7. Benign hypertensive heart disease without heart failure 152/83. 01/17/22 - Has not taken meds yet today - will watch. 8. Pure hypercholesterolemia Per primary 9. PAD (peripheral artery disease) ([facility]) Leg stent for claudication. Bilat carotid disease 65% followed by Dr. Lyle. Omer Durham MD documented in this encounter [facility] 01-02-2022 Miscellaneous Notes Patient calls requesting refill: Pending Prescriptions Disp Refills HYDRALAZINE 50 MG TABLET 270 tablet 1 Sig: Take 1 tablet by mouth three times daily. ALMITA: No Date of last visit:10/23/2021 Phone #: [phone] (home) The patients preferred pharmacy has been captured for this encounter? yes documented in this encounter [facility] 11-23-2021 Miscellaneous Notes Spoke with patient and relayed Graciela's message: Let the patient know, echocardiogram looks okay. Ejection fraction is normal 65%. Trivial MR, mild-moderate TR, mild AR. Patient voiced understanding. Ivy Fregoso November 23, 2021 4:05 PM Left message for pt to return the call Let the patient know, echocardiogram looks okay. Ejection fraction is normal 65%. Trivial MR, mild-moderate TR, mild AR. documented in this encounter [facility] 11-01-2021 Miscellaneous Notes Echo order faxed to [place], they will call the patient and schedule the appointment. documented in this encounter [facility] 10-23-2021 History of Present illness Narrative Dual Pacer Report In Office Check Date: October 23, 2021 Time: 9:50 AM Devices: Implants Lead Ra Lead [employer]-04/16/2016 - Implanted Heart Model/Cat number: YONI S [id number] Serial number: [id number] Cnp: [employer] Lot number: LEFT CEPHALIC VEIN Size: Right Atrial Pacing Lead As of 05/01/2020 Status: Implanted Rv Lead Biotronik-04/16/2016 - Implanted Heart Model/Cat number: YONI S 60 [id number] Serial number: [id number] Cnp: [employer] Lot number: LEFT CEPHALIC VEIN Size: Right Ventricular Pacing Lead As of 07/24/2020 Status: Implanted Pacemaker Dual Pacer Biotronik-04/16/2016 - Implanted (Left) Chest Wall Model/Cat number: ELUNA 8 LETTY JORGENSEN [id number] Serial number: [id number] Cnp: [employer] Lot number: INITIAL DUAL PACEMAKER IMPLANT Size: Persistent Atrial Flutter; AV Dilia dysfunction; Sinus adriane, LVEF 59% Stress test March,; As of 10/23/2021 Status: Implanted Symptoms: Feels jittery this morning Underlying Rhythm: Normal Sinus Rhythm Last Interrogation Date: 04-17-2021 Estimated Remaining Longevity: 9 yrs until JUNIOR Dependency: No Interrogation Performed by: Charisse Cheng LPN Programming Parameters Mode: DDD Lower Rate: 60 Upper Track: 130 Upper Sensor: 120 Paced AV Delay: 180 Sensed AV Delay: 140 Atrial Refractory: ind Mode Switch: 160 Additional Device Information -VS percent: 7% -ANCHOR OPERATOR percent: 48% AP-VS percent: 22% AP-ANCHOR OPERATOR percent: 20% Atrial: Threshold: 1.0 V @ 0.2 msec Programmed amp/PW: 1.6 V @ 0.4 msec P wave: 5.1 mV Sensitivity: 0.5 mV Impedance: 312 ohms Pacing percent: 42% Right Ventricle: Threshold: 0.8 V @ 0.2 msec Programmed amp/PW: 1.0 V @ 0.75 msec R wave: 12.1 mV Sensitivity: 2.5 mV Impedance: 448 ohms RV pacin% Episodes: Atrial Fib count: 49 Atrial burden: 0% Mode Switch episodes: 0 Atrial ATP episode: 0 Ventricular ATP episodes: 0 Ventricular Fibrillation count: 0 Fast Ventricular Tachycardia count: 0 Slow Ventricular Tachycardia: 0 NSVT: 0 Summary: Patient feels jittery today. Normal device function. Normal pacing and sensing threshold. Battery: 9 yrs until JUNIOR. Atrial isodes: 49 AFIB events, longest 4 hours 46 minutes, 0% of the time. Better than last check in March. Ventricular episodes: none. Histogram: ok. Changes: none. Follow up: 3 month remote, 6 months device check and provider appointment. View External Cardiology - Market President Strips [ID [id number]] documented in this encounter [facility] documented as of this encounter (statuses as of 05/03/2022) [facility] History of Past illness Narrative* Problem Noted Date Resolved Date Angina pectoris 01/13/2018 04/24/2022 documented as of this encounter (statuses as of 05/20/2022) [facility] History of Past illness Narrative* Problem Noted Date Resolved Date Angina pectoris 01/13/2018 04/24/2022 documented as of this encounter (statuses as of 05/28/2022) [facility] History of Past illness Narrative* Problem Noted Date Resolved Date Angina pectoris 01/13/2018 04/24/2022 documented as of this encounter (statuses as of 06/28/2022) [facility] note* Diagnosis Encounter for care of pacemaker- Primary documented in this encounter [facility] note* Diagnosis Benign hypertension Essential hypertension, benign [facility] Diagnosis Single vessel coronary artery disease- Primary Coronary atherosclerosis of unspecified type of vessel, tejon or graft Old anterior myocardial infarction Old myocardial infarction Status post coronary artery stent placement Postsurgical percutaneous transluminal coronary angioplasty status Nonrheumatic aortic valve insufficiency Aortic valve disorders Thoracic aortic aneurysm without rupture (HCC) Thoracic aneurysm without mention of rupture Chronic atrial fibrillation (HCC) Atrial fibrillation Benign hypertensive heart disease without heart failure Pure hypercholesterolemia PAD (peripheral artery disease) (HCC) Peripheral vascular disease, unspecified [facility] Diagnosis Encounter for care of pacemaker- Primary [facility] Diagnosis Paroxysmal atrial flutter (HCC) Atrial flutter [facility] Diagnosis Benign hypertension Essential hypertension, benign [facility] Diagnosis Benign hypertension- Primary Essential hypertension, benign Mixed hyperlipidemia Coronary artery disease involving tejon coronary artery of tejon heart without angina pectoris Paroxysmal atrial flutter (HCC) Atrial flutter Current use of correction anticoagulation Long-term (current) use of anticoagulants Pacemaker Cardiac pacemaker in situ AV node dysfunction Other specified conduction disorder Sinus node dysfunction (HCC) Sinoatrial node dysfunction [facility] Diagnosis Encounter for care of pacemaker- Primary [facility] Diagnosis Benign hypertension Essential hypertension, benign [facility] Diagnosis Coronary artery disease involving tejon coronary artery of tejon heart without angina pectoris- Primary Old anterior myocardial infarction Old myocardial infarction Nonrheumatic aortic valve insufficiency Aortic valve disorders Benign hypertension Essential hypertension, benign Mixed hyperlipidemia 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 Paroxysmal atrial flutter (HCC) Atrial flutter documented in this encounter [facility] note* Diagnosis Encounter for care of pacemaker- Primary documented in this encounter [facility] note* Diagnosis Paroxysmal atrial flutter (HCC) Atrial flutter documented in this encounter [facility] note* Diagnosis Encounter for care of pacemaker- Primary 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) Type II or unspecified type diabetes mellitus with unspecified complication, not stated as uncontrolled documented in this encounter [facility] note* Diagnosis Encounter for care of pacemaker- Primary documented in this encounter [facility] note* Diagnosis Coronary artery disease involving tejon coronary artery of tejon heart without angina pectoris- Primary Old anterior myocardial infarction Old myocardial infarction H/O heart artery stent Postsurgical percutaneous transluminal coronary angioplasty status Nonrheumatic aortic valve insufficiency Aortic valve disorders Thoracic aortic aneurysm without rupture, unspecified part (HCC) Pacemaker Cardiac pacemaker in situ Paroxysmal atrial flutter (HCC) Atrial flutter Essential (primary) hypertension Unspecified essential hypertension 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 documented in this encounter [facility] note* Diagnosis Encounter for care of pacemaker- Primary documented in this encounter [facility] Summary Purpose Family History No Family History Records FoundNo Family History Records FoundNo Family History Records Found Advance Directives No Advanced Directives Records FoundNo Advanced Directives Records FoundNo Advanced Directives Records Found Additional Source Comments (unrecognized sect ion and content) No Status Records FoundNo Status Records FoundNo Status Records Found INFORMATION SOURCE (unrecogn ized section and content) DATE CREATED AUTHOR AUTHOR'S ORGANIZ ATION 11/30/2022 [facility] DATE CREATED AUTHOR AUTHOR'S ORGANIZ ATION 05/31/2023 [facility] nter Source Comments (unrecognize d section and content) In the event this informatio n is protected by the Federal Confidentiality of Alcohol and Drug Abuse Patient Records regulations: The Federal rules restrict any use of the information to criminally investigate or prosecute any alcohol or drug abuse patient.[facility] the event this information is protected by the Federal Confidentiality of Alcohol and Drug Abuse Patient Records regulations: The Federal rules restrict any use of the information to criminally investigate or prosecute any alcohol or drug abuse patient.[facility] the event this information is protected by the Federal Confidentiality of Alcohol and Drug Abuse Patient Records regulations: The Federal rules restrict any use of the information to criminally investigate or prosecute any alcohol or drug abuse patient.[facility] the event this information is protected by the Federal Confidentiality of Alcohol and Drug Abuse Patient Records regulations: The Federal rules restrict any use of the information to criminally investigate or prosecute any alcohol or drug abuse patient.[facility] the event this information is protected by the Federal Confidentiality of Alcohol and Drug Abuse Patient Records regulations: The Federal rules restrict any use of the information to criminally investigate or prosecute any alcohol or drug abuse patient.[facility] the event this information is protected by the Federal Confidentiality of Alcohol and Drug Abuse Patient Records regulations: The Federal rules restrict any use of the information to criminally investigate or prosecute any alcohol or drug abuse patient.[facility] the event this information is protected by the Federal Confidentiality of Alcohol and Drug Abuse Patient Records regulations: The Federal rules restrict any use of the information to criminally investigate or prosecute any alcohol or drug abuse patient.[facility] the event this information is protected by the Federal Confidentiality of Alcohol and Drug Abuse Patient Records regulations: The Federal rules restrict any use of the information to criminally investigate or prosecute any alcohol or drug abuse patient.[facility] the event this information is protected by the Federal Confidentiality of Alcohol and Drug Abuse Patient Records regulations: The Federal rules restrict any use of the information to criminally investigate or prosecute any alcohol or drug abuse patient.[facility] the event this information is protected by the Federal Confidentiality of Alcohol and Drug Abuse Patient Records regulations: The Federal rules restrict any use of the information to criminally investigate or prosecute any alcohol or drug abuse patient.[facility] the event this information is protected by the Federal Confidentiality of Alcohol and Drug Abuse Patient Records regulations: The Federal rules restrict any use of the information to criminally investigate or prosecute any alcohol or drug abuse patient.[facility] the event this information is protected by the Federal Confidentiality of Alcohol and Drug Abuse Patient Records regulations: The Federal rules restrict any use of the information to criminally investigate or prosecute any alcohol or drug abuse patient.[facility] the event this information is protected by the Federal Confidentiality of Alcohol and Drug Abuse Patient Records regulations: The Federal rules restrict any use of the information to criminally investigate or prosecute any alcohol or drug abuse patient.[facility] the event this information is protected by the Federal Confidentiality of Alcohol and Drug Abuse Patient Records regulations: The Federal rules restrict any use of the information to criminally investigate or prosecute any alcohol or drug abuse patient.[facility] the event this information is protected by the Federal Confidentiality of Alcohol and Drug Abuse Patient Records regulations: The Federal rules restrict any use of the information to criminally investigate or prosecute any alcohol or drug abuse patient.[facility] the event this information is protected by the Federal Confidentiality of Alcohol and Drug Abuse Patient Records regulations: The Federal rules restrict any use of the information to criminally investigate or prosecute any alcohol or drug abuse patient.[facility] the event this information is protected by the Federal Confidentiality of Alcohol and Drug Abuse Patient Records regulations: The Federal rules restrict any use of the information to criminally investigate or prosecute any alcohol or drug abuse patient.[facility] the event this information is protected by the Federal Confidentiality of Alcohol and Drug Abuse Patient Records regulations: The Federal rules restrict any use of the information to criminally investigate or prosecute any alcohol or drug abuse patient.[facility] the event this information is protected by the Federal Confidentiality of Alcohol and Drug Abuse Patient Records regulations: The Federal rules restrict any use of the information to criminally investigate or prosecute any alcohol or drug abuse patient.[facility] the event this information is protected by the Federal Confidentiality of Alcohol and Drug Abuse Patient Records regulations: The Federal rules restrict any use of the information to criminally investigate or prosecute any alcohol or drug abuse patient.[facility] the event this information is protected by the Federal Confidentiality of Alcohol and Drug Abuse Patient Records regulations: The Federal rules restrict any use of the information to criminally investigate or prosecute any alcohol or drug abuse patient.[facility] the event this information is protected by the Federal Confidentiality of Alcohol and Drug Abuse Patient Records regulations: The Federal rules restrict any use of the information to criminally investigate or prosecute any alcohol or drug abuse patient.[facility] the event this information is protected by the Federal Confidentiality of Alcohol and Drug Abuse Patient Records regulations: The Federal rules restrict any use of the information to criminally investigate or prosecute any alcohol or drug abuse patient.[facility] Reason for Visit (unrecogniz ed section and content) Reason Comments Permanent Pacemaker Reason Comments Results Reason Onset Date Comments Refill Request 01/02/2022 Reason Comments Follow Up 6 month follow up Reason Comments Remote Pacemaker Follow Up Reason Onset Date Comments Refill Request 01/30/2022 Reason Onset Date Comments Refill Request 03/12/2022 Reason Onset Date Comments Refill Request 03/30/2022 Reason Comments Follow Up Reason Onset Date Comments Refill Request 05/02/2022 Reason Onset Date Comments Refill Request 06/26/2022 Reason Comments Follow Up 6 month FU Reason Comments Refill Request Reason Comments Medication Problem TC from Mrs. Herrera. Bryn had a nosebleed while in the shower last PM; took over an hour to get the bleeding stopped. Did well overnight. Advised them to go to family doctor or ER today for evaluation. Should not stop the Xarelto 15mg he is taking. Reason Onset Date Comments Refill Request 05/24/2023 Care Teams (unrecognized sec tion and content) Metal Lather Relationship Specialty Start Date End Date Bert Mccann MD [address] [facility] [address] [place] [address] PCP - General Family Practice 10/06/19 Metal Lather Relationship Specialty Start Date End Date Bert Mccann MD [address] [facility] [address] [place] [address] PCP - General Family Practice 10/06/19 Metal Lather Relationship Specialty Start Date End Date Bert Mccann MD [address] [facility] [address] [place] [address] PCP - General Family Practice 10/06/19 Metal Lather Relationship Specialty Start Date End Date Bert Mccann MD [address] [facility] [address] [place] [address] PCP - General Family Practice 10/06/19 Metal Lather Relationship Specialty Start Date End Date Bert Mccann MD [address] [facility] [address] [place] [address] PCP - General Family Practice 10/06/19 Metal Lather Relationship Specialty Start Date End Date Bert Mccann MD [address] [facility] [address] [place] [address] PCP - General Family Practice 10/06/19 Metal Lather Relationship Specialty Start Date End Date Bert Mccann MD [address] [facility] [address] [place] [address] PCP - General Family Practice 10/06/19 Metal Lather Relationship Specialty Start Date End Date Bert Mccann MD [address] [facility] [address] [place] [address] PCP - General Family Medicine 10/06/19 Metal Lather Relationship Specialty Start Date End Date Bert Mccann MD [address] [facility] [address] [address] [place] [address] PCP - General Family Medicine 10/06/19 Metal Lather Relationship Specialty Start Date End Date Bert Mccann MD [address] [facility] [address] [address] [place] [address] PCP - General Family Medicine 10/06/19 Metal Lather Relationship Specialty Start Date End Date Bert Mccann MD [address] [facility] [address] [address] [place] [address] PCP - General Family Medicine 10/06/19 Metal Lather Relationship Specialty Start Date End Date Bert Mccann MD [address] [facility] [address] [place] [address] PCP - General Family Medicine 10/06/19 Metal Lather Relationship Specialty Start Date End Date Bert Mccann MD [address] [facility] [address] [place] [address] PCP - General Family Medicine 10/06/19 Metal Lather Relationship Specialty Start Date End Date Bert Mccann MD [address] [facility] [address] [place] [address] PCP - General Family Medicine 10/06/19 Metal Lather Relationship Specialty Start Date End Date Bert Mccann MD [address] [facility] [address] [place] [address] PCP - General Family Medicine 10/06/19 Metal Lather Relationship Specialty Start Date End Date Bert Mccann MD [address] [facility] [address] [place] [address] PCP - General Family Medicine 10/06/19 Metal Lather Relationship Specialty Start Date End Date Bert Mccann MD [address] [facility] [address] [place] [address] PCP - General Family Medicine 10/06/19 Metal Lather Relationship Specialty Start Date End Date Bert Mccann MD [address] [facility] [address] [place], [place] [id number] PCP - General Family Medicine 10/06/19 Metal Lather Relationship Specialty Start Date End Date Bert Mccann MD [address] [facility] [address] [place], [place] [address] PCP - General Family Medicine 10/06/19 FOR RECORDS PERTAINING TO PATIENTS WHO ARE OR HAVE BEEN ENROLLED IN A CHEMICAL DEPENDENCY/SUBSTANCEABUSE PROGRAM, SOME INFORMATION MAY BE OMITTED. This clinical summary was aggregated from multiple sources. Caution should be exercised in using it in the provision of clinical care. This summary normalizes information from multiple sources, and as a consequence, information in this document may materially change the coding, format and clinical context of patient data. In addition, data may be omitted in some cases. CLINICAL DECISIONS SHOULD BE BASED ON THE PRIMARY CLINICAL RECORDS. [employer] [facility]. provides no warranty or guarantee of the accuracy or completeness of information in this document.
== END | disposition home or self-care (01) ==
LOC: MFPLAB 10:34
PROVIDERS: PCP Family Medicine; Visit Provider Family Medicine
DX: E11.9 Type 2 diabetes mellitus without complications (principal)
CPT/HCPCS: 36415; 80048; 80061; 82043; 82570

== ENCOUNTER → 2024-03-02 | Outpatient (CLI) | payer MEDICARE, OTHER, SELFPAY ==
[2024-03-02 16:22] LABS: Anion Gap 7 (5-15); BUN 33 mg/dL (7-18); BUN/Creat Ratio 21.6 RATIO (10-20); Calcium,Total 9.3 mg/dL (8.5-10.1); Chloride 110 mmol/L (98-107); Cholesterol 108 mg/dL (200); Creatinine, Serum 1.53 mg/dL (0.70-1.30); EST Glomerular Filtration Rate 46 mL/min (>60); Est Glom Filt Rate - Afr Amer 56 mL/min (>60); Glucose 121 mg/dL (74-106); High Density Lipoprotein 53 mg/dL; Potassium 4.2 mmol/L (3.5-5.1); Sodium Level 140 mmol/L (136-145); Triglycerides 125 mg/dL; Very Low Density Lipoprotein 25 mg/dL (5-40)
== END | disposition home or self-care (01) ==
LOC: MFPLAB 11:04
PROVIDERS: PCP Family Medicine; Visit Provider Family Medicine
DX: E11.9 Type 2 diabetes mellitus without complications (principal)
CPT/HCPCS: 36415; 80048; 80061

== ENCOUNTER → 2024-08-31 | Outpatient (CLI) | payer MEDICARE, OTHER, SELFPAY ==
[2024-08-31 15:02] LABS: Microalbumin:Creatinine Ratio 1117.6 mg/g CRE
[2024-08-31 16:27] LABS: Chloride 106 mmol/L (98-108); EST Glomerular Filtration Rate 46 (>60); Potassium 4.6 mmol/L (3.3-5.1); Sodium Level 140 mmol/L (133-145)
[2024-08-31 19:44] LABS: Cholesterol 126 mg/dL (<=200); High Density Lipoprotein 56 mg/dL; Low Density Lipoprotein Calc. 50 mg/dL; Triglycerides 99 mg/dL; Very Low Density Lipoprotein 20 mg/dL (5-40); cholesterol:hdl ratio screen 2.25
[2024-08-31 19:56] LABS: ALB/GLOB Ratio 1.1 RATIO (0.9-2.4); AST(SGOT) 22 U/L (<=37); Alanine Aminotransfer ALT/SGPT 17 U/L (<=46); Alkaline Phosphatase 78 U/L (40-129); Anion Gap 13 (5-15); BUN 26 mg/dL (4-19); BUN/Creat Ratio 18.6 RATIO (10-20); Calcium,Total 9.6 mg/dL (7.6-11.0); Carbon Dioxide 20.9 mmol/L (21.0-32.0); Creatinine, Serum 1.38 mg/dL (0.70-1.20); Globulin 3.8 g/dL (2.2-4.2); Glucose 131 mg/dL (70-99); Protein, Total 7.8 g/dL (5.9-8.4); Total Bilirubin 0.57 mg/dL (0.00-1.30)
== END | disposition home or self-care (01) ==
LOC: MFPLAB 11:00
PROVIDERS: PCP Family Medicine; Visit Provider Family Medicine
DX: E11.9 Type 2 diabetes mellitus without complications (principal)
CPT/HCPCS: 36415; 80053; 80061; 82043; 82570

== ENCOUNTER → 2025-06-09 | Outpatient (CLI) | payer MEDICARE, OTHER, SELFPAY ==
[2025-06-09 15:58] LABS: AST(SGOT) 19 U/L (<=37); Alanine Aminotransfer ALT/SGPT 14 U/L (<=46); Albumin, Serum 4.0 g/dL (3.4-4.8); Alkaline Phosphatase 84 U/L (40-129); Anion Gap 12 (5-15); BUN 20 mg/dL (4-19); BUN/Creat Ratio 15.1 RATIO (10-20); Calcium,Total 9.3 mg/dL (7.6-11.0); Carbon Dioxide 24.0 mmol/L (21.0-32.0); Chloride 106 mmol/L (98-108); Globulin 3.4 g/dL (2.2-4.2); Glucose 129 mg/dL (70-99); Potassium 4.1 mmol/L (3.3-5.1)
== END | disposition home or self-care (01) ==
LOC: MFPLAB 11:27
PROVIDERS: PCP Family Medicine; Visit Provider Family Medicine
DX: I10 Essential (primary) hypertension (principal)
CPT/HCPCS: 36415; 80053